=== PATIENT | female | born 1960 | race Caucasian/White ===

== ENCOUNTER → 2020-09-06 14:37 | Outpatient (BNVA) | payer OTHER, SELFPAY | PROVIDERS: Family Provider Family Medicine; PCP Obstetrics & Gynecology; Visit Provider Internal Medicine | DX: R76.8 Other specified abnormal immunological findings in serum (principal); M25.50 Pain in unspecified joint; Z79.899 Other long term (current) drug therapy; Z11.59 Encounter for screening for other viral diseases; M35.00 Sjogren syndrome, unspecified; R53.83 Other fatigue | CPT/HCPCS: 99204 ==

== ENCOUNTER 2020-09-06 16:09 | Outpatient (CLI) | payer MEDICARE, MEDICAID, SELFPAY ==
--- NOTE | 2020-09-06 16:26 | XR_ITS ---
WS: [id number] Exam: XR hand LT 2V [id number] Date/Time of Exam: 09/06/2020 4:34 PM Reason For Exam: R76.8 - Other specified abnormal immunological findings in serum No fracture or dislocation. Mild degenerative changes in the IP joints. Moderate degenerative change of the IP joint of the thumb. No soft tissue foreign bodies. No cortical erosions or periarticular de mineralization. XR/XR hand LT 2V [id number] IMPRESSION: 1. Mild degenerative changes in the IP joints particularly the DIP joint of the thumb. 2. No fracture or other significant finding.
--- NOTE | 2020-09-06 16:26 | XR_ITS ---
WS: [id number] Exam: XR hand RT 2V [id number] Date/Time of Exam: 09/06/2020 4:34 PM Reason For Exam: R76.8 - Other specified abnormal immunological findings in serum No fracture or dislocation. There are moderate degenerative changes in the IP joints. No cortical ero sions or periarticular demineralization of bone. No soft tissue foreign bodies. XR/XR hand RT 2V [id number] IMPRESSION: 1. Moderate degenerative changes in the IP joints. No other significant finding .
--- NOTE | 2020-09-06 16:26 | XR_ITS ---
WS: [id number] Exam: XR sacroiliac jts m 3V [id number] Date/Time of Exam: 09/06/2020 4:34 PM Reason For Exam: L40.9 - Psoriasis, unspecified There is moderate degenerative change of the bilateral sacroiliac joints. No fracture or dislocation. No sign of bone destruction. The bilateral sacroiliac joints are open. XR/XR sacroiliac jts m 3V [id number] IMPRESSION: 1. Moderate degenerative change of both SI joints. No other significant finding .
[2020-09-06 17:16] LABS: Add Urine Microscopic? NO
[2020-09-06 17:33] LABS: Basophils % 0.3 %; Eosinophils # 0.2 10^3/uL (0.0-0.8); Eosinophils % 3.5 %; Hematocrit 36.3 % (37.0-47.0); Hemoglobin 11.8 g/dL (11.5-15.3); Lymphocytes # 2.3 10^3/uL (0.8-4.8); Lymphocytes % 33.9 %; Mean Corpuscular HGB Conc 32.5 g/dL (30.0-36.0); Mean Corpuscular Hemoglobin 26.4 pg (28.0-34.0); Mean Corpuscular Volume 81.2 fL (81-99); Mean Platelet Volume 9.9 fL (7.4-10.4); Monocytes # 0.6 10^3/uL (0.2-0.9); Monocytes % 8.6 %; Neutrophils # 3.68 10^3/uL (1.8-7.7); Neutrophils % 53.4 %; Nucleated Red Blood Cells % 0 %; Platelet Count 275 10^3/cmm (130-400); Red Blood Count 4.47 10^6/uL (4.1-5.3); Red Cell Distribution Width 13.3 % (12.1-15.1); White Blood Count 6.9 10^3/uL (4.0-10.0)
[2020-09-06 17:40] LABS: Creatine Phosphokinase 57 U/L (26-192)
[2020-09-06 17:49] LABS: Bilirubin Urine Neg (Negative); Blood Urine Neg (Negative); Glucose Urine UA Norm (Normal); Ketones Urine Negative (Negative); Leukocyte Esterase Urine Negative (Negative); Nitrate Urine Negative (Negative); Protein Urine Neg (Negative); Specific Gravity, Urine 1.005 (1.005-1.030); Urine Appearance Cloudy (CLEAR); Urine Color Yellow (Yellow); Urobilinogen Urine Norm (Negative); pH Urine 5 (5-7)
[2020-09-06 18:56] LABS: Hepatitis B Core AB, Total Non-Reactive (Nonreactive); Hepatitis B Surface Antigen Non-Reactive (Nonreactive)
[2020-09-06 19:34] LABS: Complement C3 127 mg/dL (90-180)
[2020-09-10 14:26] LABS: COMPLEMENT COMPONENT C3C 140 mg/dL (83-193); COMPLEMENT COMPONENT C4C 22 mg/dL (15-57)
[2020-09-10 15:27] LABS: COMPLEMENT, TOTAL (CH50) 56 U/mL (31-60); Cyclic Citrullinated Peptide <16 UNITS
[2020-09-11 16:11] LABS: CENTROMERE B ANTIBODY <1.0 NEG AI (<1.0 NEG); JO-1 ANTIBODY <1.0 NEG AI (<1.0 NEG); RNP ANTIBODY <1.0 NEG AI (<1.0 NEG); SCL-70 ANTIBODY <1.0 NEG AI (<1.0 NEG); SJOGREN'S ANTIBODY (SS-A) <1.0 NEG AI (<1.0 NEG); SM ANTIBODY <1.0 NEG AI (<1.0 NEG); SS-B <1.0 NEG AI (<1.0 NEG)
[2020-09-12 12:19] LABS: ANA PATTERN Nuclear Envelope; ANA SCREEN, IFA POSITIVE (NEGATIVE)
[2020-09-12 16:58] LABS: THYROID PEROXIDASE ANTIBODIES 121 IU/mL (<9)
[2020-09-16 00:28] LABS: DNA AB (DS) CRITHIDIA,IFA NEGATIVE (NEGATIVE)
== END 2020-09-06 16:10 | disposition home or self-care (01) ==
PROVIDERS: PCP Obstetrics & Gynecology; Visit Provider Internal Medicine
DX: R76.8 Other specified abnormal immunological findings in serum (principal); L40.9 Psoriasis, unspecified; D86.9 Sarcoidosis, unspecified; Z11.59 Encounter for screening for other viral diseases
CPT/HCPCS: 36415; 72202; 73120; 81003; 82550; 85025; 86160; 86162; 86235; 86255; 86376; 86431; 86704; 87340

== ENCOUNTER → 2020-12-28 10:44 | Outpatient (BNVA) | payer MEDICARE, MEDICAID, SELFPAY | PROVIDERS: PCP Obstetrics & Gynecology; Visit Provider Internal Medicine | DX: R76.8 Other specified abnormal immunological findings in serum (principal); M53.3 Sacrococcygeal disorders, not elsewhere classified; M25.50 Pain in unspecified joint; R53.83 Other fatigue; D86.9 Sarcoidosis, unspecified | CPT/HCPCS: 36415; 80053; 82550; 82607; 83735; 84100; 85025; 86160; 86812; 99213; 99214 ==

== ENCOUNTER 2020-12-28 12:41 | Outpatient (CLI) | payer MEDICARE, MEDICAID, SELFPAY ==
[2020-12-28 13:20] LABS: Basophils % 0.6 %; Eosinophils # 0.3 10^3/uL (0.0-0.8); Eosinophils % 4.6 %; Hematocrit 36.1 % (37.0-47.0); Lymphocytes # 2.5 10^3/uL (0.8-4.8); Lymphocytes % 35.4 %; Mean Corpuscular HGB Conc 33.2 g/dL (30.0-36.0); Mean Corpuscular Hemoglobin 28.2 pg (28.0-34.0); Mean Corpuscular Volume 84.7 fL (81-99); Mean Platelet Volume 9.6 fL (7.4-10.4); Monocytes # 0.5 10^3/uL (0.2-0.9); Monocytes % 7.8 %; Neutrophils # 3.56 10^3/uL (1.8-7.7); Neutrophils % 51.5 %; Nucleated Red Blood Cells % 0 %; Platelet Count 259 10^3/cmm (130-400); Red Blood Count 4.26 10^6/uL (4.1-5.3); Red Cell Distribution Width 12.3 % (12.1-15.1); White Blood Count 6.9 10^3/uL (4.0-10.0)
[2020-12-28 13:38] LABS: Alanine Aminotransferase 20 U/L (0-33); Alkaline Phosphatase 59 IU/L (35-105); Anion Gap 11.5 (5-19); Aspartate Amino Transferase 18 U/L (0-32); Blood Urea Nitrogen 9 mg/dL (6-20); Calcium 8.6 mg/dL (8.5-10.5); Carbon Dioxide 31 mmol/L (22-29); Chloride 93 mmol/L (98-107); Creatine Phosphokinase 49 U/L (26-192); Globulin 2.7 g/dL (1.3-4.6); Glomerular Filtration Rate 126.7 mL/min (90-130); Glucose 108 mg/dL (65-115); Magnesium 1.6 mg/dL (1.7-2.3); Osmolality Calculated 273 mOsm/kg (285-295); Phosphorus 3.8 mg/dL (2.5-4.5); Potassium 3.5 mmol/L (3.5-5.1); Sodium 132 mmol/L (136-145); Total Bilirubin 0.3 mg/dL (0.15-1.2); Total Protein 6.7 g/dL (6.6-8.7)
[2020-12-28 13:54] LABS: Vitamin B12 579 pg/mL (232-1245)
[2020-12-28 14:58] LABS: Complement C3 134 mg/dL (90-180)
[2021-01-02 16:18] LABS: HLA-B27 NEGATIVE (NEGATIVE)
== END 2020-12-28 12:42 | disposition home or self-care (01) ==
PROVIDERS: PCP Obstetrics & Gynecology; Visit Provider Internal Medicine
DX: M53.3 Sacrococcygeal disorders, not elsewhere classified (principal); D86.9 Sarcoidosis, unspecified
CPT/HCPCS: 36415; 80053; 82550; 82607; 83735; 84100; 85025; 86160; 86812

== ENCOUNTER → 2021-03-25 11:00 | Outpatient (BNVA) | payer MEDICARE, MEDICAID, SELFPAY | PROVIDERS: PCP Obstetrics & Gynecology; Referring Provider Internal Medicine; Visit Provider Anesthesiology Pain Medicine | DX: G89.29 Other chronic pain (principal); M43.12 Spondylolisthesis, cervical region; M48.062 Spinal stenosis, lumbar region with neurogenic claudication; Z79.891 Long term (current) use of opiate analgesic | CPT/HCPCS: 99204 ==

== ENCOUNTER 2021-04-15 13:31 | Outpatient (CLI) | payer MEDICARE, MEDICAID, SELFPAY ==
--- NOTE | 2021-04-15 13:45 | MR_ITS ---
WS: [id number] MRI LUMBAR SPINE NONCONTRAST HISTORY: M48.062 - Spinal stenosis, lumbar region with neurogenic claudication. COMPARISON: None available. TECHNIQUE: Sagittal and axial multisequence imaging is submitted. Marked increase in thoracic kyphosis and lumbar lordosis. Posterior lumbar alignment is normal. Moderate disc space narrowing and desiccation with osteophytes and facet arthritis. No acute marrow e kushal or fracture. Conus terminates normally at L1-2 disc level. Facet joint arthritis at T10-11 and T11-12 encroaching into the posterior thecal sac. No high-grade s tenosis evident. L1-L2: Minimal narrowing of the RIGHT foramen. L2-L3: Mild annular disc bulging with mild ligamentum flavum and facet arthritis. Mild foraminal narr owing. L3-L4: Mild annular disc bulging and a very shallow central disc protrusion. There is an additional L EFT foraminal disc protrusion causing mild narrowing of the subarticular recess. Mild bilateral ligam entum flavum hypertrophy and facet arthritis. L4-L5: Mild annular disc bulging with a moderate size central disc protrusion. Disc protrusion causin g mild effacement of the ventral thecal sac. Moderate ligamentum flavum and facet arthritis. These co mbination of factors are causing moderate central with bilateral subarticular recess and mild foramin al stenosis. L5-S1: Mild annular disc bulging and facet arthritis. No stenosis. MR/MR lumbar spine wo con* [id number] IMPRESSION: 1. Moderate increase in lumbar lordosis. 2. Moderate central and bilateral subarticular recess stenosis L4-5 with mild foraminal stenosis. 3. Moderate size central disc protrusion at L4-5 contributing to the central s tenosis. 4. Shallow central disc protrusion at L3-4 and a small LEFT foraminal disc pro trusion causing mild narrowing of the subarticular recess. 5. Facet joint arthritis throughout the lumbar spine most significant at L4-5 and L5-S1.
== END 2021-04-15 13:32 | disposition home or self-care (01) ==
PROVIDERS: PCP Obstetrics & Gynecology; Visit Provider Anesthesiology Pain Medicine
DX: M48.062 Spinal stenosis, lumbar region with neurogenic claudication (principal); M48.061 Spinal stenosis, lumbar region without neurogenic claudication; M51.26 Other intervertebral disc displacement, lumbar region; M47.816 Spondylosis without myelopathy or radiculopathy, lumbar region
CPT/HCPCS: 72148

== ENCOUNTER → 2021-04-22 10:55 | Outpatient (BNVA) | payer MEDICARE, MEDICAID, SELFPAY | PROVIDERS: PCP Obstetrics & Gynecology; Visit Provider Anesthesiology Pain Medicine | DX: G89.29 Other chronic pain (principal); M47.816 Spondylosis without myelopathy or radiculopathy, lumbar region; M79.604 Pain in right leg; M79.605 Pain in left leg; M54.2 Cervicalgia; Z79.891 Long term (current) use of opiate analgesic | CPT/HCPCS: 99214 ==

== ENCOUNTER → 2021-05-27 12:47 | Outpatient (BNVA) | payer MEDICARE, MEDICAID, SELFPAY | PROVIDERS: PCP Obstetrics & Gynecology; Visit Provider Anesthesiology Pain Medicine | DX: Z01.812 Encounter for preprocedural laboratory examination (principal); M54.16 Radiculopathy, lumbar region | CPT/HCPCS: 36416; 64483; 64484; 82962; J1100; J3490 ==

== ENCOUNTER → 2021-06-20 12:53 | Outpatient (BNVA) | payer MEDICARE, MEDICAID, SELFPAY | PROVIDERS: PCP Obstetrics & Gynecology; Visit Provider Anesthesiology Pain Medicine | DX: M25.50 Pain in unspecified joint (principal); M35.00 Sjogren syndrome, unspecified; M53.3 Sacrococcygeal disorders, not elsewhere classified; R76.8 Other specified abnormal immunological findings in serum; Z79.899 Other long term (current) drug therapy; M54.9 Dorsalgia, unspecified; G89.29 Other chronic pain; M47.816 Spondylosis without myelopathy or radiculopathy, lumbar region; M54.2 Cervicalgia; M79.604 Pain in right leg; M79.605 Pain in left leg; Z79.891 Long term (current) use of opiate analgesic; Z98.1 Arthrodesis status | CPT/HCPCS: 36415; 80053; 85025; 85651; 86140; 99214 ==

== ENCOUNTER → 2021-06-24 13:26 | Outpatient (BNVA) | payer MEDICARE, MEDICAID, SELFPAY | PROVIDERS: PCP Obstetrics & Gynecology; Visit Provider Internal Medicine | DX: R76.8 Other specified abnormal immunological findings in serum (principal); M53.3 Sacrococcygeal disorders, not elsewhere classified; M25.50 Pain in unspecified joint; M48.00 Spinal stenosis, site unspecified; K85.90 Acute pancreatitis without necrosis or infection, unspecified; Z79.899 Other long term (current) drug therapy | CPT/HCPCS: 99214 ==

== ENCOUNTER → 2021-07-30 14:34 | Outpatient (BNVA) | payer MEDICARE, MEDICAID, SELFPAY | PROVIDERS: PCP Obstetrics & Gynecology; Visit Provider Anesthesiology Pain Medicine | DX: Z79.891 Long term (current) use of opiate analgesic (principal); M47.816 Spondylosis without myelopathy or radiculopathy, lumbar region | CPT/HCPCS: 64493; 64494; 64495; J3490 ==

== ENCOUNTER → 2021-08-12 13:28 | Outpatient (BNVA) | payer MEDICARE, MEDICAID, SELFPAY | PROVIDERS: PCP Obstetrics & Gynecology; Visit Provider Anesthesiology Pain Medicine | DX: G89.29 Other chronic pain (principal); M47.816 Spondylosis without myelopathy or radiculopathy, lumbar region | CPT/HCPCS: 64493; 64494; 64495; J3490 ==

== ENCOUNTER → 2021-08-26 09:31 | Outpatient (BNVA) | payer MEDICARE, MEDICAID, SELFPAY | PROVIDERS: PCP Obstetrics & Gynecology; Visit Provider Anesthesiology Pain Medicine | DX: G89.29 Other chronic pain (principal); M48.062 Spinal stenosis, lumbar region with neurogenic claudication; M54.2 Cervicalgia; M79.605 Pain in left leg; M79.604 Pain in right leg; Z79.891 Long term (current) use of opiate analgesic | CPT/HCPCS: 99214 ==

== ENCOUNTER → 2021-09-10 14:58 | Outpatient (BNVA) | payer MEDICARE, MEDICAID, SELFPAY | PROVIDERS: PCP Obstetrics & Gynecology; Visit Provider Physician Assistant | DX: M54.50 Low back pain, unspecified (principal); M48.061 Spinal stenosis, lumbar region without neurogenic claudication | CPT/HCPCS: 72110 ==

== ENCOUNTER → 2021-09-30 09:19 | Outpatient (BNVA) | payer MEDICARE, MEDICAID, SELFPAY | PROVIDERS: PCP Obstetrics & Gynecology; Visit Provider Internal Medicine | DX: R76.8 Other specified abnormal immunological findings in serum (principal); M53.3 Sacrococcygeal disorders, not elsewhere classified; M51.36 Other intervertebral disc degeneration, lumbar region; R53.83 Other fatigue | CPT/HCPCS: 99214 ==

== ENCOUNTER 2021-10-21 13:39 | Observation (INO) | payer MEDICARE, MEDICAID, SELFPAY ==
[2021-10-16 13:30] VITALS: BMI 39.6
--- NOTE | 2021-10-16 13:38 | ANES.PREANE2 ---
Pre-Anesthetic Assessment Height/Weight: Height 1.57 m Weight 98.43 kg Operation Date: 10/21/21 07:00 Proposed Procedures p PLIF [id number]/42891/99439/19210/M48.062/M51.36(Not Applicable) - Cole Medina, DO Familial anesthetic complications: None Social No alcohol and No tobacco Exam alert, oriented x 3, clear to auscultation bilaterally and regular rate & rhythm Airway Mallampati: Class III Dentition: partials and other (crowns) CV/HEM Hypertension None reported Hepatic None reported Metabolic Diabetes Mellitus and Morbid Obesity [facility] Rheumatoid Arthritis (has had neck fused) SIVAKUMAR positive, but diagnosed w/ lupus Neuropsych None reported Anesthetic Plan ASA status: 4 Risk of > 500 ml blood loss (7ml/kg in children): No Medications/Allergies Home Medications Medication Instructions Recorded Confirmed Last Taken Type atenolol 50 mg tablet 50 mg PO DAILY 09/06/20 10/16/21 Unknown History fluticasone propionate 50 1 spray INTRANASAL DAILY 09/06/20 10/16/21 Unknown History mcg/actuation nasal spray,suspension glipizide 5 mg tablet 5 mg PO BEDTIME 09/06/20 10/16/21 Unknown History hydrochlorothiazide 50 mg tablet 50 mg PO DAILY 09/06/20 10/16/21 Unknown History hydrocodone 10 mg-acetaminophen 1 tab PO Q6H PRN 09/06/20 10/16/21 Unknown History 325 mg tablet isosorbide mononitrate 30 mg 30 mg PO DAILY 09/06/20 10/16/21 Unknown History tablet,extended release 24 hr lisinopril 40 mg tablet 40 mg PO DAILY 09/06/20 10/16/21 Unknown History omeprazole 40 mg capsule,delayed 40 mg PO DAILY 09/06/20 10/16/21 Unknown History release oxybutynin chloride 5 mg tablet 5 mg PO BID 09/06/20 10/16/21 Unknown History potassium chloride 20 mEq 20 meq PO BID 09/06/20 10/16/21 Unknown History tablet,extended release(part/cryst) (Klor-Con M) pravastatin 20 mg tablet 20 mg PO DAILY 09/06/20 10/16/21 Unknown History pseudoephedrine HCl 30 mg tablet 30 mg PO Q6H 09/06/20 10/16/21 Unknown History citalopram 40 mg tablet 40 mg PO DAILY 10/16/21 10/16/21 Unknown History gabapentin 100 mg capsule 100 mg PO TID 10/16/21 10/16/21 Unknown History godveicncpxf-qqgkolep-hzdlpy 1 tab PO BEDTIME 10/16/21 10/16/21 Unknown History tablet (Multivitamin 50 Plus) sennosides 8.6 mg tablet (senna) 8.6 mg PO DAILY PRN 10/16/21 10/16/21 Unknown History sulfasalazine 500 mg tablet 500 mg PO DAILY 10/16/21 10/16/21 Unknown History Allergies Allergy/AdvReac Type Severity Reaction Status Date / Time No Known Allergies Allergy Verified 09/30/21 09:36 PFS Anesthesia Family History Mother Stroke Hypertension Family history of premature coronary artery disease Diabetes Cancer CAD (coronary artery disease) Rheumatoid arthritis Father Hypertension Diabetes CAD (coronary artery disease) Family/Other Lupus Social History Smoking and tobacco status: never smoked Second hand smoke exposure: No Alcohol intake: never Lives independently: Yes History of recent travel: No Data Anesthesia Cardiac Studies: No Data to Display
[2021-10-16 14:15] LABS: Basophils % 0.6 %; Hematocrit 35.1 % (37.0-47.0); Hemoglobin 11.7 g/dL (11.5-15.3); Lymphocytes # 2.1 10^3/uL (0.8-4.8); Lymphocytes % 31.3 %; Mean Corpuscular HGB Conc 33.3 g/dL (30.0-36.0); Mean Corpuscular Hemoglobin 27.9 pg (28.0-34.0); Mean Corpuscular Volume 83.8 fl (81-99); Mean Platelet Volume 9.5 fL (7.4-10.4); Monocytes # 0.5 10^3/uL (0.2-0.9); Monocytes % 7.9 %; Neutrophils # 3.99 10^3/uL (1.8-7.7); Neutrophils % 59.8 %; Nucleated Red Blood Cells % 0 %; Platelet Count 225 10^3/cmm (130-400); Red Blood Count 4.19 10^6/uL (4.1-5.3); Red Cell Distribution Width 12.2 % (12.1-15.1); White Blood Count 6.7 10^3/uL (4.0-10.0)
[2021-10-16 14:31] LABS: Alanine Aminotransferase 15 U/L (0-33); Albumin Level 4.2 g/dL (3.5-5.2); Alkaline Phosphatase 64 IU/L (35-105); Anion Gap 14.4 (5-19); Aspartate Amino Transferase 16 U/L (0-32); Blood Urea Nitrogen 14 mg/dL (6-20); Calcium 9.2 mg/dL (8.5-10.5); Carbon Dioxide 27 mmol/L (22-29); Chloride 93 mmol/L (98-107); Globulin 2.6 g/dL (1.3-4.6); Glomerular Filtration Rate 126.3 mL/min (90-130); Glucose 154 mg/dL (65-115); Osmolality Calculated 276 mOsm/kg (285-295); Potassium 3.4 mmol/L (3.5-5.1); Sodium 131 mmol/L (136-145); Total Bilirubin 0.3 mg/dL (0.15-1.2); Total Protein 6.8 g/dL (6.6-8.7)
[2021-10-21] VITALS (34 sets, daily range): BP systolic 99–159; BP diastolic 49–79; PULSE 53–75; RESP 12–27; TEMP 36.6–37.5; O2SAT 92–100
--- NOTE | 2021-10-21 | XR_ITS ---
WS: [id number] C-ARM RADIOGRAPHS LUMBAR SPINE; 3 IMAGES HISTORY: spondylosis, stenosis COMPARISON: None available. Intraoperative imaging during lumbar fusion. Posterior fusion hardware at L4-5 with interbody spacer. XR/XR lumbar spine 2-3V* [id number] IMPRESSION: Intraoperative imaging during posterior lumbar fusion.
--- NOTE | 2021-10-21 | SCC_ITS ---
Procedure done: 1. L4/5 Interbody fusion with posterolateral fusion 2. Instrumentation L4/5 3. Cage at L4/5 4. Laminectomy L4 with partial facetectomy to deompress nerve 5. use of autograft from same incision 6. allograft 7. Bone marrow aspirate from right iliac crest 8. Computer navigation/ stereo tactic for the spine 1 second of fluoroscopic guidance, for a cumulative dose of 83.4 mGy, was provided to Dr. Medina by the radiology department. C-arm images of the lumbar spine were saved for the patient's permanent record. [facility]
--- NOTE | 2021-10-21 09:32 | P.HP_ITS ---
Providers/Chief Complaint Primary Care Provider: Sathya Villalpando MD Chief Complaint: idd, Spondylosis,spinal stenosis History of Present Illness Abby Alcantara is a 61 year old female lumbar back and right lower extremity pain. Patient states the back pain has been ongoing on for years and progressively has intensified.? Patient states the pain has been constant sharp and aching. with pain radiating down the right leg. Patient states she has hydrocodone from her PCP, she cannot take NSAIDS due to her stomach issues. Patient states that she had cortisone injections by Dr. Caicedo with approximately 2 weeks of improvement. Patient has been through physical therapy with out improvement.? She denies any loss of bowel or bladder control.? Rest gives her some short-term relief, with activities making her symptoms much worse.? She cannot walk more than a block before she has to sit down because of her back and leg pain.? She reports 80% back pain 20% right lower extremity pain.? She has diabetic her last hemoglobin A1c was 6 with her blood sugars being between 110- 120s. Review of Systems General: Reports: 10 or more systems reviewed and unremarkable except in HPI and below Const: Reports: fatigue; Denies: fever(s) or chills Eyes: Reports: other; Denies: change in vision Card: Denies: chest pain Resp: Denies: dyspnea GI: Denies: nausea or vomiting Musc: Reports: joint pain, joint swelling and muscle weakness Skin/Breast: Denies: rash Neuro: Reports: numbness in extremities Psych: Reports: depression Medications/Allergies Home Medications Medication Instructions Recorded Confirmed Last Taken Type atenolol 50 mg tablet 50 mg PO DAILY 09/06/20 10/16/21 Unknown History fluticasone propionate 50 1 spray INTRANASAL DAILY 09/06/20 10/16/21 Unknown History mcg/actuation nasal spray,suspension glipizide 5 mg tablet 5 mg PO BEDTIME 09/06/20 10/16/21 Unknown History hydrochlorothiazide 50 mg tablet 50 mg PO DAILY 09/06/20 10/16/21 Unknown History hydrocodone 10 mg-acetaminophen 1 tab PO Q6H PRN 09/06/20 10/16/21 Unknown History 325 mg tablet isosorbide mononitrate 30 mg 30 mg PO DAILY 09/06/20 10/16/21 Unknown History tablet,extended release 24 hr lisinopril 40 mg tablet 40 mg PO DAILY 09/06/20 10/16/21 Unknown History omeprazole 40 mg capsule,delayed 40 mg PO DAILY 09/06/20 10/16/21 Unknown History release oxybutynin chloride 5 mg tablet 5 mg PO BID 09/06/20 10/16/21 Unknown History potassium chloride 20 mEq 20 meq PO BID 09/06/20 10/16/21 Unknown History tablet,extended release(part/cryst) (Klor-Con M) pravastatin 20 mg tablet 20 mg PO DAILY 09/06/20 10/16/21 Unknown History pseudoephedrine HCl 30 mg tablet 30 mg PO Q6H 09/06/20 10/16/21 Unknown History citalopram 40 mg tablet 40 mg PO DAILY 10/16/21 10/16/21 Unknown History gabapentin 100 mg capsule 100 mg PO TID 10/16/21 10/16/21 Unknown History mcwtvehylkxu-ffexodmg-asemso 1 tab PO BEDTIME 10/16/21 10/16/21 Unknown History tablet (Multivitamin 50 Plus) sennosides 8.6 mg tablet (senna) 8.6 mg PO DAILY PRN 10/16/21 10/16/21 Unknown History sulfasalazine 500 mg tablet 500 mg PO DAILY 10/16/21 10/16/21 Unknown History Allergies Allergy/AdvReac Type Severity Reaction Status Date / Time No Known Allergies Allergy Verified 09/30/21 09:36 PFSH Acute PFSH: Family History Mother Stroke Hypertension Family history of premature coronary artery disease Diabetes Cancer CAD (coronary artery disease) Rheumatoid arthritis Father Hypertension Diabetes CAD (coronary artery disease) Family/Other Lupus Social History Smoking and tobacco status: never smoked Second hand smoke exposure: No Alcohol intake: never Lives independently: Yes History of recent travel: No Physical Exam Narrative: CONSTITUTIONAL: The patient is a normal appearing [] in no apparent distress. GENERAL: Patient in no acute distress. CARDIAC: Regular rate and rhythm. CHEST: Normal inspiratory effort, normal respiratory rate. ABDOMEN: Soft and nontender. SKIN: Clear, warm and intact. NEURO?PSYCH: The patient is alert and oriented to person, place and time. Sensorv /SILT Motor StrengthShoulder abduction C5 5/5Wrist extension C6 5/5Elbow extension C7 5/5Hand High Pressure Cleaner C8 5/5Finger abduction T15/5 Radial/ Ulnar/ Median n intact LowerSensory (SILT)Motor StrengthHin flexion L2/3Ant/inner thigh 5/5Hip adduction L2/3 5/5Knee extension L4 Lat thigh, 5/5Toe dorsiflexion L5 5/5Ankle dorsiflexion L5/ L26Oelojfy flexion S1 5/5 DTRBleeps 2+Triceps 2+Brachioradialis 2+Patellar 2+Achilles 2+ MUSCULOSKELETAL: [] UPPEREXTREMITIES: The patient had full active ROM in fingers, wrist, elbow, and shoulder. The patient demonstrated ability to fully flex/extend/abduct/adduct fingers, make ok sign, cross 2nd/3rd digits, extend 1st digit fully.. Radial pulse 2+, CR<2 seconds. LOWER EXTREMITIES: Pt has full, active ROM of toes, ankle, knee, and hip. Dorsalis pedis/posterior tibialis pulses 2+, CR<2 seconds. SPINE: Skin warm, dry, intact. Data : 10/16/21 14:00 10/16/21 14:00 A&P Assessment and plan (1) Spondylolisthesis at L4-L5 level: L$/5 PLIF Status: Acute Attestations Medical Necessity Statement*: failed conservative treatment Coding Level of Care Code Acute Heel Reducer for Nadineg Pilar Diagnoses Spondylolisthesis at L4-L5 level M43.16
[2021-10-21 10:09] LABS: Glucose Point of Care 128 mg/dL (70-110)
[2021-10-21] MEDS: sodium chloride 0.9% 1,000 ML 30 ML IV (10:21)
--- NOTE | 2021-10-21 10:23 | P.ANESUD_ITS ---
Pre-Anesthetic Update Pre-Anesthetic Assessment: Date of Surgery/Procedure: 10/21/21 Preop Sabina gnosis: Spondylolisthesis L4-5 w/ lumbar stenosis Proposed Procedure: Operation Date: 10/21/21 10:10 Proposed Procedures p PLIF L 4-5 [id number]/[id number]/[id number]/33731/M48.062/M51.36(Not Applicable) - Cole Medina, DO Any changes to Pre-Anesthetic Assessment?: No Last Intake: Intake Last Liquid Date 10/20/21 Last Liquid Time 23:00 Last Solid Date 10/20/21 Last Solid Time 23:00 Vitals: Temperature 97.9 F 10/21/21 09:39 Temperature Source Temporal Artery S can 10/21/21 09:39 Pulse Rate 57 L 10/21/21 09:39 Pulse Rhythm 10/21/21 09:52 Pulse Strength 3+ Normal 10/21/21 09:52 Respiratory Rate 16 10/21/21 09:39 Blood Pressure 155/79 10/21/21 09:39 Blood Pressure Antonella n 104 10/21/21 09:39 Pulse Oximetry 96 10/21/21 09:39 Oxygen Delivery Me thod 10/21/21 09:52 Exam: Pre-Anes Outpt Exam: alert, oriented x 3, clear to auscultation bilaterally and regular rate & rhythm Cardiac Studies: No Data to Display
[2021-10-21] MEDS: heparin, porcine 1,000 unit/mL INJ 10 mL 10000 UNIT IRRIGATION (11:55)
[2021-10-21] MEDS: vancomycin 1,000 MG SDV 1000 MG XX (11:56)
--- NOTE | 2021-10-21 13:50 | P.OP_ITS ---
Operative Report Date of procedure: October 21, 2021 Pre-op diagnosis: Preop Diagnosis Spondylolisthesis L4-5 w/ lumbar stenosis Post-op diagnosis: same Procedure done: 1. L4/5 Interbody fusion with posterolateral fusion 2. Instrumentation L4/5 3. Cage at L4/5 4. Laminectomy L4 with partial facetectomy to deompress nerve 5. use of autograft from same incision 6. allograft 7. Bone marrow aspirate from right iliac crest 8. Computer navigation/ stereo tactic for the spine Surgeon: Cole Medina Domestic Housekeeper: Reynaldo Trevizo Domestic Housekeeper: The registered nurse surgical services, Reynaldo Trevizo, PAC was needed for his expertise under the microscope. He was important and necessary throughout the procedure to complete in a safe and timely manner. He assisted with patient positioning prepping and draping tissue retraction suctioning of the operative field protection of the dural sac and tissue closure Estimated blood loss (mL): 200 Procedure: 1. L4/5 Interbody fusion with posterolateral fusion 2. Instrumentation L4/5 3. Cage at L4/5 4. Laminectomy L4 with partial facetectomy to deompress nerve 5. use of autograft from same incision 6. allograft 7. Bone marrow aspirate from right iliac crest 8. Computer navigation/ stereo tactic for the spine Patient is brought to the operative suite. After undergoing anesthesia, the patient had neuro monitoring attached. Patient was then placed in the prone position on the Kings table. All areas of impingement were well-padded. Patient was then prepped and draped in the normal sterile fashion. Skin incision was then made over the L4/5 disc space. Subperiosteal dissection was made out to the transverse processes of L4 and L5. Next the [employer] bone marrow aspirate kit was used to aspirate bone marrow aspirate from the right iliac crest. This was done by using the sharp probe to open up the bone. Aspiration was performed and then the blunt probe was then used to dissect down to through the bone tunnel. An aspirating well drawn back a millimeter approximately 20 cc of bone marrow aspirate was used. And mixed with the allograft and autograft bone that will be used. The fiducial for the computer navigation was placed. This was done by placing 2 K wire pins into the right iliac crest. These pins were removed at the end of the case. The fiducial was attached onto these 2 K wires. The C-arm was broug ht in and spun around the patient. The information from the C-arm was then linked into the computer in order to facilitate using computer navigation for placement of the pedicle screws. The technique for placing the pedicle screws was to use a drill followed by the gearshift probe linked to the computer navigation Followed by the ball probe to feel the superior inferior medial lateral carnes of the pedicles. Then placement of the screws linked to the computer navigation Was done at each pedicle. Screws were placed at L4 bilaterally and L5 bilaterally. Next attention was brought to performing the laminectomy ofL4. This was done using the high-speed bur Kerrisons and curettes. Once the lamina was removed and then attention was brought to performing a partial facetectomy on the cont ralateral side. This was done again using the high-speed bur curettes and Kerrisons. The ligamentum flavum was taken down bilaterally from L4 to L5. Attention was then brought to the facet on the ipsilateral side. The facet was taken down. The L5 nerve was decompressed as it passed around the L5 pedicle. The laminectomy was done for purposes of decompressing the nerve as well as placement of the cage. The L4 nerve was identified as it traversed through the L4/5 foramen. The thecal sac was identified and retracted. The L4/5 disc base was identified. Using a knife the disc base was opened. And then sequential davonte were placed. The first shaver was a 6 and the last shaver was a 12. Using a pituitary and down going curette the endplates were scraped and disc material was removed from the space. Once adequate decompression of the disc base was felt to be had. Osteoamp sponge was packed into the anterior aspect of the disc base. Then a size 12 cage from [employer] was placed after packing osteoamp into the cage. While placing the cage the thecal sac and L5 nerve was protected. C arm was used to ensure that the cages placed in the appropriate position. Attention was then brought to attaching the rods to the screws placed in the L L4 and L5 bilaterally. Caps were torqued into position. Locking the construct in place. Wound was copiously irrigated and then attention was brought to decorticating the facets and transverse processes laterally. Bone that was taken down from the lamina was used along with osteoamp fibers and sponges were packed into the lateral gutters along the facet joints. This was done bilaterally. Wound was then closed in a layered fashion starting with the thoracolumbar fascia. 0-vicryl was used the sub cutaneous tissue was closed with 2-0 vicryl and skin with 4-0 monocryl. Glue was then used to seal the skin and a steril dressing was applied. Patient was then placed in the supine position. The endotracheal tube was removed and patient was transferred to the PACU in stable condition.
[2021-10-21] MEDS: HYDROmorphone 1 mg/mL INJ 1 mL 0.5 MG IVP ×2 (14:05→14:19)
--- NOTE | 2021-10-21 14:11 | SUR.PHASEI ---
1341 PT TO PACU SLEEPY WITH GOOD RESPIRATORY EFFORT NOTED, NO DISTRESS , ABDOMEN LARGE SOFT, PATIENT DOES NOT AWAKE TO VOICE, PT ID BRACELET AND BLOOD BRACELET TO LT WRIST , PT ID'D WITH 2 IDENTIFIERS. IV #18 TO RT WRIST, NS 250ML UP AT KVO RATE PER GRAVITY. PT HAS SILVERLON DRESSING TO LOWER BACK D/I , AC DRAIN TO LOWER BACK AREA, COMPRESSED FOR GOOD SUCTION, SMALL AMT RED DRAINAGE TO TUBING. NAKUL PEARCE AT BEDSIDE, ORDERS RECIEVED TO USE DILAUDID FIRST FOR ANY PACU PAIN. 1400 PT AWAKE NOW, ABLE TO WEAKLY MOVE BILAT FEET, BUT EQUAL, PT DOES DORAL FLEXATION AND EXTENSION TO COMMAND, PT C/O OF PAIN, SEE MED GIVEN
--- NOTE | 2021-10-21 14:22 | SUR.PHASEI ---
1419 PT REMAINS AWAKE, MOANS WITH PAIN, SEE PAIN MED REPEATED VSS AND, DRESSING SITE D/I HEMAVAC DRAIN COMPRESSED, BILAT FEET PINK WARM WITH PULSE NOTED +1. PT MOVES FEET EQUALLY TO COMMAND.
--- NOTE | 2021-10-21 15:04 | SUR.PHASEI ---
1425 PT SLEEPY NOW, BUT CONTINUES TO COMPLAIN OF PAIN TO BILAT LEGS NOW, PULSES TO BILAT FEET PALPATED AT +1 AND MARKED PT MOVES FEET UNCHANGED FROM EARLIER BUT STRENGTH REMAINS WEAK BILAT, DR DUMONT'S PA AT BEDSIDE EARLIER AND DID BILATERAL STRENGTH CHECK. SEE MEDS GIVEN 1505 PT SLEEPS IF NOT DISTURBED VSS IV PATENT AT KVO RATE, DRESSING D/I UNCHANGED DRAIN COMPRESSED WITH SMALL AMT RED DRAINAGE NOTED IN DRAIN, ROPER PATENT OF YELLOW URINE TO TUBING AND BAG.
--- NOTE | 2021-10-21 15:26 | SUR.PHASEI ---
FAMILY UPDATED PT STABLE AND NOW READY TO GO TO FLOOR, PT FAMILY SERVANDO CALLED AND UPDATED , HE WILL MEET PT IN ROOM.
--- NOTE | 2021-10-21 15:57 | ANE.PACU2 ---
Inpatient post-anesthesia follow up: Airway intact: Yes Vital signs: Temperature 99.5 F Pulse Rate 56 Respiratory Rate 18 Blood Pressure 122/65 Pulse Oximetry 99 Oxygen Delivery Me thod Nasal Cannula Oxygen Flow Rate 3 Fraction of Inspir ed Oxygen Hydration adequate: Yes Nausea and vomiting: No Pain level: 3 Mental status: Baseline
--- NOTE | 2021-10-21 16:07 | SUR.PHASEI ---
PT TO FLOOR PER BED PT AWAKE ALERT TALKATIVE WITH NURSE ZAY RN, PT LOG ROLLED AND DRESSING D/I, DRAIN COMPRESSED, PT BILAT FEET STRENGTH ASSESS AT BEDSIDE HANDOFF, PT SON AT BEDSIDE, PT BELONGINGS PURSE AND ONE BAG BROUGHT TO ROOM PT USING PHONE WITHOUT ASSIST, HOB FLAT.
[2021-10-21] MEDS: morphine 4 mg/mL SDV 1 mL 2 MG IVP ×4 (16:45→23:48)
[2021-10-21] MEDS: potassium chloride ER 20 mEq Tablet PO (16:46)
[2021-10-21] MEDS: docusate sodium 100 mg Capsule PO (16:46)
[2021-10-21] MEDS: acetaminophen 325 mg Tablet 650 MG PO (20:40)
[2021-10-21] MEDS: gabapentin 100 mg Capsule PO (20:40)
[2021-10-21] MEDS: oxybutynin 5 mg Tablet PO (20:40)
[2021-10-21] MEDS: ketorolac 30 mg/mL INJ IVP (21:13)
[2021-10-22] VITALS (8 sets, daily range): BP systolic 97–125; BP diastolic 51–68; PULSE 58–72; RESP 16–18; TEMP 36.5–36.6; O2SAT 92–96
[2021-10-22] MEDS: lactated ringers 1,000 ML 90 ML IV ×2 (01:57→09:46)
[2021-10-22] MEDS: morphine 4 mg/mL SDV 1 mL 2 MG IVP ×6 (02:10→21:57)
[2021-10-22] MEDS: enoxaparin 40 mg/0.4 mL Syringe SUBCUT (05:16)
--- NOTE | 2021-10-22 05:25 | PC.NURSE ---
SHIFT SUMMARY Pt started out shift with c/o back pain at a 10 . Has received IV Morphine, IV Toradol and po Tylenol and since around 2300 has rated pain at around a 5 . Says has been much more tolerable. 390ml sanguinous drainage from hemovac drain this shift. IV fluids infusing at 90ml/hr rate. Receiving IV postop antibiotics. Has been lying flat all shift. Has some numbness in BLE. Good pulses and cap refill present. BLE warm to touch. She can move feet and raise legs off bed about 6 inches. Touch to BLE is dulled. Beal intact and draining well. Taking po well without c/o nausea.
[2021-10-22] MEDS: ketorolac 30 mg/mL INJ IVP ×2 (05:28→11:23)
--- NOTE | 2021-10-22 07:31 | PM.PN ---
Subjective Subjective: Pod 1 Pt resting comfortably, Mild BAIN. Legs weak and back is sore. Denies CP/SOB. Vitals/I&O/Wt Last Vital Signs Temp 98.2 F 10/21/21 23:43 Pulse 70 10/22/21 04:56 Resp 18 10/22/21 05:29 BP 125/68 10/22/21 04:56 Pulse Ox 95 10/22/21 04:56 10/21/21 10/22/21 10/22/21 22:59 06:59 14:59 Intake Total 260 / 2019 360 / 2380 Output Total 540 / 1240 720 / 1960 Balance -280 / 780 -360 / 420 Physical Exam Narrative: Lumbar wound intact C/D, 4/5 strength in BLE, legs/fet warm with good cap refill, good sensation to light touch Urinary Catheter Management: Beal: Cath Placed During This Visit: yes Reason for Continuing Indwelling Catheter: Required Immobilization for Trauma or Surgery or Anesthesia Urinary Catheter Date of Insertion: 10/21/21 Urinary Catheter Time of Insertion: 11:10 Data : 10/16/21 14:00 10/16/21 14:00 A&P Assessment and plan (1) Status post lumbar spinal fusion: HOB up 30 degrees and progress to sitting today, Physical therapy to mobilize. Incentive spirometer every hr. DC hemovac drain. Status: Acute Attestations Medical Necessity Statement*: dc tomorrow if stable Coding Level of Care Code Acute Compliance Auditor for Chg Fwd Diagnoses Status post lumbar spinal fusion Z98.1
[2021-10-22] MEDS: atorvastatin 40 mg Tablet 20 MG PO (08:25)
[2021-10-22] MEDS: pantoprazole DR 40 mg Tablet PO (08:25)
[2021-10-22] MEDS: potassium chloride ER 20 mEq Tablet PO ×2 (08:25→17:33)
[2021-10-22] MEDS: hydroCHLOROthiazide 25 mg Tablet 50 MG PO (08:25)
[2021-10-22] MEDS: isosorbide mononitrate ER 30 mg Tablet PO (08:25)
[2021-10-22] MEDS: docusate sodium 100 mg Capsule PO ×2 (08:26→17:42)
[2021-10-22] MEDS: sulfaSALAzine 500 mg Tablet PO (08:26)
[2021-10-22] MEDS: fluticasone nasal spray 16gm Btl 1 SPRAY INTRANASAL (08:26)
[2021-10-22] MEDS: oxybutynin 5 mg Tablet PO ×2 (08:26→21:57)
[2021-10-22] MEDS: citalopram 20 mg Tablet 40 MG PO (08:26)
[2021-10-22] MEDS: atenolol 50 mg Tablet PO (08:26)
[2021-10-22] MEDS: lisinopril 20 mg Tablet 40 MG PO (08:26)
[2021-10-22] MEDS: gabapentin 100 mg Capsule PO ×2 (08:27→21:57)
[2021-10-22] MEDS: acetaminophen 325 mg Tablet 650 MG PO (09:45)
[2021-10-22] MEDS: ondansetron 2 mg/ML SDV 2 mL 4 MG IVP (13:09)
--- NOTE | 2021-10-22 13:34 | PC.NURSE ---
Patient started experiencing vomiting while attempting to administer PO Tylenol. Contacted Dr. Medina and obtained a verbal order for IV Tylenol 1 gram once and re-assess patient in 6-8 hours to see if she can tolerate PO. Will re-assess at that time.
[2021-10-22] MEDS: acetaminophen 1,000 MG/100 ML PIGGYBACK 400 MG IV (13:45)
[2021-10-22 23:26] LABS: Glucose Point of Care 153 mg/dL (70-110)
[2021-10-23] VITALS (9 sets, daily range): BP systolic 94–136; BP diastolic 47–76; PULSE 62–98; RESP 12–22; TEMP 36.5–36.8; O2SAT 87–95
[2021-10-23] MEDS: lactated ringers 1,000 ML 90 ML IV ×3 (00:15→23:43)
[2021-10-23] MEDS: ketorolac 30 mg/mL INJ IVP (01:45)
[2021-10-23] MEDS: enoxaparin 40 mg/0.4 mL Syringe SUBCUT (05:53)
[2021-10-23] MEDS: morphine 4 mg/mL SDV 1 mL 2 MG IVP ×3 (09:00→21:49)
[2021-10-23] MEDS: ondansetron 2 mg/ML SDV 2 mL 4 MG IVP (09:01)
[2021-10-23] MEDS: atenolol 50 mg Tablet PO (09:42)
[2021-10-23] MEDS: atorvastatin 40 mg Tablet 20 MG PO (09:45)
[2021-10-23] MEDS: citalopram 20 mg Tablet 40 MG PO (09:47)
[2021-10-23] MEDS: docusate sodium 100 mg Capsule PO ×2 (09:48→18:49)
[2021-10-23] MEDS: gabapentin 100 mg Capsule PO ×3 (09:49→21:24)
[2021-10-23] MEDS: fluticasone nasal spray 16gm Btl 1 SPRAY INTRANASAL (09:49)
[2021-10-23] MEDS: isosorbide mononitrate ER 30 mg Tablet PO (09:50)
[2021-10-23] MEDS: hydroCHLOROthiazide 25 mg Tablet 50 MG PO (09:50)
[2021-10-23] MEDS: oxybutynin 5 mg Tablet PO ×2 (09:55→21:24)
[2021-10-23] MEDS: lisinopril 20 mg Tablet 40 MG PO (09:55)
[2021-10-23] MEDS: pantoprazole DR 40 mg Tablet PO (09:56)
[2021-10-23] MEDS: potassium chloride ER 20 mEq Tablet PO ×2 (09:57→18:49)
[2021-10-23] MEDS: sulfaSALAzine 500 mg Tablet PO (09:58)
--- NOTE | 2021-10-23 10:39 | PM.PN ---
Subjective Subjective: POD 2 Patient awake this morning improving with regards to her headache. Denies any chest pain or shortness of breath. Physical therapy was not able to work with her yesterday due to her headache. Vitals/I&O/Wt Last Vital Signs Temp 97.7 F 10/23/21 07:26 Pulse 65 10/23/21 07:26 Resp 18 10/23/21 09:00 BP 125/72 10/23/21 07:26 Pulse Ox 93 10/23/21 07:26 10/22/21 10/23/21 10/23/21 22:59 06:59 14:59 Intake Total 1000 / 2163.5 Output Total 475 / 595 680 / 1275 Balance 525 / 1568.5 -680 / 888.5 -30 Physical Exam Narrative: Patient presents alert and oriented x3 with a good general appearance normal mood and affect. Normal coordination normal stability. Mild tenderness around the incisional site with the incision appear to be clean and dry. Hemovac drain present no signs of erythema or drainage. No signs of infection. Patient denies any fevers or chills. 4/5 motor strength both lower extremities with negative straight leg raise bilaterally. Calves are supple no medial thigh tenderness. Pulses are 1+ at the dorsalis pedis and posterior tibial region. Good capillary refill throughout normal sensation light touch both lower extremities. Urinary Catheter Management: Beal: Cath Placed During This Visit: yes Reason for Continuing Indwelling Catheter: Required Immobilization for Trauma or Surgery or Anesthesia Urinary Catheter Date of Insertion: 10/21/21 Urinary Catheter Time of Insertion: 11:10 Data : 10/16/21 14:00 10/16/21 14:00 A&P Assessment and plan (1) Status post lumbar spinal fusion: At this point we will discontinue the Hemovac drain and Beal catheter. Encourage physical therapy to work with mobilizing today. Encourage incentive spirometry for pulmonary toilet. Lower extremity weakness seems to be improving slowly. We will have social services manager involved for placement. Status: Acute Attestations Medical Necessity Statement*: defer to medical team Coding Level of Care Code Acute Development Team Lead for Chg Fwd Diagnoses Status post lumbar spinal fusion Z98.1
[2021-10-23] MEDS: acetaminophen 325 mg Tablet 650 MG PO (16:17)
[2021-10-24] VITALS (7 sets, daily range): BP systolic 135–160; BP diastolic 68–89; PULSE 67–77; RESP 15–18; TEMP 36.6–36.8; O2SAT 93–97
[2021-10-24] MEDS: acetaminophen 325 mg Tablet 650 MG PO ×4 (03:56→22:09)
[2021-10-24] MEDS: morphine 4 mg/mL SDV 1 mL 2 MG IVP ×2 (03:56→08:59)
[2021-10-24] MEDS: enoxaparin 40 mg/0.4 mL Syringe SUBCUT (05:51)
--- NOTE | 2021-10-24 08:05 | P.PN_ITS ---
Subjective Subjective: POD 3 He is alert but confused.Patient awake. States that her back pain is improving. Physical therapy had attempted to mobilize her yesterday but she was having another headache. Denies any shortness of breath or chest pain. Vitals/I&O/Wt Last Vital Signs Temp 97.9 F 10/24/21 04:00 Pulse 73 10/24/21 04:00 Resp 16 10/24/21 04:00 BP 156/89 10/24/21 04:00 Pulse Ox 93 10/24/21 04:00 10/23/21 10/24/21 10/24/21 22:59 06:59 14:59 Intake Total 100 / 1100 960 / 2060 Output Total 400 / 1030 Balance 100 / 470 560 / 1030 Physical Exam Narrative: Patient presents alert and oriented x3 with a good general appearance normal mood and affect.? Normal coordination normal stability.? Mild tenderness around the incisional site with the incision appear to be clean and dry.? Hemovac drain present no signs of erythema or drainage.? No signs of infection.? Patient denies any fevers or chills.? 4/5 motor strength both lower extremities with negative straight leg raise bilaterally.? Calves are supple no medial thigh tenderness.? Pulses are 1+ at the dorsalis pedis and posterior tibial region.? Good capillary refill throughout normal sensation light touch both lower extremities. Urinary Catheter Management: Beal: Cath Placed During This Visit: yes, but has since been removed by the nurse Reason for Continuing Indwelling Catheter: Decision to DC Catheter Urinary Catheter Date of Insertion: 10/21/21 Urinary Catheter Time of Insertion: 11:10 Date Urinary Catheter Removed: 10/23/21 Time Urinary Catheter Discontinued: 10:30 Data : 10/16/21 14:00 10/16/21 14:00 A&P Assessment and plan (1) Status post lumbar spinal fusion: Encourage her to continue mobilization with physical therapy. Continue incentive spirometry for pulmonary toilet. We will continue to work with social security specialist for placement. We will see her back in the office in 1 week's time for a wound check. 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
[2021-10-24] MEDS: atenolol 50 mg Tablet PO (08:58)
[2021-10-24] MEDS: atorvastatin 40 mg Tablet 20 MG PO (08:58)
[2021-10-24] MEDS: sulfaSALAzine 500 mg Tablet PO (08:58)
[2021-10-24] MEDS: citalopram 20 mg Tablet 40 MG PO (08:58)
[2021-10-24] MEDS: hydroCHLOROthiazide 25 mg Tablet 50 MG PO (08:58)
[2021-10-24] MEDS: gabapentin 100 mg Capsule PO ×3 (08:59→22:09)
[2021-10-24] MEDS: oxybutynin 5 mg Tablet PO ×2 (08:59→22:09)
[2021-10-24] MEDS: potassium chloride ER 20 mEq Tablet PO ×2 (08:59→18:16)
[2021-10-24] MEDS: pantoprazole DR 40 mg Tablet PO (08:59)
[2021-10-24] MEDS: docusate sodium 100 mg Capsule PO ×2 (08:59→18:16)
[2021-10-24] MEDS: isosorbide mononitrate ER 30 mg Tablet PO (08:59)
[2021-10-24] MEDS: lisinopril 20 mg Tablet 40 MG PO (08:59)
[2021-10-24] MEDS: lactated ringers 1,000 ML 90 ML IV ×2 (09:01→22:11)
[2021-10-24] MEDS: fluticasone nasal spray 16gm Btl 1 SPRAY INTRANASAL (09:04)
--- NOTE | 2021-10-24 10:26 | PC.CHAP ---
Pastoral Care Encounter/Spiritual Assessment Type of Contact [] Declined parts salesperson visit [] Patient/Family/Request visit [] Outpatient visit [] Follow-up visit [] Physician referral [] Code/Alert [x] Routine visit [] Staff referral [] Actively dying [] Patient sleeping [] Family support [] [] Out of room [] Palliative care [] [x] Receiving care in room [] Pre-surgical visit [] Trauma [] Long length of stay [] ICU visit [] Other: Relational/Emotional Strength [x] Patient feels connected with others/family/visitors/staff [] Distress [] Loneliness/isolation [] Abandonment Spirituality of Patient [x] Person of Teagan [] Attends Shinto of their Teagan [x] Believes in Prayer [] Reads Bible or Episcopal materials [] There are Spiritual issues to be addressed Stove Installer Interventions [x] Prayer [x] Active listening [x] Non-anxious presence [x] Spiritual/emotional support [] Crisis/trauma care [x] Spiritual counseling [] Bereavement support [] Provided bereavement packet [] Provided Bible/devotional materials [] Provided toy/stuffed animal, coloring book to patient or family member [] Provided Communion [] Anointing/[place] [] Salvation [x] Completed spiritual assessment [] Other: Impact on Illness or Injury [] Angry [] Fearful [x] Anxious [] Often cries [] Exhaustion [] Unable to work [] Unable to attend taoism [] Unable to walk/stand [] Unable to read [] Unable to drive [] Unable to eat/drink [] Unable to sleep [] Unable to be with family [] Patient intubated [] Other: Summary had a proceeduer in some paint negative feelings go home Time spent with patient 10 mins
[2021-10-24] MEDS: HYDROcodone-acetaminophen 5-325 mg Tablet 1 TAB PO (19:02)
[2021-10-25] VITALS: BP 146/75; PULSE 70; RESP 18; TEMP 36.9; O2SAT 93
[2021-10-25] MEDS: HYDROcodone-acetaminophen 5-325 mg Tablet 1 TAB PO ×5 (01:04→20:49)
[2021-10-25 04:00] VITALS: BP 139/75; PULSE 67; RESP 17; O2SAT 92
[2021-10-25] MEDS: enoxaparin 40 mg/0.4 mL Syringe SUBCUT (05:18)
--- NOTE | 2021-10-25 06:42 | P.PN_ITS ---
Subjective Subjective: POD 3 Patient resting comfortably. She was up with physical therapy yesterday. She is planned to go to a rehab facility. Vitals/I&O/Wt Last Vital Signs Temp 98.4 F 10/25/21 00:00 Pulse 67 10/25/21 04:00 Resp 17 10/25/21 04:00 BP 139/75 10/25/21 04:00 Pulse Ox 92 10/25/21 04:00 10/24/21 10/24/21 10/25/21 14:59 22:59 06:59 Intake Total 1577 / 1577 1000 / 2577 Output Total 1000 / 1000 420 / 1420 Balance 1577 / 1577 0 / 1577 -420 / 1157 Physical Exam Narrative: Patient presents alert and oriented x3 with a good general appearance normal mood and affect.? Normal coordination normal stability.? Mild tenderness around the incisional site with the incision appear to be clean and dry.? Hemovac drain present no signs of erythema or drainage.? No signs of infection.? Patient denies any fevers or chills.? 4/5 motor strength both lower extremities with negative straight leg raise bilaterally.? Weak with bilateral EHL L5 distribution. Calves are supple no medial thigh tenderness.? Pulses are 1+ at the dorsalis pedis and posterior tibial region.? Good capillary refill throughout normal sensation light touch both lower extremities. Urinary Catheter Management: Beal: Cath Placed During This Visit: yes, but has since been removed by the nurse Reason for Continuing Indwelling Catheter: Decision to DC Catheter Urinary Catheter Date of Insertion: 10/21/21 Urinary Catheter Time of Insertion: 11:10 Date Urinary Catheter Removed: 10/23/21 Time Urinary Catheter Discontinued: 10:30 Data : 10/16/21 14:00 10/16/21 14:00 A&P Assessment and plan (1) Status post lumbar spinal fusion: At this point we will continue physical therapy. Transfer to rehab facility today. We will see her back in the office in 1 week's time for a wound check. Status: Acute Attestations Medical Necessity Statement*: transfer today Coding Level of Care Code Acute Director Of Physical Education for Chg Fwd Diagnoses Status post lumbar spinal fusion Z98.1
[2021-10-25 07:20] VITALS: BP 142/78; PULSE 69; RESP 16; TEMP 36.7; O2SAT 92
--- NOTE | 2021-10-25 09:16 | PM.DCS ---
Discharge Providers Date of Admission: 10/21/21 13:39 Date of Discharge: October 25, 2021 Attending Provider at Admission: Cole Medina DO Attending Provider at Discharge: Cole Medina DO Primary Care Provider: Sathya Villalpando MD Diagnoses at Discharge Discharge Diagnosis (1) Status post lumbar spinal fusion: Status: Acute Reason for Visit Reason for Visit: idd, Spondylosis,spinal stenosis Hospital Course Hospital Course difficulty with ambulating and pain control will need custodial Physical Exam Urinary Catheter Management: Beal: Cath Placed During This Visit: yes, but has since been removed by the nurse Reason for Continuing Indwelling Catheter: Decision to DC Catheter Urinary Catheter Date of Insertion: 10/21/21 Urinary Catheter Time of Insertion: 11:10 Date Urinary Catheter Removed: 10/23/21 Time Urinary Catheter Discontinued: 10:30 Discharge Data Studies Completed and Pending Completed Studies During Hospitalization Category Date Time Status XR lumbar spine 2-3V* 85577 Routine Exams 10/21/21 Completed Radiology Impressions Lumbar Spine X-Ray 10/21/21 00:00 IMPRESSION: Intraoperative imaging during posterior lumbar fusion. Laboratory Results WBC 6.7 10^3/uL (4.0-10.0) 10/16/21 14:00 RBC 4.19 10^6/uL (4.1-5.3) 10/16/21 14:00 Hgb 11.7 g/dL (11.5-15.3) 10/16/21 14:00 Hct 35.1 % (37.0-47.0) L 10/16/21 14:00 MCV 83.8 fl (81-99) 10/16/21 14:00 MCH 27.9 pg (28.0-34.0) L 10/16/21 14:00 MCHC 33.3 g/dL (30.0-36.0) 10/16/21 14:00 RDW 12.2 % (12.1-15.1) 10/16/21 14:00 Plt Count 225 10^3/cmm (130-400) 10/16/21 14:00 MPV 9.5 fL (7.4-10.4) 10/16/21 14:00 Neut % (Auto) 59.8 % 10/16/21 14:00 Lymph % (Auto) 31.3 % 10/16/21 14:00 [place]lette % (Auto) 7.9 % 10/16/21 14:00 Eos % (Auto) 0.0 % 10/16/21 14:00 Baso % (Auto) 0.6 % 10/16/21 14:00 Neut # (Auto) 3.99 10^3/uL (1.8-7.7) 10/16/21 14:00 Lymph # (Auto) 2.1 10^3/uL (0.8-4.8) 10/16/21 14:00 [place] # (Auto) 0.5 10^3/uL (0.2-0.9) 10/16/21 14:00 Eos # (Auto) 0.0 10^3/uL (0.0-0.8) 10/16/21 14:00 Baso # (Auto) 0.0 10^3/uL (0.0-0.1) 10/16/21 14:00 Nucleated RBC % (auto) 0 % 10/16/21 14:00 Nucleated RBCs # 0.0 /100WBC 10/16/21 14:00 Sodium 131 mmol/L (136-145) L 10/16/21 14:00 Potassium 3.4 mmol/L (3.5-5.1) L 10/16/21 14:00 Chloride 93 mmol/L (98-107) L 10/16/21 14:00 Carbon Dioxide 27 mmol/L (22-29) 10/16/21 14:00 Anion Gap 14.4 (5-19) 10/16/21 14:00 BUN 14 mg/dL (6-20) 10/16/21 14:00 Creatinine 0.5 mg/dL (0.5-0.9) 10/16/21 14:00 GFR Calculation 126.3 mL/min (90-130) 10/16/21 14:00 Glucose 154 mg/dL (65-115) H 10/16/21 14:00 POC Glucose 153 mg/dL (70-110) H 10/22/21 23:23 Calculated Osmolality 276 mOsm/kg (285-295) L 10/16/21 14:00 Calcium 9.2 mg/dL (8.5-10.5) 10/16/21 14:00 Total Bilirubin 0.3 mg/dL (0.15-1.2) 10/16/21 14:00 AST 16 U/L (0-32) 10/16/21 14:00 ALT 15 U/L (0-33) 10/16/21 14:00 Alkaline Phosphatase 64 IU/L (35-105) 10/16/21 14:00 Total Protein 6.8 g/dL (6.6-8.7) 10/16/21 14:00 Albumin 4.2 g/dL (3.5-5.2) 10/16/21 14:00 Globulin 2.6 g/dL (1.3-4.6) 10/16/21 14:00 Blood Type A Positive 10/21/21 10:30 Rho(D) Type Positive 10/21/21 10:30 Antibody Screen Negative 10/21/21 10:30 Vitals Last Vital Signs Temp 98.1 F 10/25/21 07:20 Pulse 69 10/25/21 07:20 Resp 16 10/25/21 07:20 BP 142/78 10/25/21 07:20 Pulse Ox 92 10/25/21 07:20 Discharge Plan Discharge Patient Disposition: Xfer SNF Condition: Stable Prescriptions: Continued atenolol 50 mg tablet 50 mg PO DAILY 0RF omeprazole 40 mg capsule,delayed release(DR/EC) 40 mg PO DAILY 0RF fluticasone propionate 50 mcg/actuation spray,suspension 1 spray intranasal DAILY 0RF Rx Instructions: administer into each nostril hydrochlorothiazide 50 mg tablet 50 mg PO DAILY 0RF pravastatin 20 mg tablet 20 mg PO DAILY 0RF isosorbide mononitrate 30 mg tablet extended release 24 hr 30 mg PO DAILY 0RF hydrocodone-acetaminophen 10-325 mg tablet 1 tab PO Q6H PRN (Reason: Pain) 0RF lisinopril 40 mg tablet 40 mg PO DAILY 0RF glipizide 5 mg tablet 5 mg PO BEDTIME 0RF oxybutynin chloride 5 mg tablet 5 mg PO BID 0RF pseudoephedrine HCl 30 mg tablet 30 mg PO Q6H 0RF potassium chloride [Klor-Con M20] 20 mEq tablet,ER particles/crystals 20 meq PO BID 0RF sennosides [senna] 8.6 mg Tablet 8.6 mg PO DAILY PRN (Reason: Constipation) 0RF citalopram 40 mg tablet 40 mg PO DAILY 0RF gabapentin 100 mg capsule 100 mg PO TID 0RF Multivitamin 50 Plus Tablet 1 tab PO BEDTIME 0RF sulfasalazine 500 mg tablet 500 mg PO DAILY 0RF Rx Instructions: give with food (meal/snack) Discharge Orders: Discharge Order (Routine); Ordered 10/25/21 Ordered By: Reynaldo Trevizo Discharge Diet: Advance as tolerated Discharge Activity: Resume usual activity Activity Restrictions/Additional Instructions: Thank you for choosing [facility] for your care! The following is a list of instructions, from your provider, to follow upon your discharge to ensure you have the optimal recovery from your recent injury or surgery. Follow-up care is a dave part of your treatment and safety. Be sure to make and go to all appointments and call your doctor if you are having problems. If you do not already have a follow-up appointment made, call Dr. Medina's] office in the next 1-3 days to make follow up appointment for 1 weeks at [phone]. It is also a good idea to know your test results and keep a list of the medicines you take. Medications will be prescribed for you at your provider's discretion. These medications are to be used as instructed; if they are taken more often that prescribed they will not be refilled early and in most cases will not be refilled at all. > When a refill is needed, you should contact [facility] 2-3 business days before your prescription runs out. Medications will NOT be refilled by distribution system operator providers after hours! > Many pain medications contain Tylenol (Acetaminophen). Do not consume more than 4,000 mg of Tylenol per day in total with any combination of medications. > Pain medications can cause constipation. Please use an over the counter stool softener as directed, while taking pain medications. Consult your local pharmacist with questions or recommendations on stool softeners. If constipation persists, contact our office or your primary care provider. > While under our care, you are not to receive pain medications or other controlled substances from any other provider unless our office is notified and approves. Any attempts to do so will result in refusal to prescribe any further pain medications and possible dismissal from our practice. ? Walking is essential for the healing process after surgery. We would like you to slowly advance your walking. This should be done on relatively flat clear ground (inside or out) or can be done on a treadmill. Remember this goal does not have to happen all at once, slowly increase your distance and duration. This can be broken into more more than one walk per day as tolerated. Patients who walk as directed after surgery rarely require Physical Therapy. In the unlikely event this issue arises your provider will direct hospital staff to make the appropriate arrangements. ? No lifting over 5 pounds {a gallon of milk) or bending/twisting until further notice. Each of these activities places an unnecessary amount of stress onto the body and can impede the delicate healing process. > Instead of bending at the waist, keep your back straight and bend at the knees. > Instead of twisting your torso, keep your back straight and turn your entire body with your feet. ? You may sleep in any position which makes you comfortable. Many patients find comfort sleeping in a reclining chair. It is not abnormal to have difficulty sleeping for the first several weeks following your surgery. We recommend trying Benadry! or Tylenol PM as directed to help with your sleeping difficulties. Both medications are over the counter and available without prescription. ? NO SMOKING!!! Smoking dramatically increases the probability of developing postoperative wound infections. ? Common complaints after lumbar and/or thoracic spine surgery include, but are not limited to: numbness and/or tingling in the legs, pain around the incision and surrounding tissues, muscle spasms, or stiffness of the middle to low back. Contact our office if these symptoms persist or if an acute change occurs. ? No driving for the first 3-5days, and not while taking narcotics until seen at your follow-up appointment and cleared. There are no restrictions for riding on short trips, however if you take a longer trip, arrangements should be made to make regular stops to get out of the vehicle and stretch . ? Swelling is an unfortunate event that will take place with any surgery and is the primary source of your postoperative discomfort. While walking and regular approved activities helps control inflammation, there are additional steps you can take to minimize swelling. > Place ice over the surgical site and surrounding tissue for twenty minutes, followed by applying a low/medium heat (heating pad) for an additional twenty minutes every 1-2 hours as needed for painrelief. > You may use of over the counter anti-inflammatory medications (Ibuprofen, Motrin, Aleve, Advil, etc) as directed on the package label. These types of medicines will significantly reduce the amount of discomfort you experience after surgery from swelling. It should be noted that if you have and allergy to any of these medications, or a history of ulcers or kidney disease you should consult you primary care provider prior to starting these medications. Discharge Attestations Time Spent in Discharge Care*: less than 30 min Quality Metrics Clinical Quality Measures [ No reported AMI, CVA or VTE this stay] Coding Level of Care Code Acute Chg FW DC note Diagnoses Status post lumbar spinal fusion Z98.1
[2021-10-25] MEDS: docusate sodium 100 mg Capsule PO ×2 (09:26→17:16)
[2021-10-25] MEDS: lisinopril 20 mg Tablet 40 MG PO (09:26)
[2021-10-25] MEDS: citalopram 20 mg Tablet 40 MG PO (09:27)
[2021-10-25] MEDS: sulfaSALAzine 500 mg Tablet PO (09:27)
[2021-10-25] MEDS: hydroCHLOROthiazide 25 mg Tablet 50 MG PO (09:27)
[2021-10-25] MEDS: pantoprazole DR 40 mg Tablet PO (09:27)
[2021-10-25] MEDS: atenolol 50 mg Tablet PO (09:27)
[2021-10-25] MEDS: isosorbide mononitrate ER 30 mg Tablet PO (09:28)
[2021-10-25] MEDS: potassium chloride ER 20 mEq Tablet PO ×2 (09:28→17:16)
[2021-10-25] MEDS: atorvastatin 40 mg Tablet 20 MG PO (09:29)
[2021-10-25] MEDS: oxybutynin 5 mg Tablet PO ×2 (09:35→20:49)
[2021-10-25] MEDS: fluticasone nasal spray 16gm Btl 1 SPRAY INTRANASAL (09:36)
[2021-10-25] MEDS: gabapentin 100 mg Capsule PO ×3 (09:45→20:49)
[2021-10-25 11:21] VITALS: BP 149/71; PULSE 68; RESP 17; TEMP 36.7; O2SAT 95
[2021-10-25 15:16] VITALS: BP 127/66; PULSE 69; RESP 16; TEMP 36.8; O2SAT 91
[2021-10-25] MEDS: sennosides 8.6 mg Tablet PO (17:19)
[2021-10-25 20:00] VITALS: BP 156/68; PULSE 74; RESP 18; TEMP 37.4; O2SAT 94
[2021-10-26] VITALS: BP 132/62; PULSE 70; RESP 17; TEMP 36.7; O2SAT 94
[2021-10-26 04:00] VITALS: BP 166/71; PULSE 67; RESP 18; TEMP 36.4; O2SAT 95
[2021-10-26] MEDS: enoxaparin 40 mg/0.4 mL Syringe SUBCUT (05:08)
[2021-10-26] MEDS: HYDROcodone-acetaminophen 5-325 mg Tablet 1 TAB PO ×4 (05:08→20:55)
[2021-10-26 08:00] VITALS: BP 152/84; PULSE 67; RESP 18; TEMP 36.7; O2SAT 94
[2021-10-26] MEDS: docusate sodium 100 mg Capsule PO (08:13)
[2021-10-26] MEDS: hydroCHLOROthiazide 25 mg Tablet 50 MG PO (08:13)
[2021-10-26] MEDS: isosorbide mononitrate ER 30 mg Tablet PO (08:13)
[2021-10-26] MEDS: potassium chloride ER 20 mEq Tablet PO ×2 (08:13→17:38)
[2021-10-26] MEDS: citalopram 20 mg Tablet 40 MG PO (08:13)
[2021-10-26] MEDS: pantoprazole DR 40 mg Tablet PO (08:13)
[2021-10-26] MEDS: oxybutynin 5 mg Tablet PO ×2 (08:13→20:55)
[2021-10-26] MEDS: lisinopril 20 mg Tablet 40 MG PO (08:13)
[2021-10-26] MEDS: gabapentin 100 mg Capsule PO ×3 (08:13→20:55)
[2021-10-26] MEDS: atenolol 50 mg Tablet PO (08:13)
[2021-10-26] MEDS: sulfaSALAzine 500 mg Tablet PO (08:13)
[2021-10-26] MEDS: atorvastatin 40 mg Tablet 20 MG PO (08:14)
[2021-10-26] MEDS: fluticasone nasal spray 16gm Btl 1 SPRAY INTRANASAL (08:14)
[2021-10-26 12:00] VITALS: BP 118/66; PULSE 71; RESP 17; TEMP 36.5; O2SAT 96
[2021-10-26 16:00] VITALS: BP 131/80; PULSE 69; RESP 17; TEMP 36.8; O2SAT 95
--- NOTE | 2021-10-26 18:05 | PC.NURSE ---
SHIFT SUMMARY PATIENT HAS DONE WELL TODAY. PAIN CONTROLLED. PATIENT SAT UP IN THE CHAIR FOR AWHILE TODAY. GOOD URINE OUTPUT. PATIENT HAD A BOWEL MOVEMENT TODAY. SURGICAL INCISION DRESSING C/D/I. PATIENT CURRENTLY RESTING IN BED WATCHING TV. NO COMPLAINTS AT THIS TIME.
[2021-10-26 20:00] VITALS: BP 131/78; PULSE 70; RESP 17; TEMP 36.6; O2SAT 97
[2021-10-26] MEDS: acetaminophen 325 mg Tablet 650 MG PO (22:53)
[2021-10-27] VITALS: BP 143/82; PULSE 70; RESP 17; TEMP 36.6; O2SAT 95
[2021-10-27 04:00] VITALS: BP 136/70; PULSE 66; TEMP 36.6; O2SAT 92
[2021-10-27] MEDS: enoxaparin 40 mg/0.4 mL Syringe SUBCUT (06:26)
[2021-10-27 08:00] VITALS: BP 168/92; PULSE 68; RESP 17; TEMP 36.4; O2SAT 96
[2021-10-27] MEDS: hydroCHLOROthiazide 25 mg Tablet 50 MG PO (08:17)
[2021-10-27] MEDS: HYDROcodone-acetaminophen 5-325 mg Tablet 1 TAB PO ×4 (08:17→22:59)
[2021-10-27] MEDS: isosorbide mononitrate ER 30 mg Tablet PO (08:18)
[2021-10-27] MEDS: potassium chloride ER 20 mEq Tablet PO ×2 (08:18→17:57)
[2021-10-27] MEDS: sulfaSALAzine 500 mg Tablet PO (08:18)
[2021-10-27] MEDS: pantoprazole DR 40 mg Tablet PO (08:19)
[2021-10-27] MEDS: gabapentin 100 mg Capsule PO ×3 (08:19→20:43)
[2021-10-27] MEDS: atenolol 50 mg Tablet PO (08:19)
[2021-10-27] MEDS: docusate sodium 100 mg Capsule PO ×2 (08:19→17:57)
[2021-10-27] MEDS: lisinopril 20 mg Tablet 40 MG PO (08:19)
[2021-10-27] MEDS: citalopram 20 mg Tablet 40 MG PO (08:19)
[2021-10-27] MEDS: oxybutynin 5 mg Tablet PO ×2 (08:19→20:43)
[2021-10-27] MEDS: atorvastatin 40 mg Tablet 20 MG PO (08:19)
[2021-10-27] MEDS: fluticasone nasal spray 16gm Btl 1 SPRAY INTRANASAL (08:21)
[2021-10-27 12:00] VITALS: BP 147/79; PULSE 67; RESP 18; TEMP 36.4; O2SAT 95
--- NOTE | 2021-10-27 14:40 | PM.PN ---
Subjective Subjective: pain controlled still having wekness in legs; pt stated since thrsday when she gets up her bladder empties wasnt as bad today Vitals/I&O/Wt Last Vital Signs Temp 97.6 F 10/27/21 12:00 Pulse 67 10/27/21 12:00 Resp 18 10/27/21 12:00 BP 147/79 10/27/21 12:00 Pulse Ox 95 10/27/21 12:00 10/26/21 10/27/21 10/27/21 22:59 06:59 14:59 Intake Total 280 / 640 50 / 690 480 / 480 Output Total 1200 / 2200 600 / 600 Balance -920 / -1560 50 / -1510 -120 / -120 Physical Exam Narrative: weak plantar and dorsiflexion of ankles Urinary Catheter Management: Beal: Cath Placed During This Visit: yes, but has since been removed by the nurse Reason for Continuing Indwelling Catheter: Decision to DC Catheter Urinary Catheter Date of Insertion: 10/21/21 Urinary Catheter Time of Insertion: 11:10 Date Urinary Catheter Removed: 10/23/21 Time Urinary Catheter Discontinued: 10:30 Data : 10/16/21 14:00 10/16/21 14:00 A&P Assessment and plan (1) Status post lumbar spinal fusion: d/c planning foot drop splints alternate every 2 hrs Status: Acute Attestations Medical Necessity Statement*: ok to d/c awaiting insurance approval for [facility] Coding Level of Care Code Acute Regional Branch Manager for Chg Fwd Diagnoses Status post lumbar spinal fusion Z98.1
[2021-10-27 16:24] VITALS: BP 163/79; PULSE 63; RESP 18; TEMP 36.7; O2SAT 95
[2021-10-27 20:00] VITALS: BP 136/82; PULSE 71; RESP 18; TEMP 36.6; O2SAT 94
[2021-10-28] VITALS (7 sets, daily range): BP systolic 116–167; BP diastolic 70–87; PULSE 63–72; RESP 16–20; TEMP 36.4–36.8; O2SAT 93–97
[2021-10-28] MEDS: enoxaparin 40 mg/0.4 mL Syringe SUBCUT (06:19)
--- NOTE | 2021-10-28 08:20 | P.PN_ITS ---
Subjective Subjective: POD 6 Patient up in the chair having a.m. meal. Denies any headaches mild back pain numbness in both legs. Physical therapy is working with her currently. Vitals/I&O/Wt Last Vital Signs Temp 97.8 F 10/28/21 04:00 Pulse 63 10/28/21 04:00 Resp 16 10/28/21 04:00 BP 167/77 10/28/21 04:00 Pulse Ox 93 10/28/21 04:00 10/27/21 10/28/21 10/28/21 22:59 06:59 14:59 Intake Total 360 / 840 Output Total 600 / 1200 Balance 360 / 240 -600 / -360 Physical Exam Narrative: Patient presents alert and oriented x3 with a good general appearance normal mood and affect. Normal coordination normal stability. Mild tenderness around the incisional site with the incision appear to be healing nicely. No signs of erythema or drainage. No signs of infection. Patient denies any fevers or chills. 4/5 motor strength both lower extremities with negative straight leg raise bilaterally. Calves are supple no medial thigh tenderness. Pulses are 2+ at the dorsalis pedis and posterior tibial region. Good capillary refill throughout with decreasaed sensation light touch both lower extremities. Urinary Catheter Management: Beal: Cath Placed During This Visit: yes, but has since been removed by the nurse Reason for Continuing Indwelling Catheter: Decision to DC Catheter Urinary Catheter Date of Insertion: 10/21/21 Urinary Catheter Time of Insertion: 11:10 Date Urinary Catheter Removed: 10/23/21 Time Urinary Catheter Discontinued: 10:30 Data : 10/16/21 14:00 10/16/21 14:00 A&P Assessment and plan (1) Status post lumbar spinal fusion: Continue to mobilize with physical therapy. Okay to transfer to rehab facility when bed available. Status: Acute (2) Spondylolisthesis at L4-L5 level: Status: Acute Attestations Medical Necessity Statement*: transfer when bed available Coding Level of Care Code Acute Machining Manager for Chg Fwd Diagnoses Status post lumbar spinal fusion Z98.1 Spondylolisthesis at L4-L5 level M43.16
[2021-10-28] MEDS: sulfaSALAzine 500 mg Tablet PO (08:43)
[2021-10-28] MEDS: gabapentin 100 mg Capsule PO ×3 (08:44→20:17)
[2021-10-28] MEDS: lisinopril 20 mg Tablet 40 MG PO (08:44)
[2021-10-28] MEDS: hydroCHLOROthiazide 25 mg Tablet 50 MG PO (08:44)
[2021-10-28] MEDS: HYDROcodone-acetaminophen 5-325 mg Tablet 1 TAB PO ×3 (08:44→20:17)
[2021-10-28] MEDS: atorvastatin 40 mg Tablet 20 MG PO (08:44)
[2021-10-28] MEDS: pantoprazole DR 40 mg Tablet PO (08:45)
[2021-10-28] MEDS: docusate sodium 100 mg Capsule PO ×2 (08:45→18:22)
[2021-10-28] MEDS: isosorbide mononitrate ER 30 mg Tablet PO (08:45)
[2021-10-28] MEDS: potassium chloride ER 20 mEq Tablet PO ×2 (08:45→18:22)
[2021-10-28] MEDS: atenolol 50 mg Tablet PO (08:45)
[2021-10-28] MEDS: citalopram 20 mg Tablet 40 MG PO (08:45)
[2021-10-28] MEDS: oxybutynin 5 mg Tablet PO ×2 (08:45→20:17)
[2021-10-28] MEDS: fluticasone nasal spray 16gm Btl 1 SPRAY INTRANASAL (08:46)
--- NOTE | 2021-10-28 09:54 | P.PN_ITS ---
Subjective Subjective: pt sitting up in chair Vitals/I&O/Wt Last Vital Signs Temp 97.5 F L 10/28/21 08:00 Pulse 72 10/28/21 08:00 Resp 18 10/28/21 08:00 BP 151/84 10/28/21 08:00 Pulse Ox 97 10/28/21 08:00 10/27/21 10/28/21 10/28/21 22:59 06:59 14:59 Intake Total 360 / 840 360 / 360 Output Total 600 / 1200 Balance 360 / 240 -600 / -360 360 / 360 Physical Exam Narrative: pain improving Urinary Catheter Management: Beal: Cath Placed During This Visit: yes, but has since been removed by the nurse Reason for Continuing Indwelling Catheter: Decision to DC Catheter Urinary Catheter Date of Insertion: 10/21/21 Urinary Catheter Time of Insertion: 11:10 Date Urinary Catheter Removed: 10/23/21 Time Urinary Catheter Discontinued: 10:30 Data : 10/16/21 14:00 10/16/21 14:00 A&P Assessment and plan (1) Status post lumbar spinal fusion: pt to d/c to retirement Pt was supposed to d/c thursday. I thought she did that is why she was not seen thursday. I was notified shunday she was still here. 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
[2021-10-28 20:19] LABS: Glucose Point of Care 184 mg/dL (70-110)
[2021-10-28] MEDS: sennosides 8.6 mg Tablet PO (20:24)
[2021-10-29] MEDS: HYDROcodone-acetaminophen 5-325 mg Tablet 1 TAB PO ×4 (01:37→21:48)
[2021-10-29 04:00] VITALS: BP 164/65; PULSE 68; RESP 18; O2SAT 96
[2021-10-29] MEDS: enoxaparin 40 mg/0.4 mL Syringe SUBCUT (06:05)
[2021-10-29 08:00] VITALS: BP 149/75; PULSE 65; RESP 18; TEMP 36.4; O2SAT 96
--- NOTE | 2021-10-29 08:13 | P.PN_ITS ---
Subjective Subjective: Patient sitting up in the chair. Patient is ready for a change she is tired of sitting in her current room. She states the back and leg pain is improving. Vitals/I&O/Wt Last Vital Signs Temp 97.9 F 10/28/21 23:30 Pulse 68 10/29/21 04:00 Resp 18 10/29/21 04:00 BP 164/65 10/29/21 04:00 Pulse Ox 96 10/29/21 04:00 10/28/21 10/29/21 10/29/21 22:59 06:59 14:59 Intake Total 240 / 840 Output Total 800 / 800 1800 / 2600 Balance -560 / 40 -1800 / -1760 Physical Exam Narrative: Alert and orient x3 she has good general appearance normal normal affect. Leg strength improving. Feet are warm good cap refill moves all digits. Urinary Catheter Management: Beal: Cath Placed During This Visit: yes, but has since been removed by the nurse Reason for Continuing Indwelling Catheter: Decision to DC Catheter Urinary Catheter Date of Insertion: 10/21/21 Urinary Catheter Time of Insertion: 11:10 Date Urinary Catheter Removed: 10/23/21 Time Urinary Catheter Discontinued: 10:30 Data : 10/16/21 14:00 10/16/21 14:00 A&P Assessment and plan (1) Status post lumbar spinal fusion: Continue working with physical therapy. Transfer when bed available to rehab facility. We will see her back in the office in 2 weeks time for wound follow- up. 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
[2021-10-29] MEDS: oxybutynin 5 mg Tablet PO ×2 (10:13→21:48)
[2021-10-29] MEDS: hydroCHLOROthiazide 25 mg Tablet 50 MG PO (10:13)
[2021-10-29] MEDS: sulfaSALAzine 500 mg Tablet PO (10:13)
[2021-10-29] MEDS: citalopram 20 mg Tablet 40 MG PO (10:13)
[2021-10-29] MEDS: potassium chloride ER 20 mEq Tablet PO ×2 (10:13→17:56)
[2021-10-29] MEDS: isosorbide mononitrate ER 30 mg Tablet PO (10:14)
[2021-10-29] MEDS: docusate sodium 100 mg Capsule PO ×2 (10:14→17:56)
[2021-10-29] MEDS: pantoprazole DR 40 mg Tablet PO (10:14)
[2021-10-29] MEDS: lisinopril 20 mg Tablet 40 MG PO (10:14)
[2021-10-29] MEDS: gabapentin 100 mg Capsule PO ×3 (10:14→21:48)
[2021-10-29] MEDS: atenolol 50 mg Tablet PO (10:14)
[2021-10-29] MEDS: fluticasone nasal spray 16gm Btl 1 SPRAY INTRANASAL (10:15)
[2021-10-29] MEDS: atorvastatin 40 mg Tablet 20 MG PO (10:15)
[2021-10-29 11:38] LABS: Glucose Point of Care 157 mg/dL (70-110)
[2021-10-29 12:00] VITALS: BP 130/71; PULSE 63; RESP 18; TEMP 36.5; O2SAT 98
[2021-10-29 16:00] VITALS: BP 136/70; PULSE 63; RESP 18; TEMP 36.7; O2SAT 95
[2021-10-29 18:00] LABS: Glucose Point of Care 134 mg/dL (70-110)
[2021-10-29 20:00] VITALS: BP 143/84; PULSE 66; RESP 17; TEMP 36.6; O2SAT 99
[2021-10-29 21:02] LABS: Glucose Point of Care 145 mg/dL (70-110)
[2021-10-29 23:56] VITALS: BP 131/69; PULSE 70; RESP 15; TEMP 36.7; O2SAT 96
[2021-10-30 03:41] VITALS: BP 155/58; PULSE 81; RESP 16; TEMP 36.6; O2SAT 96
[2021-10-30] MEDS: HYDROcodone-acetaminophen 5-325 mg Tablet 1 TAB PO ×4 (03:43→20:08)
[2021-10-30] MEDS: enoxaparin 40 mg/0.4 mL Syringe SUBCUT (05:38)
[2021-10-30 06:29] LABS: Glucose Point of Care 135 mg/dL (70-110)
--- NOTE | 2021-10-30 07:06 | P.PN_ITS ---
Subjective Subjective: POD 7 Patient resting comfortably. Denies any changes from yesterday. Continues to be involved with physical therapy. Vitals/I&O/Wt Last Vital Signs Temp 97.8 F 10/30/21 03:41 Pulse 81 10/30/21 03:41 Resp 16 10/30/21 03:41 BP 155/58 10/30/21 03:41 Pulse Ox 96 10/30/21 03:41 10/29/21 10/30/21 10/30/21 22:59 06:59 14:59 Intake Total 360 / 720 120 / 840 Output Total 900 / 1300 550 / 1850 Balance -540 / -580 -430 / -1010 Physical Exam Narrative: Patient presents alert and oriented x3 with a good general appearance normal mood and affect.? Normal coordination normal stability.? Mild tenderness around the incisional site with the incision appear to be healing nicely.? No signs of erythema or drainage.? No signs of infection.? Patient denies any fevers or chills.? 4/5 motor strength both lower extremities with negative straight leg raise bilaterally.? Calves are supple no medial thigh tenderness.? Pulses are 2+ at the dorsalis pedis and posterior tibial region.? Good capillary refill throughout? with decreased sensation light touch both lowe r extremities. Urinary Catheter Management: Beal: Cath Placed During This Visit: yes, but has since been removed by the nurse Reason for Continuing Indwelling Catheter: Decision to DC Catheter Urinary Catheter Date of Insertion: 10/21/21 Urinary Catheter Time of Insertion: 11:10 Date Urinary Catheter Removed: 10/23/21 Time Urinary Catheter Discontinued: 10:30 Data : 10/16/21 14:00 10/16/21 14:00 A&P Assessment and plan (1) Status post lumbar spinal fusion: Continue physical therapy. Continue incentive spirometer for pulmonary toilet. Awaiting placement at a rehab facility. Status: Acute Attestations Medical Necessity Statement*: awaiting insurance approval for placement rehab. Coding Level of Care Code Acute [facility] Owner for [facility] Diagnoses Status post lumbar spinal fusion Z98.1
[2021-10-30 08:00] VITALS: BP 133/82; PULSE 62; RESP 12; O2SAT 96
[2021-10-30] MEDS: docusate sodium 100 mg Capsule PO ×2 (08:19→17:30)
[2021-10-30] MEDS: atenolol 50 mg Tablet PO (08:19)
[2021-10-30] MEDS: gabapentin 100 mg Capsule PO ×3 (08:19→20:08)
[2021-10-30] MEDS: atorvastatin 40 mg Tablet 20 MG PO (08:19)
[2021-10-30] MEDS: hydroCHLOROthiazide 25 mg Tablet 50 MG PO (08:19)
[2021-10-30] MEDS: fluticasone nasal spray 16gm Btl 1 SPRAY INTRANASAL (08:19)
[2021-10-30] MEDS: citalopram 20 mg Tablet 40 MG PO (08:19)
[2021-10-30] MEDS: oxybutynin 5 mg Tablet PO ×2 (08:20→20:08)
[2021-10-30] MEDS: pantoprazole DR 40 mg Tablet PO (08:20)
[2021-10-30] MEDS: isosorbide mononitrate ER 30 mg Tablet PO (08:20)
[2021-10-30] MEDS: potassium chloride ER 20 mEq Tablet PO ×2 (08:20→17:30)
[2021-10-30] MEDS: sulfaSALAzine 500 mg Tablet PO (08:20)
[2021-10-30] MEDS: lisinopril 20 mg Tablet 40 MG PO (08:20)
[2021-10-30] MEDS: bisacodyl 5 mg Tablet 10 MG PO (11:44)
[2021-10-30 12:00] VITALS: BP 132/72; PULSE 54; RESP 14; O2SAT 97
[2021-10-30 12:38] LABS: SARS Covid-2 Antigen Negative (Negative)
[2021-10-30 16:00] VITALS: BP 112/71; PULSE 82; RESP 16; TEMP 36.6; O2SAT 96
[2021-10-30 17:59] LABS: Glucose Point of Care 171 mg/dL (70-110)
[2021-10-30 20:00] VITALS: BP 122/56; PULSE 67; RESP 18; TEMP 36.7; O2SAT 96
[2021-10-30] MEDS: bisacodyl 10 mg Supp PR (20:08)
[2021-10-30 20:55] LABS: Glucose Point of Care 161 mg/dL (70-110)
[2021-10-31] VITALS: BP 133/70; PULSE 65; RESP 20; TEMP 37; O2SAT 98
[2021-10-31] MEDS: HYDROcodone-acetaminophen 5-325 mg Tablet 1 TAB PO ×2 (00:21→09:47)
[2021-10-31] MEDS: cyclobenzaprine 10 mg Tablet 5 MG PO (00:21)
[2021-10-31 04:00] VITALS: BP 156/77; PULSE 66; RESP 18; TEMP 37; O2SAT 96
[2021-10-31] MEDS: enoxaparin 40 mg/0.4 mL Syringe SUBCUT (05:24)
[2021-10-31 06:42] LABS: Glucose Point of Care 126 mg/dL (70-110)
[2021-10-31] MEDS: potassium chloride ER 20 mEq Tablet PO (07:32)
[2021-10-31] MEDS: gabapentin 100 mg Capsule PO (07:32)
[2021-10-31] MEDS: atorvastatin 40 mg Tablet 20 MG PO (07:32)
[2021-10-31] MEDS: oxybutynin 5 mg Tablet PO (07:32)
[2021-10-31] MEDS: atenolol 50 mg Tablet PO (07:32)
[2021-10-31] MEDS: isosorbide mononitrate ER 30 mg Tablet PO (07:33)
[2021-10-31] MEDS: lisinopril 20 mg Tablet 40 MG PO (07:33)
[2021-10-31] MEDS: pantoprazole DR 40 mg Tablet PO (07:33)
[2021-10-31] MEDS: hydroCHLOROthiazide 25 mg Tablet 50 MG PO (07:33)
[2021-10-31] MEDS: fluticasone nasal spray 16gm Btl 1 SPRAY INTRANASAL (07:33)
[2021-10-31] MEDS: sulfaSALAzine 500 mg Tablet PO (07:33)
[2021-10-31] MEDS: docusate sodium 100 mg Capsule PO (07:33)
[2021-10-31] MEDS: citalopram 20 mg Tablet 40 MG PO (07:33)
--- NOTE | 2021-10-31 07:45 | P.PN_ITS ---
Subjective Subjective: POD 8 Patient up in the chair in good spirits this morning anxious to go to rehab facility to continue with physical therapy. States her leg pain is much improved feels like her strength is coming back and her legs. Reports improvement of the numbness and tingling in her feet. Denies any chest pain, shortness of breath, headaches. Vitals/I&O/Wt Last Vital Signs Temp 98.6 F 10/31/21 04:00 Pulse 66 10/31/21 04:00 Resp 18 10/31/21 04:00 BP 156/77 10/31/21 04:00 Pulse Ox 96 10/31/21 04:00 10/30/21 10/31/21 10/31/21 22:59 06:59 14:59 Intake Total 240 / 920 1840 / 2760 Output Total 1999 1500 / 3500 Balance -1760 / -1080 340 / -740 Physical Exam Narrative: Good strength in both lower extremities. Feet are warm good cap refill incisions clean and dry. Urinary Catheter Management: Beal: Cath Placed During This Visit: yes, but has since been removed by the nurse Reason for Continuing Indwelling Catheter: Decision to DC Catheter Urinary Catheter Date of Insertion: 10/21/21 Urinary Catheter Time of Insertion: 11:10 Date Urinary Catheter Removed: 10/23/21 Time Urinary Catheter Discontinued: 10:30 Data : 10/16/21 14:00 10/16/21 14:00 A&P Assessment and plan (1) Status post lumbar spinal fusion: Transfer to rehab facility today. We will see her back in the office in 2 weeks time for a wound check continue dressing changes as needed at the facility with Silverlon dressing. Continue physical therapy for mobilization and strength training. No bending lifting or twisting. 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
[2021-10-31 07:58] VITALS: BP 180/77; PULSE 64; RESP 13; TEMP 36.6; O2SAT 97
--- NOTE | 2021-10-31 08:54 | PC.NURSE ---
Report called to facility at this time. BRIGITTE Hinkle voiced appreciation. Patient updated of report being called.
[2021-10-31 10:26] VITALS: BP 180/77; PULSE 64; RESP 13; TEMP 36.6; O2SAT 97
--- NOTE | 2021-11-04 06:54 | PM.DCS ---
Discharge Providers Date of Admission: 10/21/21 13:39 Date of Discharge: October 31, 2021 Attending Provider at Admission: Cole Medina DO Attending Provider at Discharge: Cole Medina DO Primary Care Provider: Sathya Villalpando MD Diagnoses at Discharge Discharge Diagnosis (1) Status post lumbar spinal fusion: Status: Acute Reason for Visit Reason for Visit: idd, Spondylosis,spinal stenosis Hospital Course Hospital Course difficulty with ambulating and pain control will need [facility] Physical Exam Urinary Catheter Management: Beal: Cath Placed During This Visit: yes, but has since been removed by the nurse Reason for Continuing Indwelling Catheter: Decision to DC Catheter Urinary Catheter Date of Insertion: 10/21/21 Urinary Catheter Time of Insertion: 11:10 Date Urinary Catheter Removed: 10/23/21 Time Urinary Catheter Discontinued: 10:30 Discharge Data Studies Completed and Pending Completed Studies During Hospitalization Category Date Time Status XR lumbar spine 2-3V* 11179 Routine Exams 10/21/21 Completed Radiology Impressions Lumbar Spine X-Ray 10/21/21 00:00 IMPRESSION: Intraoperative imaging during posterior lumbar fusion. Laboratory Results WBC 6.7 10^3/uL (4.0-10.0) 10/16/21 14:00 RBC 4.19 10^6/uL (4.1-5.3) 10/16/21 14:00 Hgb 11.7 g/dL (11.5-15.3) 10/16/21 14:00 Hct 35.1 % (37.0-47.0) L 10/16/21 14:00 MCV 83.8 fl (81-99) 10/16/21 14:00 MCH 27.9 pg (28.0-34.0) L 10/16/21 14:00 MCHC 33.3 g/dL (30.0-36.0) 10/16/21 14:00 RDW 12.2 % (12.1-15.1) 10/16/21 14:00 Plt Count 225 10^3/cmm (130-400) 10/16/21 14:00 MPV 9.5 fL (7.4-10.4) 10/16/21 14:00 Neut % (Auto) 59.8 % 10/16/21 14:00 Lymph % (Auto) 31.3 % 10/16/21 14:00 Graves % (Auto) 7.9 % 10/16/21 14:00 Eos % (Auto) 0.0 % 10/16/21 14:00 Baso % (Auto) 0.6 % 10/16/21 14:00 Neut # (Auto) 3.99 10^3/uL (1.8-7.7) 10/16/21 14:00 Lymph # (Auto) 2.1 10^3/uL (0.8-4.8) 10/16/21 14:00 Graves # (Auto) 0.5 10^3/uL (0.2-0.9) 10/16/21 14:00 Eos # (Auto) 0.0 10^3/uL (0.0-0.8) 10/16/21 14:00 Baso # (Auto) 0.0 10^3/uL (0.0-0.1) 10/16/21 14:00 Nucleated RBC % (auto) 0 % 10/16/21 14:00 Nucleated RBCs # 0.0 /100WBC 10/16/21 14:00 Sodium 131 mmol/L (136-145) L 10/16/21 14:00 Potassium 3.4 mmol/L (3.5-5.1) L 10/16/21 14:00 Chloride 93 mmol/L (98-107) L 10/16/21 14:00 Carbon Dioxide 27 mmol/L (22-29) 10/16/21 14:00 Anion Gap 14.4 (5-19) 10/16/21 14:00 BUN 14 mg/dL (6-20) 10/16/21 14:00 Creatinine 0.5 mg/dL (0.5-0.9) 10/16/21 14:00 GFR Calculation 126.3 mL/min (90-130) 10/16/21 14:00 Glucose 154 mg/dL (65-115) H 10/16/21 14:00 POC Glucose 126 mg/dL (70-110) H 10/31/21 06:31 Calculated Osmolality 276 mOsm/kg (285-295) L 10/16/21 14:00 Calcium 9.2 mg/dL (8.5-10.5) 10/16/21 14:00 Total Bilirubin 0.3 mg/dL (0.15-1.2) 10/16/21 14:00 AST 16 U/L (0-32) 10/16/21 14:00 ALT 15 U/L (0-33) 10/16/21 14:00 Alkaline Phosphatase 64 IU/L (35-105) 10/16/21 14:00 Total Protein 6.8 g/dL (6.6-8.7) 10/16/21 14:00 Albumin 4.2 g/dL (3.5-5.2) 10/16/21 14:00 Globulin 2.6 g/dL (1.3-4.6) 10/16/21 14:00 SARS-CoV-2 Ag (Rapid) Negative (Negative) 10/30/21 11:40 Blood Type A Positive 10/21/21 10:30 Rho(D) Type Positive 10/21/21 10:30 Antibody Screen Negative 10/21/21 10:30 Vitals Last Vital Signs Temp 97.9 F 10/31/21 10:26 Pulse 64 10/31/21 10:26 Resp 13 10/31/21 10:26 BP 180/77 10/31/21 10:26 Pulse Ox 97 10/31/21 10:26 Discharge Plan Discharge Patient Disposition: Xfer [facility] Condition: Stable Prescriptions: Continued atenolol 50 mg tablet 50 mg PO DAILY 0RF omeprazole 40 mg capsule,delayed release(DR/EC) 40 mg PO DAILY 0RF fluticasone propionate 50 mcg/actuation spray,suspension 1 spray intranasal DAILY 0RF Rx Instructions: administer into each nostril hydrochlorothiazide 50 mg tablet 50 mg PO DAILY 0RF pravastatin 20 mg tablet 20 mg PO DAILY 0RF isosorbide mononitrate 30 mg tablet extended release 24 hr 30 mg PO DAILY 0RF hydrocodone-acetaminophen 10-325 mg tablet 1 tab PO Q6H PRN (Reason: Pain) 0RF lisinopril 40 mg tablet 40 mg PO DAILY 0RF glipizide 5 mg tablet 5 mg PO BEDTIME 0RF oxybutynin chloride 5 mg tablet 5 mg PO BID 0RF pseudoephedrine HCl 30 mg tablet 30 mg PO Q6H 0RF potassium chloride [Klor-Con M20] 20 mEq tablet,ER particles/crystals 20 meq PO BID 0RF sennosides [senna] 8.6 mg Tablet 8.6 mg PO DAILY PRN (Reason: Constipation) 0RF citalopram 40 mg tablet 40 mg PO DAILY 0RF gabapentin 100 mg capsule 100 mg PO TID 0RF Multivitamin 50 Plus Tablet 1 tab PO BEDTIME 0RF No Action (DME) Bone growth Stimulator E0748 See Rx Instructions .Route .MEDSUPPLY Qty: 1 0RF Rx Instructions: As directed sulfasalazine 500 mg tablet 0.5 g PO DAILY Qty: 30 3RF Rx Instructions: give with food (meal/snack) Discharge Orders: Discharge Order (Routine); Ordered 10/31/21 Ordered By: Reynaldo Last Referrals: [facility] [Other] Cole Medina DO [Physician] - 10/31/21 8:45 am (YOU HAVE A FOLLOW-UP APPOINTMENT WITH DR. LAST ON Thursday AT 0845 IN THE MORNING. ) Discharge Diet: Advance as tolerated Discharge Activity: Resume usual activity Activity Restrictions/Additional Instructions: Thank you for choosing [facility] for your care! The following is a list of instructions, from your provider, to follow upon your discharge to ensure you have the optimal recovery from your recent injury or surgery. Follow-up care is a dave part of your treatment and safety. Be sure to make and go to all appointments and call your doctor if you are having problems. If you do not already have a follow-up appointment made, call Dr. Medina's] office in the next 1-3 days to make follow up appointment for 1 weeks at [phone]. It is also a good idea to know your test results and keep a list of the medicines you take. Medications will be prescribed for you at your provider's discretion. These medications are to be used as instructed; if they are taken more often that prescribed they will not be refilled early and in most cases will not be refilled at all. > When a refill is needed, you should contact [facility] 2-3 business days before your prescription runs out. Medications will NOT be refilled by personnel analyst providers after hours! > Many pain medications contain Tylenol (Acetaminophen). Do not consume more than 4,000 mg of Tylenol per day in total with any combination of medications. > Pain medications can cause constipation. Please use an over the counter stool softener as directed, while taking pain medications. Consult your local pharmacist with questions or recommendations on stool softeners. If constipation persists, contact our office or your primary care provider. > While under our care, you are not to receive pain medications or other controlled substances from any other provider unless our office is notified and approves. Any attempts to do so will result in refusal to prescribe any further pain medications and possible dismissal from our practice. ? Walking is essential for the healing process after surgery. We would like you to slowly advance your walking. This should be done on relatively flat clear ground (inside or out) or can be done on a treadmill. Remember this goal does not have to happen all at once, slowly increase your distance and duration. This can be broken into more more than one walk per day as tolerated. Patients who walk as directed after surgery rarely require Physical Therapy. In the unlikely event this issue arises your provider will direct hospital staff to make the appropriate arrangements. ? No lifting over 5 pounds {a gallon of milk) or bending/twisting until further notice. Each of these activities places an unnecessary amount of stress onto the body and can impede the delicate healing process. > Instead of bending at the waist, keep your back straight and bend at the knees. > Instead of twisting your torso, keep your back straight and turn your entire body with your feet. ? You may sleep in any position which makes you comfortable. Many patients find comfort sleeping in a reclining chair. It is not abnormal to have difficulty sleeping for the first several weeks following your surgery. We recommend trying Benadry! or Tylenol PM as directed to help with your sleeping difficulties. Both medications are over the counter and available without prescription. ? NO SMOKING!!! Smoking dramatically increases the probability of developing postoperative wound infections. ? Common complaints after lumbar and/or thoracic spine surgery include, but are not limited to: numbness and/or tingling in the legs, pain around the incision and surrounding tissues, muscle spasms, or stiffness of the middle to low back. Contact our office if these symptoms persist or if an acute change occurs. ? No driving for the first 3-5days, and not while taking narcotics until seen at your follow-up appointment and cleared. There are no restrictions for riding on short trips, however if you take a longer trip, arrangements should be made to make regular stops to get out of the vehicle and stretch . ? Swelling is an unfortunate event that will take place with any surgery and is the primary source of your postoperative discomfort. While walking and regular approved activities helps control inflammation, there are additional steps you can take to minimize swelling. > Place ice over the surgical site and surrounding tissue for twenty minutes, followed by applying a low/medium heat (heating pad) for an additional twenty minutes every 1-2 hours as needed for painrelief. > You may use of over the counter anti-inflammatory medications (Ibuprofen, Motrin, Aleve, Advil, etc) as directed on the package label. These types of medicines will significantly reduce the amount of discomfort you experience after surgery from swelling. It should be noted that if you have and allergy to any of these medications, or a history of ulcers or kidney disease you should consult you primary care provider prior to starting these medications. Discharge Attestations Time Spent in Discharge Care*: less than 30 min Quality Metrics Clinical Quality Measures [ No reported AMI, CVA or VTE this stay] Coding Level of Care Code Acute g [facility] note Diagnoses Status post lumbar spinal fusion Z98.1
== END 2021-10-31 10:27 | disposition skilled nursing facility (03) ==
LOC: MEDSURG 13:41
PROVIDERS: Anesthesiology; Admitting Provider Orthopaedic Surgery; PCP Obstetrics & Gynecology; Visit Provider Orthopaedic Surgery
PROC: (CPT 22612; principal; 2021-10-21 10:10)
DX: M48.061 Spinal stenosis, lumbar region without neurogenic claudication (principal); M43.16 Spondylolisthesis, lumbar region; I10 Essential (primary) hypertension; E11.9 Type 2 diabetes mellitus without complications; E66.01 Morbid (severe) obesity due to excess calories; Z68.39 Body mass index [BMI] 39.0-39.9, adult; M06.9 Rheumatoid arthritis, unspecified; Z98.1 Arthrodesis status; Z82.3 Family history of stroke; Z83.3 Family history of diabetes mellitus; Z82.49 Family history of ischemic heart disease and other diseases of the circulatory system
CPT/HCPCS: 20930; 20936; 20939; 22633; 22840; 22853; 61783; 63052; 36415; 36416; 51702; 72100; 76000; 80053; 82962; 85025; 86850; 86900; 87426; 96372; 97110; 97116; 97161; 97530; C1713; G0378; J0690; J1100; J1170; J1644; J1650; J1885; J2270; J2370; J2405; J2704; J2710; J3010; J3370; J3490; J7030

== ENCOUNTER → 2021-11-14 10:44 | Outpatient (BNVA) | payer MEDICARE, MEDICAID, SELFPAY | PROVIDERS: PCP Obstetrics & Gynecology; Visit Provider Orthopaedic Surgery | DX: R20.0 Anesthesia of skin (principal); R20.2 Paresthesia of skin; R32 Unspecified urinary incontinence; Z47.89 Encounter for other orthopedic aftercare; Z98.890 Other specified postprocedural states; Z98.1 Arthrodesis status | CPT/HCPCS: 99024 ==

== ENCOUNTER 2021-12-04 09:51 | Outpatient (CLI) | payer MEDICARE, MEDICAID, SELFPAY ==
--- NOTE | 2021-12-04 09:30 | MR_ITS ---
WS: [id number] MRI LUMBAR SPINE WITH CONTRAST TECHNIQUE: Sagittal T1, T2 and STIR imaging. Axial T1 and T2 imaging. Post gadolinium imaging was obt ained. CLINICAL INFORMATION: numbness and weakness to right lower ext COMPARISON: MRI April 15, 2021 FINDINGS: Prior postoperative changes ACDF C5-C6. Thoracolumbar curve. Thoracic kyphosis. Mild lumbar curve. N o acute compression fractures. Mild chronic anterior wedging at T10 and T11. Tiny central protrusions at T10-T11 T11-T12. Slight contact of the thoracic cord at T11-T12 with mild central canal stenosis. Pedicle screw fixation L4-L5 with interbody fusion laminectomy defect is new from previous. Postoper ative changes in the dorsal subcutaneous soft tissues. L1-L2: Mild facet arthropathy. Spinal canal and foramen are patent. L2-L3: Slight retrolisthesis. Mild disc bulging with moderate central canal stenosis. Moderate facet arthropathy. Foramen are patent. L3-L4: Mild disc bulging with osteophytic ridging. Mild central canal stenosis. Narrowing of the LEFT greater than RIGHT subarticular recess. Mild RIGHT foraminal narrowing. L4-L5: Pedicle screw fixation with interbody fusion. Mild central canal stenosis. Mild RIGHT and no s ignificant LEFT foraminal narrowing. Laminectomy defects with seroma/residual hematoma eccentric to t he RIGHT measuring 3.1 x 2.1 x 2.6 cm AP by transverse by craniocaudal. Edema in the subcutaneous sof t tissues with a small amount of fluid along the surgical tract. L5-S1: Minimal disc bulging with osteophytic ridging. Advanced arthropathy. Spinal canal and foramen are patent. MR/MR lumbar spine wo/w con [id number] IMPRESSION: 1. Postoperative changes pedicle screw fixation with interbody fusion and lami nectomy defect is new from previous. Decompression of the central canal stenosi s L4-L5. 2. Mild residual narrowing of the thecal sac with mild crowding of the cauda e quina nerve rootlets with fluid collection likely seroma/residual hematoma rebecca uring 3.1 x 2.1 x 2.6 cm AP by transverse by craniocaudal. 3. Moderate central canal stenosis L2-L3 due to small central disc protrusion in combination with facet arthropathy and ligamentum flavum hypertrophy. This a ppears unchanged. 4. Mild RIGHT L4-L5 foraminal narrowing. 5. Advanced facet arthropathy L5-S1.
== END 2021-12-04 09:52 | disposition home or self-care (01) ==
LOC: RAD 09:58
PROVIDERS: PCP Obstetrics & Gynecology; Visit Provider Orthopaedic Surgery
DX: M48.061 Spinal stenosis, lumbar region without neurogenic claudication (principal); R20.0 Anesthesia of skin; R20.2 Paresthesia of skin; Z98.1 Arthrodesis status
CPT/HCPCS: 72158

== ENCOUNTER → 2021-12-19 13:51 | Outpatient (BNVA) | payer MEDICARE, MEDICAID, SELFPAY | PROVIDERS: PCP Obstetrics & Gynecology; Visit Provider Orthopaedic Surgery | DX: Z47.89 Encounter for other orthopedic aftercare (principal); Z98.1 Arthrodesis status; M47.9 Spondylosis, unspecified | CPT/HCPCS: 72100; 99024 ==

== ENCOUNTER 2021-12-30 12:16 | Day surgery (SDC) | payer MEDICARE, MEDICAID, SELFPAY ==
[2021-12-27 17:59] VITALS: BMI 45.7
[2021-12-30] VITALS (24 sets, daily range): BP systolic 111–173; BP diastolic 53–102; PULSE 58–82; RESP 14–21; TEMP 36.2–36.9; O2SAT 91–100
--- NOTE | 2021-12-30 13:02 | W.PM.OPSUD ---
Surgery/Procedure H&P Update DATE OF PROCEDURE: December 30, 2021 DATE H&P PERFORMED: 12/19/21 H&P UPDATE INFORMATION: I have reviewed H&P completed within last 30 days, I have examined patient prior to procedure and No changes to prior documentation PREOP DIAGNOSIS: Spondylolisthesis L4-5 w/ lumbar stenosis PLANNED PROCEDURE: Operation Date: 12/30/21 13:55 Proposed Procedures p Incision and Drainage HEMATOMA 30863/L76.32(Not Applicable) - Cole Medina DO
[2021-12-30 13:12] LABS: Glucose Point of Care 101 mg/dL (70-110)
[2021-12-30] MEDS: sodium chloride 0.9% 1,000 ML 30 ML IV (13:14)
--- NOTE | 2021-12-30 13:14 | ANES.PREANE2 ---
Pre-Anesthetic Assessment Height/Weight: Height 1.57 m Weight 113.398 kg Temp Pulse Resp BP Pulse Ox 98.4 F 60 17 173/71 97 12/30/21 12:58 12/30/21 12:58 12/30/21 12:58 12/30/21 12:58 12/30/21 12:58 Preop Diagnosis: Spondylolisthesis L4-5 w/ lumbar stenosis Operation Date: 12/30/21 13:55 Proposed Procedures p Incision and Drainage HEMATOMA 89750/L76.32(Not Applicable) - Cole Medina, Familial anesthetic complications: none Was Beta Rao taken within 24 hours: Yes Was Clonidine taken within 24 hours: N/A Last intake: Intake Last Liquid Date 12/29/21 Last Liquid Time 22:30 Last Solid Date 12/29/21 Last Solid Time 22:30 Social No alcohol and No tobacco Exam alert, oriented x 3, clear to auscultation bilaterally and regular rate & rhythm Airway Submandibular: within normal limits Cervical ROM: within normal limits Mallampati: Class III Dentition: partials Comments: Comments: missing teeth Pulmonary None reported CV/HEM Hypertension Incontinence Hepatic None reported GI None reported Metabolic Diabetes Mellitus and Morbid Obesity Musc/skel Lower Back Pain, Osteoarthritis/DJD and Rheumatoid Arthritis Spinal stenosis w/ neurogenic claudication with hematoma s/p surgery Neuropsych Neuropathy Anesthetic Plan ASA status: 3 (61 year old female s/p lumbar instrumentation now w/ hematoma with incontinence, morbid obesity, RA, DM, and HTN ) Anesthesia: Anesthesia Evaluation and General Other: We discussed risk and benefits of general anesthesia including PONV, sore throat (sometimes severe), corneal abrasion, positioning and peripheral nerve injuries, life threatening allergic reaction, post operative ICU admission requiring prolonged intubation, aspiration, stroke, heart attack, , and rare incidences of recall. Patient consents to proceed with general anesthesia. Risk of > 500 ml blood loss (7ml/kg in children): No Medications/Allergies Home Medications Medication Instructions Recorded Confirmed Last Taken Type atenolol 50 mg tablet 50 mg PO DAILY 09/06/20 12/30/21 12/30/21 07:00 History fluticasone propionate 50 1 spray INTRANASAL DAILY 09/06/20 12/30/21 12/29/21 07:00 History mcg/actuation nasal spray,suspension glipizide 5 mg tablet 5 mg PO BEDTIME 09/06/20 12/30/21 12/28/21 21:00 History hydrochlorothiazide 50 mg tablet 50 mg PO DAILY 09/06/20 12/30/21 12/29/21 07:00 History hydrocodone 10 mg-acetaminophen 1 tab PO Q6H PRN 09/06/20 12/30/21 12/29/21 07:00 History 325 mg tablet isosorbide mononitrate 30 mg 30 mg PO DAILY 09/06/20 12/30/21 12/29/21 07:00 History tablet,extended release 24 hr lisinopril 40 mg tablet 40 mg PO DAILY 09/06/20 12/19/21 12/29/21 07:00 History omeprazole 40 mg capsule,delayed 40 mg PO DAILY 09/06/20 12/30/21 12/29/21 07:00 History release oxybutynin chloride 5 mg tablet 5 mg PO BID 09/06/20 12/30/21 12/29/21 21:00 History potassium chloride 20 mEq 20 meq PO BID 09/06/20 12/30/21 12/29/21 21:00 History tablet,extended release(part/cryst) (Klor-Con M) pravastatin 20 mg tablet 20 mg PO DAILY 09/06/20 12/30/21 12/29/21 21:00 History pseudoephedrine HCl 30 mg tablet 30 mg PO Q6H PRN 09/06/20 12/27/21 10/18/21 History citalopram 40 mg tablet 40 mg PO DAILY 10/16/21 12/30/21 12/29/21 07:00 History gabapentin 100 mg capsule 300 mg PO TID 10/16/21 12/30/21 12/29/21 21:00 History rayxrhewacfd-nhzssdgy-nzvcyr 1 tab PO BEDTIME 10/16/21 12/30/21 12/29/21 21:00 History tablet (Multivitamin 50 Plus) sennosides 8.6 mg tablet (senna) 8.6 mg PO DAILY PRN 10/16/21 12/27/21 10/14/21 History Bone growth Stimulator E0748 #1 ea 10/25/21 12/19/21 Unknown Rx sulfasalazine 500 mg tablet 500 mg PO DAILY 12/27/21 12/30/21 12/29/21 21:00 History hydrocodone 10 mg-acetaminophen 1 tab PO Q4H PRN 7 Days #40 tab 12/30/21 Unknown Rx 325 mg tablet Allergies Allergy/AdvReac Type Severity Reaction Status Date / Time morphine Allergy ADR-Headach Verified 12/30/21 12:41 e PFSH Anesthesia Family History Mother Stroke Hypertension Family history of premature coronary artery disease Diabetes Cancer CAD (coronary artery disease) Rheumatoid arthritis Father Hypertension Diabetes CAD (coronary artery disease) Family/Other Lupus Social History Smoking and tobacco status: never smoked Second hand smoke exposure: No Alcohol intake: never Lives independently: Yes History of recent travel: No Data Anesthesia Cardiac Studies: No Data to Display
[2021-12-30] MEDS: vancomycin 1,000 MG SDV 1000 MG XX (14:31)
--- NOTE | 2021-12-30 15:19 | P.OP_ITS ---
Operative Report Date of procedure: December 30, 2021 Pre-op diagnosis: Preop Diagnosis Spondylolisthesis L4-5 w/ lumbar stenosis Post-op diagnosis: same Procedure done: Exploration of pseudomeningocele; Irrigation and debridement of seroma Surgeon: Cole Medina Tool Room Gear Machine Operator: Reynaldo Trevizo Estimated blood loss (mL): 10 Procedure: Exploration of pseudomeningocele; Irrigation and debridement of seroma Patient is brought to the procedure after undergoing anesthesia all areas impingement well-padded. Neuro monitoring was completed. Showed that everything was intact except bilateral gastrocs. There was slight gastroc on the right. Sensory's were intact bilaterally. This point patient was then flipped over into the prone position. All areas impingement were well-padded. Patient was then prepped and draped in a sterile fashion. Skin was made using the previous skin incision. Dissection was brought down to the serina on the right side. The lamina of L4 was identified. A curved curette was brought underneath the lamina and brought around. Pseudomeningocele was identified. Pseudomeningocele was debrided did not be appear to be any type of dural leak. DuraGen and DuraSeal were placed at the end of the case in order to make sure that nothing does start leaking. This was done prophylactically. Nerve roots were felt to be free and no impingement. Neuro monitoring throughout the case did not show any signs of any changes. Wounds irrigated and closed with Vicryl and nylon suture in a layered fashion. Sterile dressings were applied and patient was transferred to the PACU in stable condition.
[2021-12-30] MEDS: fentaNYL 50 mcg/mL INJ 2mL IVP (16:38)
[2021-12-30] MEDS: HYDROcodone-acetaminophen 10-325 mg Tablet 1 TAB PO (17:38)
--- NOTE | 2021-12-30 18:16 | SUR.PHASEII ---
1800 dressing to back saturated and dsg reinforced and tegederm x2 applied
--- NOTE | 2021-12-30 19:41 | ANE.PACU2 ---
Inpatient post-anesthesia follow up: Airway intact: Yes Vital signs: Temperature 98 F Pulse Rate 65 Respiratory Rate 16 Blood Pressure 122/61 Pulse Oximetry 97 Oxygen Delivery Me thod Room Air Oxygen Flow Rate 3.0 Fraction of Inspir ed Oxygen Hydration adequate: Yes Nausea and vomiting: No Pain level: 6 Mental status: Baseline
== END 2021-12-30 18:13 | disposition home or self-care (01) ==
PROVIDERS: PCP Obstetrics & Gynecology; Visit Provider Orthopaedic Surgery
PROC: (CPT 22015; principal; 2021-12-30 13:45)
DX: M43.16 Spondylolisthesis, lumbar region (principal); I10 Essential (primary) hypertension; E11.9 Type 2 diabetes mellitus without complications; E66.01 Morbid (severe) obesity due to excess calories; Z68.42 Body mass index [BMI] 45.0-49.9, adult
CPT/HCPCS: 22015; 36416; 82962; J0330; J1100; J1200; J2405; J2704; J2710; J3010; J3370; J3490; J7030

== ENCOUNTER → 2022-01-07 13:21 | Outpatient (BNVA) | payer MEDICARE, MEDICAID, SELFPAY | PROVIDERS: PCP Obstetrics & Gynecology; Visit Provider Orthopaedic Surgery | DX: Z47.89 Encounter for other orthopedic aftercare (principal); Z98.890 Other specified postprocedural states; Z98.1 Arthrodesis status | CPT/HCPCS: 99024 ==

== ENCOUNTER 2022-01-07 14:37 | Outpatient (CLI) | payer MEDICARE, MEDICAID, SELFPAY ==
[2022-01-07 15:27] LABS: Basophils % 0.3 %; Eosinophils % 0.1 %; Hematocrit 31.1 % (37.0-47.0); Hemoglobin 9.8 g/dL (11.5-15.3); Lymphocytes # 1.9 10^3/uL (0.8-4.8); Lymphocytes % 25.3 %; Mean Corpuscular HGB Conc 31.5 g/dL (30.0-36.0); Mean Corpuscular Hemoglobin 24.9 pg (28.0-34.0); Mean Corpuscular Volume 79.1 fl (81-99); Monocytes # 0.7 10^3/uL (0.2-0.9); Monocytes % 9.8 %; Neutrophils # 4.69 10^3/uL (1.8-7.7); Neutrophils % 64.2 %; Nucleated Red Blood Cells % 0 %; Platelet Count 269 10^3/cmm (130-400); Red Blood Count 3.93 10^6/uL (4.1-5.3); Red Cell Distribution Width 13.2 % (12.1-15.1); White Blood Count 7.3 10^3/uL (4.0-10.0)
[2022-01-07 15:46] LABS: Alanine Aminotransferase 15 U/L (0-33); Albumin Level 3.9 g/dL (3.5-5.2); Alkaline Phosphatase 64 IU/L (35-105); Anion Gap 13.4 (5-19); Aspartate Amino Transferase 13 U/L (0-32); Blood Urea Nitrogen 11 mg/dL (6-20); Calcium 9.1 mg/dL (8.5-10.5); Carbon Dioxide 29 mmol/L (22-29); Chloride 95 mmol/L (98-107); Globulin 2.9 g/dL (1.3-4.6); Glomerular Filtration Rate 126.3 mL/min (90-130); Glucose 117 mg/dL (65-115); Osmolality Calculated 278 mOsm/kg (285-295); Potassium 3.4 mmol/L (3.5-5.1); Sodium 134 mmol/L (136-145); Total Bilirubin 0.2 mg/dL (0.15-1.2); Total Protein 6.8 g/dL (6.6-8.7)
[2022-01-09 18:48] LABS: Erythrocyte Sedimentation Rate 17 mm/hr (0-15)
== END 2022-01-07 14:38 | disposition home or self-care (01) ==
LOC: LAB 14:40
PROVIDERS: Internal Medicine; PCP Obstetrics & Gynecology; Visit Provider Psychiatry & Neurology Psychiatry
DX: M43.16 Spondylolisthesis, lumbar region (principal); M25.50 Pain in unspecified joint; M35.00 Sjogren syndrome, unspecified; R76.8 Other specified abnormal immunological findings in serum
CPT/HCPCS: 80053; 85025; 85651; 86140

== ENCOUNTER → 2022-01-14 12:44 | Outpatient (BNVA) | payer MEDICARE, MEDICAID, SELFPAY | PROVIDERS: PCP Obstetrics & Gynecology; Visit Provider Orthopaedic Surgery | DX: Z98.890 Other specified postprocedural states (principal); Z98.1 Arthrodesis status; Z47.89 Encounter for other orthopedic aftercare | CPT/HCPCS: 99024 ==

== ENCOUNTER → 2022-02-13 13:31 | Outpatient (BNVA) | payer MEDICARE, MEDICAID, SELFPAY | PROVIDERS: PCP Obstetrics & Gynecology; Visit Provider Orthopaedic Surgery | DX: Z98.1 Arthrodesis status (principal); Z47.89 Encounter for other orthopedic aftercare | CPT/HCPCS: 72100; 99024; 99212 ==

== ENCOUNTER → 2022-02-20 10:01 | Outpatient (BNVA) | payer MEDICARE, MEDICAID, SELFPAY | PROVIDERS: PCP Obstetrics & Gynecology; Visit Provider Internal Medicine | DX: R76.8 Other specified abnormal immunological findings in serum (principal); M53.3 Sacrococcygeal disorders, not elsewhere classified | CPT/HCPCS: 99213; 99214 ==

== ENCOUNTER → 2022-03-25 14:25 | Outpatient (BNVA) | payer MEDICARE, MEDICAID, SELFPAY | PROVIDERS: PCP Obstetrics & Gynecology; Visit Provider Orthopaedic Surgery | DX: R53.1 Weakness (principal); R20.0 Anesthesia of skin; Z98.1 Arthrodesis status; Z47.89 Encounter for other orthopedic aftercare | CPT/HCPCS: 72100; 99024; 99213 ==

== ENCOUNTER 2022-03-25 14:55 | Outpatient (CLI) | payer MEDICARE, MEDICAID, SELFPAY ==
[2022-03-25 15:27] LABS: Basophils % 0.5 %; Eosinophils # 0.3 10^3/uL (0.0-0.8); Eosinophils % 3.5 %; Hematocrit 37.2 % (37.0-47.0); Hemoglobin 11.9 g/dL (11.5-15.3); Lymphocytes # 2.6 10^3/uL (0.8-4.8); Lymphocytes % 29.4 %; Mean Corpuscular Hemoglobin 27.1 pg (28.0-34.0); Mean Corpuscular Volume 84.7 fl (81-99); Mean Platelet Volume 9.6 fL (7.4-10.4); Monocytes # 0.7 10^3/uL (0.2-0.9); Monocytes % 8.3 %; Neutrophils # 5.04 10^3/uL (1.8-7.7); Neutrophils % 58.1 %; Nucleated Red Blood Cells % 0 %; Platelet Count 282 10^3/cmm (130-400); Red Blood Count 4.39 10^6/uL (4.1-5.3); Red Cell Distribution Width 14.6 % (12.1-15.1); White Blood Count 8.7 10^3/uL (4.0-10.0)
[2022-03-25 15:32] LABS: Erythrocyte Sedimentation Rate 16 mm/hr (0-15)
[2022-03-25 15:50] LABS: Alanine Aminotransferase 16 U/L (0-33); Albumin Level 3.9 g/dL (3.5-5.2); Alkaline Phosphatase 59 U/L (35-105); Anion Gap 16.6 (5-19); Aspartate Amino Transferase 17 U/L (0-32); Blood Urea Nitrogen 9 mg/dL (6-20); C Reactive Protein 4.6 mg/L (0.0-4.9); Calcium 9.2 mg/dL (8.5-10.5); Carbon Dioxide 25 mmol/L (22-29); Chloride 93 mmol/L (98-107); Globulin 2.9 g/dL (1.3-4.6); Glomerular Filtration Rate 163.4 mL/min (90-130); Glucose 85 mg/dL (65-115); Osmolality Calculated 270 mOsm/kg (285-295); Potassium 3.6 mmol/L (3.5-5.1); Sodium 131 mmol/L (136-145); Total Bilirubin 0.3 mg/dL (0.15-1.2); Total Protein 6.8 g/dL (6.6-8.7)
== END 2022-03-25 14:56 | disposition home or self-care (01) ==
PROVIDERS: PCP Obstetrics & Gynecology; Visit Provider Internal Medicine
DX: M25.50 Pain in unspecified joint (principal); M53.3 Sacrococcygeal disorders, not elsewhere classified; R10.9 Unspecified abdominal pain; R76.8 Other specified abnormal immunological findings in serum
CPT/HCPCS: 36415; 80053; 85025; 85651; 86140

== ENCOUNTER → 2022-05-20 09:36 | Outpatient (BNVA) | payer MEDICARE, MEDICAID, SELFPAY | PROVIDERS: PCP Obstetrics & Gynecology; Referring Provider Orthopaedic Surgery; Visit Provider Specialist | DX: G62.89 Other specified polyneuropathies (principal) | CPT/HCPCS: 95909; 95911 ==

== ENCOUNTER → 2022-05-27 14:34 | Outpatient (BNVA) | payer MEDICARE, MEDICAID, SELFPAY | PROVIDERS: PCP Obstetrics & Gynecology; Visit Provider Orthopaedic Surgery | DX: Z47.89 Encounter for other orthopedic aftercare (principal); Z98.1 Arthrodesis status | CPT/HCPCS: 99214 ==

== ENCOUNTER → 2022-08-25 13:56 | Outpatient (BNVA) | payer MEDICARE, MEDICAID, SELFPAY | PROVIDERS: PCP Obstetrics & Gynecology; Visit Provider Internal Medicine | DX: M53.3 Sacrococcygeal disorders, not elsewhere classified (principal); M25.50 Pain in unspecified joint; R76.8 Other specified abnormal immunological findings in serum | CPT/HCPCS: 36415; 80053; 82550; 85025; 85651; 86140; 99213 ==

== ENCOUNTER → 2022-09-04 12:08 | Outpatient (BNVA) | payer MEDICARE, MEDICAID, SELFPAY | PROVIDERS: PCP Obstetrics & Gynecology; Referring Provider Orthopaedic Surgery; Visit Provider Specialist | DX: E11.42 Type 2 diabetes mellitus with diabetic polyneuropathy (principal); Z98.1 Arthrodesis status; M54.17 Radiculopathy, lumbosacral region | CPT/HCPCS: 95861; 95886; 99202 ==

== ENCOUNTER → 2022-09-25 09:07 | Outpatient (BNVA) | payer MEDICARE, MEDICAID, SELFPAY | PROVIDERS: PCP Obstetrics & Gynecology; Visit Provider Orthopaedic Surgery | DX: M48.062 Spinal stenosis, lumbar region with neurogenic claudication (principal); Z98.1 Arthrodesis status | CPT/HCPCS: 72100; 99213 ==

== ENCOUNTER 2022-10-06 08:17 | Outpatient (CLI) | payer MEDICARE, MEDICAID, SELFPAY ==
--- NOTE | 2022-10-06 08:00 | MR_ITS ---
WS: [id number] MRI LUMBAR SPINE WITH CONTRAST TECHNIQUE: Sagittal T1, T2 and STIR imaging. Axial T1 and T2 imaging. Post gadolinium imaging was obt ained. CLINICAL INFORMATION: Z98.1 - Arthrodesis status COMPARISON: None. FINDINGS: Mild lumbar curve. No acute compression fractures. Mild chronic anterior wedging at T10 and T11 uncha nged. Tiny central protrusions at T10-T11 T11-T12. Slight contact of the thoracic cord at T11-T12 wit h mild central canal stenosis. Pedicle screw fixation L4-L5 with interbody fusion. Stable laminectomy defects L4-L5. Previously desc ribed seroma has essentially resolved with decompression of the spinal canal at this level. No recurr ent disc extrusion. L1-L2: Mild facet arthropathy. Spinal canal and foramen are patent. L2-L3: Slight retrolisthesis. Mild disc bulging with moderate central canal stenosis. Moderate facet arthropathy. Foramen are patent. L3-L4: Mild disc bulging with osteophytic ridging. Mild central canal stenosis. Narrowing of the suba rticular recess bilaterally. Mild bilateral foraminal narrowing. L4-L5: Pedicle screw fixation with interbody fusion. Spinal canal is patent. Mild RIGHT and no signif icant LEFT foraminal narrowing. Laminectomy defects. L5-S1: Minimal disc bulging with osteophytic ridging. Advanced arthropathy. Spinal canal and foramen are patent. MR/MR lumbar spine wo/w con [id number] IMPRESSION: 1. Postoperative changes pedicle screw fixation with interbody fusion and lami nectomy defects appear stable compared to previous 2. Previously described seroma/hematoma has resolved.. 3. Spinal canal is decompressed at L4-L5. 4. Moderate central canal stenosis L2-L3 due to small central disc protrusion in combination with facet arthropathy and ligamentum flavum hypertrophy. Imping ement on the traversing L3 nerve roots bilaterally. This appears slightly progr essed. 5. Mild central canal stenosis L3-L4. 6. Mild RIGHT L4-L5 foraminal narrowing. 7. Advanced facet arthropathy L5-S1.
[2022-10-06] MEDS: gadobenate dimeglumine 20 mL vial IV (09:14)
== END 2022-10-06 08:18 | disposition home or self-care (01) ==
PROVIDERS: PCP Obstetrics & Gynecology; Visit Provider Specialist
DX: Z98.1 Arthrodesis status (principal); M54.17 Radiculopathy, lumbosacral region; G62.89 Other specified polyneuropathies; M51.26 Other intervertebral disc displacement, lumbar region; M47.896 Other spondylosis, lumbar region; M48.061 Spinal stenosis, lumbar region without neurogenic claudication
CPT/HCPCS: 72158; A9577

== ENCOUNTER → 2022-10-16 14:50 | Outpatient (BNVA) | payer MEDICARE, MEDICAID, SELFPAY | PROVIDERS: PCP Obstetrics & Gynecology; Visit Provider Orthopaedic Surgery | DX: M48.062 Spinal stenosis, lumbar region with neurogenic claudication (principal) | CPT/HCPCS: 99214 ==

== ENCOUNTER → 2022-11-11 14:54 | Outpatient (BNVA) | payer MEDICARE, MEDICAID, SELFPAY | PROVIDERS: PCP Obstetrics & Gynecology; Visit Provider Physician Assistant | DX: Z98.1 Arthrodesis status (principal); M48.062 Spinal stenosis, lumbar region with neurogenic claudication | CPT/HCPCS: 99213 ==

== ENCOUNTER → 2022-11-17 11:39 | Outpatient (BNVA) | payer MEDICARE, MEDICAID, SELFPAY | PROVIDERS: PCP Obstetrics & Gynecology; Visit Provider Internal Medicine | DX: M53.3 Sacrococcygeal disorders, not elsewhere classified (principal); R76.8 Other specified abnormal immunological findings in serum; M25.50 Pain in unspecified joint; M54.9 Dorsalgia, unspecified; G89.29 Other chronic pain | CPT/HCPCS: 36415; 80053; 83036; 85025; 85651; 86140; 99214 ==

== ENCOUNTER 2022-11-28 05:59 | Day surgery (SDC) | payer MEDICARE, MEDICAID, SELFPAY ==
[2022-11-21 10:48] VITALS: BMI 45.7
--- NOTE | 2022-11-21 14:49 | ANES.PREANE2 ---
Pre-Anesthetic Assessment Height/Weight: Height 1.57 m Weight 113.398 kg Operation Date: 11/28/22 07:00 Proposed Procedures p RIGHT sided L3/4 L5/S1 Lumbar Decompression:[id number],M48.062(Right) - DO Migel Orellana anesthetic complications: none Was Beta Rao taken within 24 hours: Yes Was Clonidine taken within 24 hours: N/A Social No alcohol and No tobacco Exam alert, oriented x 3, clear to auscultation bilaterally and regular rate & rhythm Airway Submandibular: within normal limits Cervical ROM: within normal limits Mallampati: Class II Dentition: chipped CV/HEM Hypertension GI Gastroesophageal Reflux Disease Metabolic Diabetes Mellitus, Hyperlipidemia and Morbid Obesity Musc/skel Lower Back Pain and Osteoarthritis/DJD Neuropsych Neuropathy Anesthetic Plan ASA status: 3 Anesthesia: General Medications/Allergies Home Medications Medication Instructions Recorded Confirmed Last Taken Type atenolol 50 mg tablet 50 mg PO DAILY 09/06/20 11/21/22 11/21/22 History fluticasone propionate 50 1 spray intranasal DAILY 09/06/20 11/21/22 11/21/22 History mcg/actuation nasal spray,suspension glipizide 5 mg tablet 5 mg PO BEDTIME 09/06/20 11/21/22 11/20/22 History hydrochlorothiazide 50 mg tablet 50 mg PO DAILY 09/06/20 11/21/22 11/21/22 History hydrocodone 10 mg-acetaminophen 1 tab PO Q6H PRN Pain 09/06/20 11/21/22 11/21/22 History 325 mg tablet isosorbide mononitrate 30 mg 30 mg PO DAILY 09/06/20 11/21/22 11/21/22 History tablet,extended release 24 hr lisinopril 40 mg tablet 40 mg PO DAILY 09/06/20 11/21/22 11/21/22 History omeprazole 40 mg capsule,delayed 40 mg PO DAILY 09/06/20 11/21/22 11/21/22 History release oxybutynin chloride 5 mg tablet 5 mg PO BID 09/06/20 11/21/22 11/21/22 History potassium chloride 20 mEq 20 meq PO BID 09/06/20 11/21/22 11/21/22 History tablet,extended release(part/cryst) (Klor-Con M) pravastatin 20 mg tablet 20 mg PO DAILY 09/06/20 11/21/22 11/21/22 History pseudoephedrine HCl 30 mg tablet 30 mg PO Q6H PRN Allergy Symptoms 09/06/20 11/21/22 11/21/22 History vwzikxppytgn-jiutpxte-dovldk 1 tab PO BEDTIME 10/16/21 11/21/22 11/20/22 History tablet (Multivitamin 50 Plus tablet) sennosides 8.6 mg tablet (senna) 8.6 mg PO DAILY PRN Constipation 10/16/21 11/21/22 11/20/22 History pregabalin 300 mg capsule 300 mg PO BID Neuropathy 11/17/22 11/21/22 11/21/22 History sertraline 100 mg tablet 100 mg PO DAILY Depression 11/17/22 11/21/22 11/21/22 History sulfasalazine 500 mg tablet 500 mg PO BID #180 tabs 11/21/22 11/21/22 11/21/22 Rx Allergies Allergy/AdvReac Type Severity Reaction Status Date / Time morphine Allergy ADR-Headach Verified 11/21/22 10:41 e PFSH Anesthesia Medical History Essential hypertension Hyperlipidemia Type 2 diabetes mellitus without complications Surgical History History of History of cholecystectomy History of hernia repair History of knee replacement, total History of removal of cyst History of rotator cuff surgery Family History Mother Stroke Hypertension Family history of premature coronary artery disease Diabetes Cancer CAD (coronary artery disease) Rheumatoid arthritis Father Hypertension Diabetes CAD (coronary artery disease) Family/Other Lupus Social History Smoking and tobacco status: never smoked Second hand smoke exposure: No Alcohol intake: never Substance/Drug Use: never Lives independently: Yes Data Anesthesia Cardiac Studies: No Data to Display
[2022-11-28] VITALS (14 sets, daily range): BP systolic 114–168; BP diastolic 52–87; PULSE 46–55; RESP 10–21; TEMP 35.5–36.8; O2SAT 92–99
--- NOTE | 2022-11-28 | XR_ITS ---
WS: [id number] Lumbar spine, fluoroscopy, 11/28/2022 Clinical Data: EDYTA PICS Comparison: Lumbar spine, 09/25/2022 Findings: Dr. Medina performed a lumbar decompression. XR/XR lumbar spine 2-3V* [id number] Impression: Lumbar decompression.
--- NOTE | 2022-11-28 06:28 | W.PM.OPSUD ---
Surgery/Procedure H&P Update DATE OF PROCEDURE: November 28, 2022 DATE H&P PERFORMED: 11/13/22 H&P UPDATE INFORMATION: I have reviewed H&P completed within last 30 days, I have examined patient prior to procedure and No changes to prior documentation PREOP DIAGNOSIS: Lumbar stenosis, polyneuropathy PLANNED PROCEDURE: Operation Date: 11/28/22 07:00 Proposed Procedures p RIGHT sided L3/4 L5/S1 Lumbar Decompression:[id number],M48.062(Right) - Cole Medina DO
[2022-11-28] MEDS: sodium chloride 0.9% 1,000 ML 30 ML IV (06:32)
--- NOTE | 2022-11-28 06:46 | P.ANESUD_ITS ---
Pre-Anesthetic Update Pre-Anesthetic Assessment: Date of Surgery/Procedure: 11/28/22 Preop Sabina gnosis: Lumbar stenosis, polyneuropathy Proposed Procedure: Operation Date: 11/28/22 07:00 Proposed Procedures p RIGHT sided L3/4 L5/S1 Lumbar Decompression:[id number],M48.062(Right) - Cole Medina, DO Any changes to Pre-Anesthetic Assessment?: No Last Intake: Intake Last Liquid Date 11/27/22 Last Liquid Time 23:30 Last Solid Date 11/27/22 Last Solid Time 23:30 Vitals: Temperature 98.2 F 11/28/22 06:22 Temperature Source Tympanic 11/28/22 06:22 Pulse Rate 53 L 11/28/22 06:22 Respiratory Rate 18 11/28/22 06:22 Blood Pressure 168/87 11/28/22 06:22 Blood Pressure Antonella n 114 11/28/22 06:22 Pulse Oximetry 96 11/28/22 06:22 Oxygen Delivery Me thod Room Air 11/28/22 06:22 Exam: Pre-Anes Outpt Exam: alert, oriented x 3, clear to auscultation bilaterally and regular rate & rhythm Cardiac Studies: No Data to Display
[2022-11-28] MEDS: ceFAZolin 2,000 MG in sodium chloride 0.9% (plus) 50 ML 100 MG IV (06:59)
[2022-11-28] MEDS: lidocaine-epi 1% 20 mL INJ INJECTION (08:13)
--- NOTE | 2022-11-28 09:07 | P.OP_ITS ---
Operative Report Date of procedure: November 28, 2022 Pre-op diagnosis: Preop Diagnosis Lumbar stenosis, polyneuropathy Post-op diagnosis: same Post-op findings: 1. L3/4 laminectomy with partial facetectomy 2. L5/S1 laminectomy with partial facetectomy Surgeon: Cole Medina Customer Advocacy Manager: none Estimated blood loss (mL): 10 Procedure: 1. L3/4 laminectomy with partial facetectomy 2. L5/S1 laminectomy with partial facetectomy Patient is brought to the operative suite. After undergoing anesthesia they are placed in the prone position. All areas of impingement are well padded. Patient is then prepped and draped in the normal sterile fashion. A skin incision is made over the L3/4 level on the left. This is confirmed under c-arm guidance. A series of dilators are passed and the tubular retractor is docked on the L3 lamina. A bovie is used to clear the soft tissue off the lamina along with a significant amount of scar tissue and the L 3/4 facet joint. A high speed maria e is then used to perform the laminectomy and take down the medial aspect of the L 3/4 facet joint. A kerrison rongeure was then used to take down the remaining lamina and smooth the edge of the laminectomy up to the point where the ligamentum flavum attaches. Attention was then brought to the medial aspect of the facet joint. The remaining medial aspect of the superior and inferior aspect of the facet joint were taken down with the kerrison from the pedicle of L3 to L 4. The facet joint had significant hypertrophy. Attention was then brought to the Ligamentum Flavum. The ligament was taken down from the lamina of L3 to L4 and out medially to the remaining facet joint. The ligament was thick. The dura was then exposed. The dura was in good repair. The L3 nerve was then traced with a curette out the L3/4 foramen and found to be adequately decompressed. The L4 nerve was traced with a curette around the L4 pedicle. The lateral recess was opened with a kerrison helping to further decompress the L4 nerve. The contralateral lamina was also undermined to ensure that the space was opened this was felt with a curved curette and felt to be adequately decompressed. Wound is then irrigated copiously with saline and surgiflo is used to stop any bleeding. The tubular retractor is removed and the A skin incision is made over the L5/S1 level on the left. This is confirmed under c-arm guidance. A series of dilators are passed and the tubular retractor is docked on the L5 lamina. A bovie is used to clear the soft tissue off the lamina and the L 5/S1 facet joint. A high speed maria e is then used to perform the laminectomy and take down the medial aspect of the L 5/S1 facet joint. A kerrison rongeure was then used to take down the remaining lamina and smooth the edge of the laminectomy up to the point where the ligamentum flavum attaches. Attention was then brought to the medial aspect of the facet joint. The remaining medial aspect of the superior and inferior aspect of the facet joint were taken down with the kerrison from the pedicle of L5 to S1. The facet joint had significant hypertrophy. Attention was then brought to the Ligamentum Flavum. The ligament was taken down from the lamina of L5 to S1 and out medially to the remaining facet joint. The ligament was thick. The dura was then exposed. The dura was in good repair. The L5 nerve was then traced with a curette out the L5/S1 foramen and found to be adequately decompressed. The S1 nerve was traced with a curette around the S1 pedicle. The lateral recess was opened with a kerrison helping to further decompress the S1 nerve. Wound is then irrigated copiously with saline and surgiflo is used to stop any bleeding. The tubular retractor is removed and the wound is closed with vicryl and monocryl suture. Glue is then used to protect the wound. A sterile dressing is then placed. Patient was then placed in the supine position and transferred to the PACU in stable condition.
[2022-11-28] MEDS: HYDROmorphone 1 mg/mL INJ 1 mL 0.5 MG IVP (09:25)
[2022-11-28] MEDS: sodium chloride 0.9% 1,000 ML 100 ML IV (09:58)
--- NOTE | 2022-11-28 10:24 | PC.NURSE ---
Pulse rate drops below 50. Patient has pain 7/10. Moved patient and HR increases.
[2022-11-28] MEDS: HYDROcodone-acetaminophen 10-325 mg Tablet 1 TAB PO (10:36)
[2022-11-28 11:33] LABS: Glucose Point of Care 121 mg/dL (70-110)
--- NOTE | 2022-11-28 16:09 | ANE.PACU2 ---
Inpatient post-anesthesia follow up: Airway intact: Yes Vital signs: Temperature 95.9 F Pulse Rate 52 Respiratory Rate 12 Blood Pressure 164/70 Pulse Oximetry 97 Oxygen Delivery Me thod Room Air Oxygen Flow Rate 6 Fraction of Inspir ed Oxygen Hydration adequate: Yes Nausea and vomiting: No Pain level: 1 Mental status: Baseline
== END 2022-11-28 11:10 | disposition home or self-care (01) ==
PROVIDERS: PCP Obstetrics & Gynecology; Visit Provider Orthopaedic Surgery
PROC: (CPT 63005; principal; 2022-11-28 07:00)
DX: M48.062 Spinal stenosis, lumbar region with neurogenic claudication; K21.9 Gastro-esophageal reflux disease without esophagitis; I10 Essential (primary) hypertension; E11.40 Type 2 diabetes mellitus with diabetic neuropathy, unspecified; E78.5 Hyperlipidemia, unspecified; E66.01 Morbid (severe) obesity due to excess calories; Z68.42 Body mass index [BMI] 45.0-49.9, adult; Z79.84 Long term (current) use of oral hypoglycemic drugs; Z79.891 Long term (current) use of opiate analgesic
CPT/HCPCS: 63047; 63048; 36416; 72100; 76000; 82962; J0690; J1100; J1170; J2405; J2704; J3010; J3490; J7030

== ENCOUNTER → 2022-12-11 10:48 | Outpatient (BNVA) | payer MEDICARE, MEDICAID, SELFPAY | PROVIDERS: PCP Obstetrics & Gynecology; Visit Provider Orthopaedic Surgery | DX: Z47.89 Encounter for other orthopedic aftercare (principal) | CPT/HCPCS: 99024 ==

== ENCOUNTER → 2023-01-06 10:45 | Outpatient (BNVA) | payer MEDICARE, MEDICAID, SELFPAY | PROVIDERS: PCP Obstetrics & Gynecology; Visit Provider Orthopaedic Surgery | DX: Z48.89 Encounter for other specified surgical aftercare (principal) | CPT/HCPCS: 99024 ==

== ENCOUNTER → 2023-01-15 11:12 | Outpatient (BNVA) | payer MEDICARE, MEDICAID, SELFPAY | PROVIDERS: PCP Obstetrics & Gynecology; Visit Provider Podiatrist Foot & Ankle Surgery | DX: M21.371 Foot drop, right foot (principal); M19.071 Primary osteoarthritis, right ankle and foot; E11.9 Type 2 diabetes mellitus without complications | CPT/HCPCS: 73630; 99204 ==

== ENCOUNTER → 2023-03-19 09:45 | Outpatient (BNVA) | payer MEDICARE, MEDICAID, SELFPAY | PROVIDERS: PCP Obstetrics & Gynecology; Visit Provider Orthopaedic Surgery | DX: M48.062 Spinal stenosis, lumbar region with neurogenic claudication | CPT/HCPCS: 36415; 80053; 85025; 99024; 99212; 99214 ==

== ENCOUNTER → 2023-06-02 08:39 | Outpatient (BNVA) | payer MEDICARE, MEDICAID, SELFPAY | PROVIDERS: PCP Obstetrics & Gynecology; Visit Provider Orthopaedic Surgery | DX: Z47.89 Encounter for other orthopedic aftercare (principal); M21.371 Foot drop, right foot; M19.071 Primary osteoarthritis, right ankle and foot; E11.9 Type 2 diabetes mellitus without complications; Z79.84 Long term (current) use of oral hypoglycemic drugs | CPT/HCPCS: 99213 ==

== ENCOUNTER → 2023-09-07 12:46 | Outpatient (BNVA) | payer MEDICARE, MEDICAID, SELFPAY | PROVIDERS: PCP Obstetrics & Gynecology; Visit Provider Podiatrist Foot & Ankle Surgery | DX: L60.3 Nail dystrophy (principal); M21.371 Foot drop, right foot; M19.071 Primary osteoarthritis, right ankle and foot; G62.9 Polyneuropathy, unspecified; M79.89 Other specified soft tissue disorders; E11.42 Type 2 diabetes mellitus with diabetic polyneuropathy | CPT/HCPCS: 11721; 99213 ==

== ENCOUNTER 2023-09-30 07:15 | Day surgery (SDC) | payer MEDICARE, SELFPAY ==
[2023-09-30] VITALS (11 sets, daily range): BP systolic 105–142; BP diastolic 61–76; PULSE 54–64; RESP 8–18; TEMP 36.2–36.6; O2SAT 92–98; BMI 46.6
[2023-09-30] MEDS: acetaminophen 1,000 MG/100 ML PIGGYBACK 400 MG IV (07:54)
[2023-09-30] MEDS: sodium chloride 0.9% 1,000 ML 30 ML IV (07:54)
[2023-09-30] MEDS: gabapentin 300 mg Capsule PO (07:54)
--- NOTE | 2023-09-30 07:55 | ANES.PREANE2 ---
Pre-Anesthetic Assessment Height/Weight: Height 1.57 m Weight 115.666 kg Pulse Resp Pulse Ox O2 Del Method 55 L 18 97 Room Air 09/30/23 07:46 09/30/23 07:46 09/30/23 07:46 09/30/23 07:47 Preop Diagnosis: Soft tissue mass Operation Date: 09/30/23 09:05 Proposed Procedures p CPT code 94217, ?Lipoma left ankle D17.9, ?Excision soft tissue mass left ankle greater than 1.5cm(Left) - Jakob Romero DPM Familial anesthetic complications: None Was Beta Rao taken within 24 hours: Yes Was Clonidine taken within 24 hours: N/A Last intake: Intake Last Liquid Date 09/29/23 Last Liquid Time 22:00 Last Solid Date 09/29/23 Last Solid Time 22:00 Social No alcohol and No tobacco Exam alert, oriented x 3, clear to auscultation bilaterally and regular rate & rhythm Airway Mallampati: Class II Dentition: partials CV/HEM Hypertension GI Gastroesophageal Reflux Disease Metabolic Diabetes Mellitus, Hyperlipidemia and Morbid Obesity abdominal obesity, large pannus Anesthetic Plan ASA status: 3 Anesthesia: MAC Risk of > 500 ml blood loss (7ml/kg in children): No Medications/Allergies Home Medications Medication Instructions Recorded Confirmed Last Taken Type atenolol 50 mg tablet 50 mg PO DAILY 09/06/20 09/29/23 09/29/23 History fluticasone propionate 50 1 spray intranasal DAILY 09/06/20 09/29/23 11/27/22 History mcg/actuation nasal spray,suspension glipizide 5 mg tablet 2.5 mg PO BEDTIME 09/06/20 09/29/23 1 Day Ago History ~09/28/23 hydrochlorothiazide 50 mg tablet 50 mg PO DAILY 09/06/20 09/29/23 09/29/23 History hydrocodone 10 mg-acetaminophen 1 tab PO Q6H PRN Pain 09/06/20 09/29/23 11/28/22 04:15 History 325 mg tablet isosorbide mononitrate 30 mg 30 mg PO DAILY 09/06/20 09/29/23 09/29/23 History tablet,extended release 24 hr lisinopril 40 mg tablet 40 mg PO DAILY 09/06/20 09/29/23 09/29/23 History omeprazole 40 mg capsule,delayed 40 mg PO DAILY 09/06/20 09/29/23 11/21/22 History release oxybutynin chloride 5 mg tablet 5 mg PO BID 09/06/20 09/29/23 09/29/23 History potassium chloride 20 mEq 20 meq PO BID 09/06/20 09/29/23 09/29/23 History tablet,extended release(part/cryst) (Klor-Con M) pravastatin 20 mg tablet 20 mg PO DAILY 09/06/20 09/29/23 09/29/23 History pseudoephedrine HCl 30 mg tablet 30 mg PO Q6H PRN Allergy Symptoms 09/06/20 09/29/23 11/21/22 History ajsjxlhqtgfp-elrbmzeg-olnggc 1 tab PO BEDTIME 10/16/21 09/29/23 11/27/22 History tablet (Multivitamin 50 Plus tablet) sennosides 8.6 mg tablet (senna) 8.6 mg PO DAILY PRN Constipation 10/16/21 09/29/23 11/20/22 History pregabalin 300 mg capsule 300 mg PO BID Neuropathy 11/17/22 09/29/23 09/29/23 History sertraline 100 mg tablet 100 mg PO DAILY Depression 11/17/22 09/29/23 09/29/23 History AFO brace #1 ea 01/15/23 09/07/23 Unknown Rx Articulating AFO or similar #1 ea 01/29/23 09/07/23 Unknown Rx sulfasalazine 500 mg tablet 1 g (2 x 500 mg) PO BID #360 tabs 08/10/23 09/29/23 09/29/23 Rx diabetic shoes with 3 inserts #1 ea 09/07/23 09/07/23 Unknown Rx ketoconazole 2 % topical cream 1 applic topical BID #30 grams 09/29/23 Unknown Rx Allergies Allergy/AdvReac Type Severity Reaction Status Date / Time morphine Allergy ADR-Headach Verified 09/29/23 08:32 e Current Medications Generic Name Dose Route Start Last Admin Trade Name Freq PRN Reason Stop Dose Admin Sodium Chloride 1,000 mls @ 30 mls/hr 09/30/23 07:30 09/30/23 07:54 Sodium Chloride 0.9% IV 10/01/23 07:29 30 mls/hr .Q24H MONICA Administration PFSH Anesthesia Medical History Hyperlipidemia Type 2 diabetes mellitus without complications Essential hypertension Surgical History History of History of hernia repair History of cholecystectomy History of rotator cuff surgery History of knee replacement, total History of removal of cyst Family History Mother Stroke Hypertension Family history of premature coronary artery disease Diabetes Cancer CAD (coronary artery disease) Rheumatoid arthritis Father Hypertension Diabetes CAD (coronary artery disease) Family/Other Lupus Social History Smoking and tobacco/nicotine status: never used tobacco/nicotine Second hand smoke exposure: No Alcohol intake: never Substance/Drug Use: never Lives independently: Yes Data Anesthesia Cardiac Studies: No Data to Display
[2023-09-30 08:08] LABS: Glucose Point of Care 108 mg/dL (70-110)
--- NOTE | 2023-09-30 08:44 | W.PM.OPSUD ---
Surgery/Procedure H&P Update DATE OF PROCEDURE: September 30, 2023 DATE H&P PERFORMED: 09/07/23 H&P UPDATE INFORMATION: I have reviewed H&P completed within last 30 days, I have examined patient prior to procedure, No changes to prior documentation and H&P is in [facility] EMR on date indicated PREOP DIAGNOSIS: Soft tissue mass PLANNED PROCEDURE: Operation Date: 09/30/23 09:05 Proposed Procedures p CPT code 38466, ?Lipoma left ankle D17.9, ?Excision soft tissue mass left ankle greater than 1.5cm(Left) - Jakob Romero DPM
[2023-09-30] MEDS: ceFAZolin 2,000 MG in sodium chloride 0.9% (plus) 50 ML 100 MG IV (08:51)
[2023-09-30] MEDS: BUPivacaine 0.5% INJ 30 mL XX (09:14)
--- NOTE | 2023-09-30 09:36 | P.BOP_ITS ---
Date of procedure: 09/30/2023 Surgeon name: Dr. Jakob Romero D.P.M. Cruise Coordinator(s) name(s): Sosa Procedure(s) performed: Soft tissue mass excision left ankle Description of findings: Lipomatous soft tissue mass left ankle Estimated blood loss: 5 cc Tourniquet time: 22 minutes Specimen(s) removed: Soft tissue mass left ankle Post-operative diagnosis: Lipoma left ankle
--- NOTE | 2023-09-30 09:36 | PM.OP ---
Operative Report Date of procedure: September 30, 2023 Pre-op diagnosis: Soft tissue mass left ankle Post-op diagnosis: Lipoma left ankle Post-op findings: Large lipoma left ankle measuring 3.5 x 4.0 cm Procedure done: Excision soft tissue mass left ankle CPT 13864 Pathology: Soft tissue mass left ankle sent to pathology as surgical specimen Surgeon: Jakob Romero DPM Thermal Cutting Machine Operator: Sosa 22 minutes Complications: None Findings: See above Procedure: Patient is a 63-year-old female that has a history of left ankle soft tissue mass. The patient has had the aforementioned chief complaint for some time. Conservative treatment measures have been attempted and the patient has opted for surgical intervention at this time. A lengthy discussion regarding the procedure, including risks and complications has been had with the patient and is noted in the recent clinic note. Written and verbal consent have been obtained. All patient questions have been answered to the patient?s satisfaction. No written or verbal guarantees have been given or implied. The patient has been NPO since midnight. The history has been reviewed and the history and physical is current. The signed consent was confirmed and placed in the patient chart. Patient imaging has been reviewed and is consistent with the diagnosis. Under mild sedation, the patient was brought into the operating room and placed on the table in the supine position. IV antibiotics were given by the anesthesia team as preoperative surgical prophylaxis. General sedation was then performed by the anesthesiateam. A local field block was then performed using 0.5% Marcaine plain A pneumatic tourniquet was then placed about the left thigh. The operative extremity was then prepped and draped in the usual fashion. The extremity was then elevated and exsanguinated before the tourniquet was inflated to 325 mmHg. After inflation, the following procedure was then performed. Attention was directed to the lateral ankle where a 5 cm incision was made overlying soft tissue mass. Dissection was carried down through subcutaneous and superficial fascia using a #15 blade. Care was taken to avoid adjacent neurovascular structures. These were identified and retracted out of the operative field. Dissection was carried down to level of deep fascia where the soft tissue mass was noted to be associated with a sinus tarsi. This had the appearance of a large lipoma with yellowish lobulated discoloration, benign in appearance. Careful dissection was carried out circumferentially around the soft tissue mass and was passed from the operative field as specimen. The site was examined and no further soft tissue mass remained. Site was then irrigated with copious amounts sterile saline. Deep tissue was closed with 3-0 Vicryl followed by subcuticular closure with 4-0 Vicryl and skin closure with 3-0 nylon in horizontal mattress fashion. The tourniquet was let down and good hyperemic response was noted to all digits of the left foot. The incision was dressed with Xeroform, 4 x 4 gauze, Kerlix, Jacoby. Patient was placed in a postop shoe. The patient tolerated the procedure and anesthesia well and without complication. The patient was transported from the operating room to the recovery room with vital signs stable and vascular status intact to all digits of the left foot. The patient was given both written and verbal instructions to remain weightbearing as tolerated in postop shoe to the operative extremity, to keep dressings/splint clean, dry and intact and to take pain medication as directed. The patient will follow-up in the outpatient setting at their scheduled appointment. The patient was discharged with my personal number and was instructed to call if any questions or issues should arise. They were discharged home once anesthesia criteria was met.
[2023-09-30] MEDS: HYDROcodone-acetaminophen 5-325 mg Tablet 1 TAB PO (10:36)
--- NOTE | 2023-09-30 11:00 | ANE.PACU2 ---
Inpatient post-anesthesia follow up: Airway intact: Yes Vital signs: Temperature 97.2 F Pulse Rate 59 Respiratory Rate 16 Blood Pressure 111/64 Pulse Oximetry 96 Oxygen Delivery Me thod Room Air Oxygen Flow Rate 8 Fraction of Inspir ed Oxygen Hydration adequate: Yes Nausea and vomiting: No Pain level: 1 Mental status: Baseline
== END 2023-09-30 11:00 | disposition home or self-care (01) ==
PROVIDERS: PCP Obstetrics & Gynecology; Visit Provider Podiatrist Foot & Ankle Surgery
PROC: (CPT 28039; principal; 2023-09-30 08:55)
DX: D17.39 Benign lipomatous neoplasm of skin and subcutaneous tissue of other sites (principal); I10 Essential (primary) hypertension; K21.9 Gastro-esophageal reflux disease without esophagitis; E11.42 Type 2 diabetes mellitus with diabetic polyneuropathy; E78.5 Hyperlipidemia, unspecified; E66.01 Morbid (severe) obesity due to excess calories; Z68.42 Body mass index [BMI] 45.0-49.9, adult; L60.3 Nail dystrophy; M21.371 Foot drop, right foot; M19.071 Primary osteoarthritis, right ankle and foot
CPT/HCPCS: 28039; 36416; 82962; 88307; J0131; J0690; J1100; J2405; J2704; J3010; J3490; J7030

== ENCOUNTER → 2023-10-07 13:17 | Outpatient (BNVA) | payer MEDICARE, SELFPAY | PROVIDERS: PCP Obstetrics & Gynecology; Visit Provider Podiatrist Foot & Ankle Surgery | DX: E11.42 Type 2 diabetes mellitus with diabetic polyneuropathy (principal); L60.3 Nail dystrophy; M79.89 Other specified soft tissue disorders; M21.371 Foot drop, right foot; M19.071 Primary osteoarthritis, right ankle and foot; G62.9 Polyneuropathy, unspecified | CPT/HCPCS: 99024; A6219; A6222 ==

== ENCOUNTER → 2023-10-14 14:34 | Outpatient (BNVA) | payer MEDICARE, SELFPAY | PROVIDERS: PCP Obstetrics & Gynecology; Visit Provider Podiatrist Foot & Ankle Surgery | DX: M79.89 Other specified soft tissue disorders (principal); L60.3 Nail dystrophy; M21.371 Foot drop, right foot; M19.071 Primary osteoarthritis, right ankle and foot; G62.9 Polyneuropathy, unspecified; E11.42 Type 2 diabetes mellitus with diabetic polyneuropathy | CPT/HCPCS: 99024 ==

== ENCOUNTER → 2023-10-28 14:55 | Outpatient (BNVA) | payer MEDICARE, SELFPAY | PROVIDERS: PCP Obstetrics & Gynecology; Visit Provider Podiatrist Foot & Ankle Surgery | DX: Z98.890 Other specified postprocedural states (principal); M79.89 Other specified soft tissue disorders; L60.3 Nail dystrophy; M21.371 Foot drop, right foot; M19.071 Primary osteoarthritis, right ankle and foot; E11.9 Type 2 diabetes mellitus without complications; G62.9 Polyneuropathy, unspecified | CPT/HCPCS: 99024 ==

== ENCOUNTER → 2023-11-09 14:03 | Outpatient (BNVA) | payer MEDICARE, SELFPAY | PROVIDERS: PCP Obstetrics & Gynecology; Visit Provider Podiatrist Foot & Ankle Surgery | DX: L60.3 Nail dystrophy (principal); M21.371 Foot drop, right foot; M19.071 Primary osteoarthritis, right ankle and foot; G62.9 Polyneuropathy, unspecified; E11.42 Type 2 diabetes mellitus with diabetic polyneuropathy | CPT/HCPCS: 11721 ==

== ENCOUNTER → 2023-12-01 15:50 | Outpatient (BNVA) | payer MEDICARE, SELFPAY | PROVIDERS: PCP Obstetrics & Gynecology; Visit Provider Orthopaedic Surgery | DX: Z98.1 Arthrodesis status (principal); M48.062 Spinal stenosis, lumbar region with neurogenic claudication | CPT/HCPCS: 72100; 99213 ==

== ENCOUNTER 2023-12-01 16:29 | Outpatient (CLI) | payer MEDICARE, SELFPAY ==
[2023-12-01 17:52] LABS: Basophils % 0.5 %; Eosinophils # 0.1 10^3/uL (0.0-0.8); Eosinophils % 1.4 %; Hematocrit 36.3 % (36-47); Lymphocytes # 2.4 10^3/uL (0.8-4.8); Lymphocytes % 28.7 %; Mean Corpuscular HGB Conc 32.8 g/dL (30-55); Mean Corpuscular Hemoglobin 28.5 pg (27-33); Mean Corpuscular Volume 86.8 fl (85-98); Mean Platelet Volume 10.1 fL (7.4-10.4); Monocytes # 0.7 10^3/uL (0.2-0.9); Monocytes % 8.6 %; Neutrophils # 4.99 10^3/uL (1.8-7.7); Neutrophils % 60.3 %; Nucleated Red Blood Cells % 0 %; Platelet Count 252 10^3/cmm (157-399); Red Blood Count 4.18 10^6/uL (3.85-5.65); Red Cell Distribution Width 13.3 % (12.1-15.1); White Blood Count 8.28 10^3/uL (3.29-11.43)
[2023-12-01 17:55] LABS: Erythrocyte Sedimentation Rate 18 mm/hr (0-15)
[2023-12-01 18:17] LABS: Alanine Aminotransferase 19 U/L (0-33); Albumin Level 4.3 g/dL (3.5-5.2); Alkaline Phosphatase 70 U/L (35-105); Aspartate Amino Transferase 19 U/L (0-32); C Reactive Protein 5.5 mg/L (0.0-4.9); Glomerular Filtration Rate 72.9 mL/min (90-130); Total Bilirubin 0.2 mg/dL (0.15-1.2); Total Protein 7.3 g/dL (6.6-8.7)
[2023-12-01 21:14] LABS: Hepatitis B Core AB, Total Non-Reactive (Nonreactive); Hepatitis B Surface Antigen Non-Reactive (Nonreactive)
[2023-12-02 04:24] LABS: Hepatitis C Virus Antibody Non-Reactive (Nonreactive)
== END 2023-12-01 16:30 | disposition home or self-care (01) ==
PROVIDERS: PCP Obstetrics & Gynecology; Visit Provider Internal Medicine Rheumatology
DX: Z79.899 Other long term (current) drug therapy (principal); R76.8 Other specified abnormal immunological findings in serum
CPT/HCPCS: 36415; 80076; 82565; 85025; 85651; 86140; 86704; 86803; 87340

== ENCOUNTER → 2023-12-17 14:33 | Outpatient (BNVA) | payer MEDICARE, SELFPAY | PROVIDERS: PCP Obstetrics & Gynecology; Visit Provider Internal Medicine Rheumatology | DX: M25.50 Pain in unspecified joint (principal); R76.8 Other specified abnormal immunological findings in serum; M19.90 Unspecified osteoarthritis, unspecified site; M47.816 Spondylosis without myelopathy or radiculopathy, lumbar region; Z79.899 Other long term (current) drug therapy; Z71.85 Encounter for immunization safety counseling | CPT/HCPCS: 99214 ==

== ENCOUNTER → 2024-01-04 14:02 | Outpatient (BNVA) | payer MEDICARE, SELFPAY | PROVIDERS: PCP Obstetrics & Gynecology; Visit Provider Podiatrist Foot & Ankle Surgery | DX: L60.3 Nail dystrophy; M21.371 Foot drop, right foot; M19.071 Primary osteoarthritis, right ankle and foot; E11.42 Type 2 diabetes mellitus with diabetic polyneuropathy; G62.9 Polyneuropathy, unspecified | CPT/HCPCS: 11721; 20550; J1100; J3301 ==

== ENCOUNTER → 2024-01-12 08:53 | Outpatient (BNVA) | payer MEDICARE, SELFPAY | PROVIDERS: PCP Obstetrics & Gynecology; Visit Provider Orthopaedic Surgery | DX: Z98.1 Arthrodesis status (principal) | CPT/HCPCS: 72100; 99213 ==

== ENCOUNTER 2024-01-12 09:42 | Outpatient (CLI) | payer MEDICARE, SELFPAY ==
[2024-01-12 10:50] LABS: Basophils # 0.1 10^3/uL (0.0-0.1); Basophils % 0.6 %; Eosinophils # 0.1 10^3/uL (0.0-0.8); Eosinophils % 1.3 %; Hematocrit 38.4 % (36-47); Lymphocytes # 1.9 10^3/uL (0.8-4.8); Lymphocytes % 20.6 %; Mean Corpuscular HGB Conc 33.1 g/dL (30-55); Mean Corpuscular Hemoglobin 28.7 pg (27-33); Mean Corpuscular Volume 86.7 fl (85-98); Mean Platelet Volume 9.7 fL (7.4-10.4); Monocytes # 0.7 10^3/uL (0.2-0.9); Monocytes % 7.4 %; Neutrophils # 6.48 10^3/uL (1.8-7.7); Neutrophils % 69.8 %; Nucleated Red Blood Cells % 0 %; Platelet Count 238 10^3/cmm (157-399); Red Blood Count 4.43 10^6/uL (3.85-5.65); Red Cell Distribution Width 13.6 % (12.1-15.1); White Blood Count 9.29 10^3/uL (3.29-11.43)
[2024-01-12 11:06] LABS: Alanine Aminotransferase 11 U/L (0-33); Albumin Level 3.9 g/dL (3.5-5.2); Alkaline Phosphatase 73 U/L (35-105); Aspartate Amino Transferase 12 U/L (0-32); Glomerular Filtration Rate 125.4 mL/min (90-130); Total Bilirubin 0.4 mg/dL (0.15-1.2); Total Protein 6.9 g/dL (6.6-8.7)
== END 2024-01-12 09:43 | disposition home or self-care (01) ==
LOC: LAB 09:43
PROVIDERS: PCP Obstetrics & Gynecology; Visit Provider Internal Medicine Rheumatology
DX: M25.50 Pain in unspecified joint (principal); R76.8 Other specified abnormal immunological findings in serum
CPT/HCPCS: 36415; 80076; 82565; 85025; 86140

== ENCOUNTER → 2024-02-23 08:08 | Outpatient (BNVA) | payer MEDICARE, SELFPAY | PROVIDERS: PCP Obstetrics & Gynecology; Visit Provider Orthopaedic Surgery | DX: Z98.1 Arthrodesis status (principal) | CPT/HCPCS: 72100; 99213 ==

== ENCOUNTER → 2024-04-18 09:18 | Outpatient (BNVA) | payer MEDICARE, SELFPAY | PROVIDERS: PCP Obstetrics & Gynecology; Visit Provider Internal Medicine Rheumatology | DX: M19.90 Unspecified osteoarthritis, unspecified site (principal); M47.816 Spondylosis without myelopathy or radiculopathy, lumbar region; R76.8 Other specified abnormal immunological findings in serum; Z79.899 Other long term (current) drug therapy; Z71.85 Encounter for immunization safety counseling; Z98.1 Arthrodesis status; Z96.652 Presence of left artificial knee joint; Z11.1 Encounter for screening for respiratory tuberculosis; Z11.59 Encounter for screening for other viral diseases | CPT/HCPCS: 11721; 20605; 36415; 80076; 82565; 85025; 85651; 86140; 99214; J1100; J3301 ==

== ENCOUNTER → 2024-06-14 15:28 | Outpatient (BNVA) | payer MEDICARE, SELFPAY | PROVIDERS: PCP Obstetrics & Gynecology; Visit Provider Orthopaedic Surgery | DX: Z98.1 Arthrodesis status (principal) | CPT/HCPCS: 99213 ==

== ENCOUNTER → 2024-07-11 15:14 | Outpatient (BNVA) | payer MEDICARE, SELFPAY | PROVIDERS: PCP Obstetrics & Gynecology; Visit Provider Podiatrist Foot & Ankle Surgery | DX: L60.3 Nail dystrophy (principal); M21.371 Foot drop, right foot; M19.071 Primary osteoarthritis, right ankle and foot; E11.42 Type 2 diabetes mellitus with diabetic polyneuropathy; G62.9 Polyneuropathy, unspecified | CPT/HCPCS: 11721 ==

== ENCOUNTER → 2024-09-05 14:11 | Outpatient (BNVA) | payer MEDICARE, SELFPAY | PROVIDERS: PCP Obstetrics & Gynecology; Visit Provider Internal Medicine Rheumatology | DX: R76.8 Other specified abnormal immunological findings in serum (principal); M19.90 Unspecified osteoarthritis, unspecified site; M47.816 Spondylosis without myelopathy or radiculopathy, lumbar region; Z79.899 Other long term (current) drug therapy; Z71.85 Encounter for immunization safety counseling | CPT/HCPCS: 99214 ==

== ENCOUNTER → 2024-09-13 16:08 | Outpatient (BNVA) | payer MEDICARE, SELFPAY | PROVIDERS: PCP Obstetrics & Gynecology; Visit Provider Orthopaedic Surgery | DX: M54.50 Low back pain, unspecified (principal) | CPT/HCPCS: 72100; 99213 ==

== ENCOUNTER 2024-10-17 12:35 | Outpatient (CLI) | payer OTHER, SELFPAY ==
[2024-10-17 13:15] LABS: Basophils % 0.5 %; Eosinophils # 0.2 10^3/uL (0.0-0.8); Eosinophils % 2.6 %; Hematocrit 36.5 % (36-47); Lymphocytes # 1.6 10^3/uL (0.8-4.8); Lymphocytes % 26.9 %; Mean Corpuscular HGB Conc 31.8 g/dL (30-55); Mean Corpuscular Hemoglobin 29.7 pg (27-33); Mean Corpuscular Volume 93.6 fl (85-98); Mean Platelet Volume 9.7 fL (7.4-10.4); Monocytes # 0.5 10^3/uL (0.2-0.9); Monocytes % 7.7 %; Neutrophils # 3.63 10^3/uL (1.8-7.7); Neutrophils % 61.8 %; Nucleated Red Blood Cells % 0 %; Platelet Count 197 10^3/cmm (157-399); Red Cell Distribution Width 13.8 % (12.1-15.1); White Blood Count 5.87 10^3/uL (3.29-11.43)
[2024-10-17 13:22] LABS: Erythrocyte Sedimentation Rate 10 mm/hr (0-15)
[2024-10-17 13:41] LABS: Alanine Aminotransferase 22 U/L (0-33); Alkaline Phosphatase 82 U/L (35-105); Aspartate Amino Transferase 17 U/L (0-32); C Reactive Protein 3.2 mg/L (0.0-4.9); Globulin 2.6 g/dL (1.3-4.6); Glomerular Filtration Rate 161.7 mL/min (90-130); Total Bilirubin 0.2 mg/dL (0.15-1.2); Total Protein 6.6 g/dL (6.6-8.7)
== END 2024-10-17 12:36 | disposition home or self-care (01) ==
LOC: LAB 12:36
PROVIDERS: PCP Obstetrics & Gynecology; Visit Provider Internal Medicine Rheumatology
DX: Z79.899 Other long term (current) drug therapy (principal); M06.00 Rheumatoid arthritis without rheumatoid factor, unspecified site
CPT/HCPCS: 80076; 82565; 83520; 85025; 85651; 86140

== ENCOUNTER → 2025-01-02 13:20 | Outpatient (BNVA) | payer OTHER, SELFPAY | PROVIDERS: PCP Obstetrics & Gynecology; Visit Provider Internal Medicine Rheumatology | DX: R76.8 Other specified abnormal immunological findings in serum (principal); M47.816 Spondylosis without myelopathy or radiculopathy, lumbar region; Z79.899 Other long term (current) drug therapy; Z71.85 Encounter for immunization safety counseling; M06.041 Rheumatoid arthritis without rheumatoid factor, right hand; M06.042 Rheumatoid arthritis without rheumatoid factor, left hand | CPT/HCPCS: 99214 ==

== ENCOUNTER → 2025-01-16 12:43 | Outpatient (BNVA) | payer OTHER, SELFPAY | PROVIDERS: PCP Obstetrics & Gynecology; Visit Provider Podiatrist Foot & Ankle Surgery | DX: E11.42 Type 2 diabetes mellitus with diabetic polyneuropathy (principal); L60.3 Nail dystrophy; M19.071 Primary osteoarthritis, right ankle and foot; M21.371 Foot drop, right foot; G62.9 Polyneuropathy, unspecified | CPT/HCPCS: 11721; 20605; 99214; J1100; J3301; J9999 ==

== ENCOUNTER 2025-01-23 12:10 | Outpatient (CLI) | payer OTHER, SELFPAY ==
--- NOTE | 2025-01-23 12:19 | MR_ITS ---
WS: [id number] MRI LUMBAR SPINE NONCONTRAST HISTORY: RADICULOPATHY,THORACOLUMBAR REGION/LUMBAR POST LAMINECTOMY COMPARISON: 10/06/2022 TECHNIQUE: Sagittal and axial multisequence imaging is submitted. Mild increase in the lumbar lordosis, similar to the prior study. Prior posterior lumbar fusion at L4-5 with interbody spacer. No acute fracture or marrow edema. Minimal retrolisthesis of L2 and L3. Disc spaces are mildly narrowed and desiccated. Conus terminates normally at L1-2 disc level. L1-L2: Mild bilateral foraminal narrowing. Bilateral facet joint arthritis, RIGHT greater than LEFT. Stenosis has progressed since the prior study from 2022. L2-L3: Diffuse annular disc bulging, mild osteophytic ridging with facet and ligamentum flavum hypertrophy. Moderate central with mild bilateral subarticular recess and foraminal stenosis. Mild progression since the prior study. L3-L4: Annular disc bulging with osteophytic ridging. Mild central and bilateral foraminal stenosis. Narrowing of the subarticular recesses bilaterally. L4-L5: Patulous thecal sac. Large posterior laminectomy defects. Moderate RIGHT and mild LEFT foraminal stenosis. Minimal progression since the prior study. L5-S1: No stenosis. Mild osteophytic ridging. Paravertebral soft tissues are negative. Mild atrophy of the psoas muscles. MR/MR lumbar spine wo con* [id number] IMPRESSION: 1. Status post posterior lumbar fusion at L4-5 with interbody spacer appears s table. 2. Large laminectomy defect at L4-5 with patulous thecal sac. 3. Mild progression of foraminal stenosis at L1-2 since the prior study. 4. L2-3: Moderate central with bilateral subarticular recess and foraminal omari nosis. Mild progression since the prior study. 5. L3-4: Mild central and bilateral foraminal stenosis. No change. 6. L4-5: Moderate RIGHT and mild LEFT foraminal stenosis with mild progression since the prior study.
--- NOTE | 2025-01-23 12:19 | MR_ITS ---
WS: [id number] MRI THORACIC SPINE noncontrast HISTORY: RADICULOPATHY, THORACOLUMBAR REGION COMPARISON: None available. TECHNIQUE: Multiplanar sequences are performed in sagittal and axial planes. Moderate increase in thoracic kyphosis and LEFT curvature. Prior anterior cervical fusion at C5-6. No marrow edema in the thoracic vertebral bodies. There is very mild anterior wedging of T11. Signal within the cord is normal. T1-2: Normal. T2-3: Mild bilateral facet arthritis. T3-4: Mild facet arthritis. T4-5: Normal. T5-6: Mild LEFT foraminal narrowing and facet arthritis. T6-7: Normal. T7-8: Mild foraminal narrowing and facet arthritis. T8-9: Normal. T9-10: Moderate bilateral foraminal stenosis and facet arthritis. T10-11: Moderate bilateral facet arthritis and foraminal stenosis. Mild central and bilateral foraminal stenosis. T11-12: Osteophytic ridging with disc bulging encroaching upon the thecal sac. Bilateral facet arthritis. Moderate bilateral foraminal stenosis, RIGHT greater than LEFT. MR/MR thoracic spin wo con* [id number] IMPRESSION: 1. No acute thoracic spine fracture. 2. Increase in thoracic kyphosis and scoliosis. 3. T10-11: Mild central with foraminal stenosis due to disc osteophyte disease . 4. T11-12: Mild central with moderate bilateral foraminal stenosis, RIGHT grea ter than LEFT. 5. No signal abnormality within the cord.
== END 2025-01-23 12:11 | disposition home or self-care (01) ==
PROVIDERS: PCP Obstetrics & Gynecology; Visit Provider Student in an Organized Health Care Education/Training Program
DX: M54.15 Radiculopathy, thoracolumbar region (principal); M48.04 Spinal stenosis, thoracic region; M25.78 Osteophyte, vertebrae; Z98.1 Arthrodesis status; M48.061 Spinal stenosis, lumbar region without neurogenic claudication
CPT/HCPCS: 72146; 72148

== ENCOUNTER 2025-01-24 13:51 | Outpatient (CLI) | payer OTHER, SELFPAY ==
[2025-01-24 15:26] LABS: Hematocrit 36.5 % (36-47); Hemoglobin 11.90 g/dL (11.27-16.99); Mean Corpuscular HGB Conc 32.6 g/dL (30-55); Mean Corpuscular Hemoglobin 29.0 pg (27-33); Mean Corpuscular Volume 89.0 fl (85-98); Nucleated Red Blood Cells % 0 %; Platelet Count 222 10^3/cmm (157-399); Red Blood Count 4.10 10^6/uL (3.85-5.65); White Blood Count 7.84 10^3/uL (3.29-11.43)
[2025-01-24 15:52] LABS: Alanine Aminotransferase 18 U/L (0-33); Albumin Level 4.2 g/dL (3.5-5.2); Alkaline Phosphatase 86 U/L (35-105); Aspartate Amino Transferase 15 U/L (0-32); Globulin 2.8 g/dL (1.3-4.6); Total Protein 7.0 g/dL (6.6-8.7)
== END 2025-01-24 13:52 | disposition home or self-care (01) ==
LOC: LAB 13:53
PROVIDERS: PCP Obstetrics & Gynecology; Visit Provider Internal Medicine Rheumatology
DX: Z79.899 Other long term (current) drug therapy (principal)
CPT/HCPCS: 36415; 80076; 82565; 85025; 85651; 86140

== ENCOUNTER → 2025-04-18 15:31 | Outpatient (BNVA) | payer OTHER, SELFPAY | PROVIDERS: PCP Obstetrics & Gynecology; Visit Provider Podiatrist Foot & Ankle Surgery | DX: M25.571 Pain in right ankle and joints of right foot (principal); M19.071 Primary osteoarthritis, right ankle and foot; E11.8 Type 2 diabetes mellitus with unspecified complications; L60.3 Nail dystrophy; M21.371 Foot drop, right foot; E11.42 Type 2 diabetes mellitus with diabetic polyneuropathy; G62.9 Polyneuropathy, unspecified; M20.41 Other hammer toe(s) (acquired), right foot | CPT/HCPCS: 11721; 20600; 20605; 99214; J1100; J3301; J9999 ==

== ENCOUNTER → 2025-05-30 14:23 | Outpatient (BNVA) | payer OTHER, SELFPAY | PROVIDERS: PCP Obstetrics & Gynecology; Visit Provider Podiatrist Foot & Ankle Surgery | DX: E11.8 Type 2 diabetes mellitus with unspecified complications (principal); L60.3 Nail dystrophy; M21.371 Foot drop, right foot; M19.071 Primary osteoarthritis, right ankle and foot; G62.9 Polyneuropathy, unspecified; M20.41 Other hammer toe(s) (acquired), right foot; E11.42 Type 2 diabetes mellitus with diabetic polyneuropathy | CPT/HCPCS: 99214 ==

== ENCOUNTER → 2025-06-26 12:53 | Outpatient (BNVA) | payer OTHER, SELFPAY | PROVIDERS: PCP Obstetrics & Gynecology; Visit Provider Internal Medicine Rheumatology | DX: R76.89 Other specified abnormal immunological findings in serum (principal); M47.816 Spondylosis without myelopathy or radiculopathy, lumbar region; Z79.899 Other long term (current) drug therapy; Z71.85 Encounter for immunization safety counseling; M06.041 Rheumatoid arthritis without rheumatoid factor, right hand; M06.042 Rheumatoid arthritis without rheumatoid factor, left hand; Z98.1 Arthrodesis status | CPT/HCPCS: 36415; 80076; 82306; 82565; 85025; 85651; 86140; 86480; 99214 ==

== ENCOUNTER 2025-07-03 07:17 | Day surgery (SDC) | payer OTHER, SELFPAY ==
--- NOTE | 2025-07-03 | XR_ITS ---
WS: [id number] Right foot, C-arm fluoroscopy views, 07/03/2025 Clinical Data: Right foot third PIPJ arthrodesis Comparison: Right foot, 01/15/2023 Findings: Dr. Romero performed an arthrodesis of the right third toe PIP joint. XR/XR foot RT 2V [id number] Impression: Arthrodesis of right third toe PIP joint.
[2025-07-03 07:42] VITALS: BP 173/69; PULSE 79; RESP 16; TEMP 36.2; O2SAT 93; BMI 44.9
--- NOTE | 2025-07-03 08:28 | W.PM.OPSFHP ---
Same Day Surgery H&P Indication for Procedure/HPI DATE OF PROCEDURE: July 03, 2025 CHIEF COMPLAINT/INDICATIONFOR SURGICAL PROCEDURE: Right foot third toe hammertoe PREOP DIAGNOSIS: right foot hammertoe PLANNED PROCEDURE: Operation Date: 07/03/25 08:55 Proposed Procedures p Right 3rd toe PIPJ arthrodesis(Right) - Jakob Romero DPM s Right 3rd toe FDL to EDL tendon transfer(Right) - Jakob Romero DPM Medications/Allergies* Home Medications ?Medication ?Instructions ?Recorded ?Confirmed ?Type atenolol 50 mg tablet 50 mg PO DAILY 09/06/20 07/03/25 History fluticasone propionate 50 1 spray intranasal DAILY 09/06/20 06/29/25 History mcg/actuation nasal spray,suspension isosorbide mononitrate 30 mg 30 mg PO DAILY 09/06/20 07/03/25 History tablet,extended release 24 hr lisinopril 40 mg tablet 40 mg PO DAILY 09/06/20 07/03/25 History omeprazole 40 mg capsule,delayed 40 mg PO DAILY 09/06/20 07/03/25 History release potassium chloride 20 mEq 20 meq PO BID 09/06/20 07/03/25 History tablet,extended release(part/cryst) (Klor-Con M) pravastatin 20 mg tablet 20 mg PO DAILY 09/06/20 07/03/25 History pseudoephedrine HCl 30 mg tablet 30 mg PO Q6H PRN Allergy Symptoms 09/06/20 06/29/25 History sertraline 100 mg tablet 100 mg PO DAILY Depression 11/17/22 07/03/25 History fluticasone fur. 100 mcg-umeclid 1 inh inhalation DAILY 12/01/23 07/03/25 History 62.5 mcg-vilant 25 mcg inhalat.powder (Trelegy Ellipta) levothyroxine 88 mcg capsule 88 mcg PO DAILY 12/01/23 07/03/25 History tirzepatide 12.5 mg/0.5 mL 12.5 mg SUBCUT .WEEKLY 05/30/25 06/29/25 History subcutaneous pen injector (Edu) hydrocodone 10 mg-acetaminophen 1 tab PO Q4H PRN Pain, Mild 07/03/25 07/03/25 History 325 mg tablet Allergies/Adverse Reactions Allergy/AdvReac Type Severity Reaction Status Date / Time morphine Allergy ADR-Headach Verified 07/03/25 07:32 e diclofenac AdvReac Severe algy-pancre Verified 07/03/25 07:32 atitis methotrexate AdvReac Intermediate ADR-Nausea Verified 07/03/25 07:32 Current Medications: Generic Name Dose Route Start Last Admin Trade Name Freq PRN Reason Stop Dose Admin Sodium Chloride 1,000 mls @ 30 mls/hr 07/03/25 07:30 07/03/25 07:58 Sodium Chloride 0.9% IV 07/04/25 07:29 30 mls/hr .Q24H MONICA Administration Pertinent History/Comorbid Conditions* Medical History (Updated 04/22/25 @ 22:01 by Jakob Romero DPM) Seronegative rheumatoid arthritis of both hands Immunization counseling High risk medication use Degenerative joint disease (DJD) of lumbar spine Inflammatory arthritis Hyperlipidemia Type 2 diabetes mellitus without complications Essential hypertension Surgical History (Updated 11/17/22 @ 16:12 by Gentry Lobo NP) History of History of hernia repair History of cholecystectomy History of rotator cuff surgery History of knee replacement, total History of removal of cyst Family History (Updated 09/06/20 @ 15:21 by Marylu Pool RN) Rheumatoid arthritis Mother Diabetes Mother Father Lupus Family/Other CAD (coronary artery disease) Mother Father Family history of premature coronary artery disease Mother Cancer Mother Hypertension Mother Father Stroke Mother Social History Smoking and tobacco/nicotine status: never used tobacco/nicotine Second hand smoke exposure: No Alcohol intake: never Substance/Drug Use: never Lives independently: Yes Pertinent Exam Findings alert, oriented x 3, clear to auscultation bilaterally, regular rate & rhythm, operative site marked and procedure specific exam findings BELOW IS A FOCUSED LOWER EXTREMITY EXAM GENERAL: A&O x 3 VASCULAR: DP/PT pulses diminished with delayed capillary refill DERMATOLOGICAL: Left ankle incision well healed. Dystrophic discolored nails x 10 with subungual debris. Ruborous digits that are cool to touch with digital hair absent. MUSCULOSKELETAL: Mild tenderness to palpation over the right sinus tarsi region. No edema or erythema. Pain reproduced with inversion and eversion of the right subtalar joint. Hammertoe deformity noted to the right third digit with rigid contracture at the PIP joint consistent with arthritic changes. No other gross deformities noted. 5/5 muscle strength in all quadrants. NEUROLOGICAL: Neurological sensation to the affected foot and ankle is diminished through L4-S1 dermatomes via 10g SWMF, diminished sensation extends proximally to the level of the MTPJ's Recommendations Surgery/Procedure today Coding Level of Care Code Acute Code for Loan Quezada
[2025-07-03] MEDS: ceFAZolin 2,000 mg SDV 2000 MG IVP (08:45)
--- NOTE | 2025-07-03 08:51 | ANES.PREANE2 ---
Pre-Anesthetic Assessment Height/Weight: Height 5 ft 2 in Weight 246 lb Temp Pulse Resp BP Pulse Ox O2 Del Method 97.2 F L 79 16 173/69 93 Room Air 07/03/25 07:42 07/03/25 07:42 07/03/25 07:42 07/03/25 07:42 07/03/25 07:42 07/03/25 07:42 Preop Diagnosis: right foot hammertoe Operation Date: 07/03/25 08:55 Proposed Procedures p Right 3rd toe PIPJ arthrodesis(Right) - Jakob Romero DPM s Right 3rd toe FDL to EDL tendon transfer(Right) - Jakob Romero DPM Last intake: Intake Last Liquid Date 07/02/25 Last Liquid Time 22:30 Last Solid Date 07/02/25 Last Solid Time 22:30 Social No alcohol and No tobacco Exam alert, oriented x 3 and regular rate & rhythm Diminished breath sounds throughout Airway Submandibular: within normal limits Cervical ROM: within normal limits Mallampati: Class III Dentition: full Anesthetic Plan ASA status: 3 Anesthesia: MAC Other: No prior issues with anesthesia NPO since yesterday evening History of hypertension on lisinopril and atenolol History of RA Type 2 diabetes, on tirzepatide. Last taken 06/19/2025 S/p lumbar fusion Labs reviewed 06/26/2025 and acceptable for procedure Plan for MAC anesthesia with local via surgeon Medications/Allergies Home Medications ?Medication ?Instructions ?Recorded ?Confirmed ?Last Taken ?Type atenolol 50 mg tablet 50 mg PO DAILY 09/06/20 07/03/25 07/03/25 History fluticasone propionate 50 1 spray intranasal DAILY 09/06/20 06/29/25 06/29/25 History mcg/actuation nasal spray,suspension isosorbide mononitrate 30 mg 30 mg PO DAILY 09/06/20 07/03/25 07/02/25 History tablet,extended release 24 hr lisinopril 40 mg tablet 40 mg PO DAILY 09/06/20 07/03/25 07/02/25 History omeprazole 40 mg capsule,delayed 40 mg PO DAILY 09/06/20 07/03/25 07/02/25 History release potassium chloride 20 mEq 20 meq PO BID 09/06/20 07/03/25 07/02/25 History tablet,extended release(part/cryst) (Klor-Con M) pravastatin 20 mg tablet 20 mg PO DAILY 09/06/20 07/03/25 07/02/25 History pseudoephedrine HCl 30 mg tablet 30 mg PO Q6H PRN Allergy Symptoms 09/06/20 06/29/25 09/30/23 History sertraline 100 mg tablet 100 mg PO DAILY Depression 11/17/22 07/03/25 07/02/25 History AFO brace #1 ea 01/15/23 05/30/25 Unknown Rx Articulating AFO or similar #1 ea 01/29/23 05/30/25 Unknown Rx diabetic shoes with 3 inserts #1 ea 09/07/23 05/30/25 Unknown Rx fluticasone fur. 100 mcg-umeclid 1 inh inhalation DAILY 12/01/23 07/03/25 07/03/25 History 62.5 mcg-vilant 25 mcg inhalat.powder (Trelegy Ellipta) levothyroxine 88 mcg capsule 88 mcg PO DAILY 12/01/23 07/03/25 07/03/25 History prednisone 10 mg tablet See Rx Instructions PO .COMPLEX 01/02/25 06/29/25 Unknown Rx PRN joint pain #30 tabs tirzepatide 12.5 mg/0.5 mL 12.5 mg SUBCUT .WEEKLY 05/30/25 06/29/25 06/19/25 History subcutaneous pen injector (Mounjaro) gabapentin 300 mg capsule 900 mg (3 x 300 mg) PO TID 30 days 06/07/25 06/29/25 06/29/25 Rx #270 caps adalimumab 40 mg/0.4 mL 40 mg (0.4 mL) SUBCUT Q14D #2 ea 06/26/25 06/29/25 Unknown Rx subcutaneous pen kit (Humira(CF) Pen) sulfasalazine 500 mg tablet 1 g (2 x 500 mg) PO BID #360 tabs 06/26/25 07/03/25 07/02/25 Rx hydrocodone 10 mg-acetaminophen 1 tab PO Q4H PRN Pain, Mild 07/03/25 07/03/25 07/03/25 History 325 mg tablet hydrocodone 5 mg-acetaminophen 325 1 tab PO Q6H PRN pain #16 tabs 07/03/25 Unknown Rx mg tablet Allergies Allergy/AdvReac Type Severity Reaction Status Date / Time morphine Allergy ADR-Headach Verified 07/03/25 07:32 e diclofenac AdvReac Severe algy-pancre Verified 07/03/25 07:32 atitis methotrexate AdvReac Intermediate ADR-Nausea Verified 07/03/25 07:32 Current Medications Generic Name Dose Route Start Last Admin Trade Name Freq PRN Reason Stop Dose Admin Sodium Chloride 1,000 mls @ 30 mls/hr 07/03/25 07:30 07/03/25 07:58 Sodium Chloride 0.9% IV 07/04/25 07:29 30 mls/hr .Q24H MONICA Administration PFSH Anesthesia Medical History Seronegative rheumatoid arthritis of both hands Immunization counseling High risk medication use Degenerative joint disease (DJD) of lumbar spine Inflammatory arthritis Hyperlipidemia Type 2 diabetes mellitus without complications Essential hypertension Surgical History History of History of hernia repair History of cholecystectomy History of rotator cuff surgery History of knee replacement, total History of removal of cyst Family History Mother Stroke Hypertension Family history of premature coronary artery disease Diabetes Cancer CAD (coronary artery disease) Rheumatoid arthritis Father Hypertension Diabetes CAD (coronary artery disease) Family/Other Lupus Social History Smoking and tobacco/nicotine status: never used tobacco/nicotine Second hand smoke exposure: No Alcohol intake: never Substance/Drug Use: never Lives independently: Yes
[2025-07-03] MEDS: BUPivacaine 0.5% INJ 30 mL 20 ML XX (09:13)
--- NOTE | 2025-07-03 09:30 | PM.OP ---
Operative Report Date of procedure: July 03, 2025 Surgeon: Jakob Romero DPM Procedure: Date of procedure: 07/03/2025 Pre-op diagnosis: Right foot third toe hammertoe Post-op diagnosis: Same Post-op findings: Hammertoe Procedure done: 1. Right foot third PIPJ arthrodesis CPT 11134 2. Right foot third digit flexor to extensor digitorum longus tendon transfer CPT 36287 Implants: 2.5 headless compression screw [employer] Specimens removed: None Surgeon: Dr. Jakob Romero DPM Agricultural Extension Educator: Keegan Estimated blood loss: 2 cc Tourniquet time: 29 minutes Complications: None Patient is a 64-year-old female that has a history of right foot third digit hammertoe. The patient has had the aforementioned chief complaint for some time. Conservative treatment measures have been attempted and the patient has opted for surgical intervention at this time. A lengthy discussion regarding the procedure, including risks and complications has been had with the patient and is noted in the recent clinic note. Written and verbal consent have been obtained. All patient questions have been answered to the patient?s satisfaction. No written or verbal guarantees have been given or implied. The patient has been NPO since midnight. The history has been reviewed and the history and physical is current. The signed consent was confirmed and placed in the patient chart. Patient imaging has been reviewed and is consistent with the diagnosis. Under mild sedation, the patient was brought into the operating room and placed on the table in the supine position. IV antibiotics were given by the anesthesia team as preoperative surgical prophylaxis. MAC sedation was then performed by the anesthesiateam. A local field block was performed using 0.5% Marcaine plain. A pneumatic tourniquet was then placed about the right ankle. The operative extremity was then prepped and draped in the usual fashion. The extremity was then elevated and exsanguinated before the tourniquet was inflated to 250 mmHg. After inflation, the following procedure was then performed. Attention was directed to the right foot third digit where a 3.5 cm incision was made using a #15 blade. Dissection was carried down through subcutaneous the superficial fascia to the extensor tendon which was transected transversely at the level of the proximal to phalangeal joint. Sagittal bone saw was then used to remove the articular cartilage from the head of the proximal phalanx and base of the intermediate phalanx. Dissection was carried out through plantar soft tissues to isolate the long flexor tendon. This was isolated and transected transversely as distal as possible before being split longitudinally and wraparound to the dorsum of the proximal phalanx. A 2.5 headless compression screw was then driven in retrograde fashion across the proximal to phalangeal joint. Good positioning of the screw was noted on fluoroscopy. The long flexor tendon was then repaired on the dorsal aspect of the proximal phalanx using 2-0 Ethibond. Extensor tendon was then repaired using 2-0 Ethibond. Site was irrigated with sterile saline before attention was directed to closure. Skin was closed with 4-0 nylon in horizontal mattress fashion. Tourniquet was let down and good hyperemic response was noted to all digits of the right foot. Incision was dressed with Xeroform, 4 x 4 gauze, Kerlix, Jacoby. The patient tolerated the procedure and anesthesia well and without complication. The patient was transported from the operating room to the recovery room with vital signs stable and vascular status intact to all digits of the right foot. The patient was given both written and verbal instructions to remain weightbearing as tolerated in postop shoe to the operative extremity, to keep dressings/splint clean, dry and intact and to take pain medication as directed. The patient will follow-up in the outpatient setting at their scheduled appointment. The patient was discharged with my personal number and was instructed to call if any questions or issues should arise. They were discharged home once anesthesia criteria was met.
[2025-07-03 09:33] VITALS: BP 105/57; PULSE 58; RESP 12; TEMP 36.6; O2SAT 93
[2025-07-03 09:38] VITALS: BP 90/51; PULSE 58; RESP 16; O2SAT 95
--- NOTE | 2025-07-03 09:40 | ANE.PACU2 ---
Inpatient post-anesthesia follow up: Airway intact: Yes Vital signs: Temperature 97.5 F Pulse Rate 52 Respiratory Rate 16 Blood Pressure 122/51 Pulse Oximetry 97 Oxygen Delivery Me thod Room Air Oxygen Flow Rate Fraction of Inspir ed Oxygen Hydration adequate: Yes Nausea and vomiting: No Pain level: 1 Mental status: Baseline
[2025-07-03 09:43] VITALS: BP 108/63; PULSE 59; RESP 17; O2SAT 95
[2025-07-03 09:48] VITALS: BP 129/70; PULSE 62; RESP 117; TEMP 36.2; O2SAT 95
[2025-07-03 09:53] VITALS: BP 122/51; PULSE 52; RESP 16; TEMP 36.4; O2SAT 97
== END 2025-07-03 10:40 | disposition home or self-care (01) ==
PROVIDERS: PCP Obstetrics & Gynecology; Visit Provider Podiatrist Foot & Ankle Surgery
PROC: (CPT 27690; principal; 2025-07-03 08:45)
PROC: (CPT 27690; 2025-07-03 08:45)
DX: M20.41 Other hammer toe(s) (acquired), right foot (principal); K21.9 Gastro-esophageal reflux disease without esophagitis; Z79.891 Long term (current) use of opiate analgesic; E78.5 Hyperlipidemia, unspecified; E11.9 Type 2 diabetes mellitus without complications; I10 Essential (primary) hypertension; M06.9 Rheumatoid arthritis, unspecified
CPT/HCPCS: 27690; 28285; 36416; 73620; 76000; 82962; C1713; J0690; J2704; J3010; J3490; J7030

== ENCOUNTER → 2025-07-10 14:17 | Outpatient (BNVA) | payer OTHER, SELFPAY | PROVIDERS: PCP Obstetrics & Gynecology; Visit Provider Podiatrist Foot & Ankle Surgery | DX: E11.9 Type 2 diabetes mellitus without complications (principal); M20.41 Other hammer toe(s) (acquired), right foot | CPT/HCPCS: 99024 ==